=== PATIENT | male | born 1970 | race Caucasian/White ===

== ENCOUNTER 2020-05-01 17:23 | Emergency (ER) | payer MEDICAID, OTHER, SELFPAY ==
--- NOTE | ~2020-05-01 | XR_ITS ---
EXAMINATION: XR chest 1V portable INDICATION: Fever and headache TECHNIQUE: Portable AP chest at 2031 hours COMPARISON: None available FINDINGS: There is a right perihilar and infrahilar airspace opacity. The left lung is clear. No pleu ral effusion or pneumothorax is identified. The cardiomediastinal silhouette is normal. IMPRESSION: 1. Right perihilar and infrahilar airspace opacity, likely infectious. Recommend followup radiographs in 10-14 days after appropriate therapy to evaluate for improvement/resolution. Reviewed, dictated and finalized at location A. IMPRESSION: 1. Right perihilar and infrahilar airspace opacity, likely infectious. Recommen d followup radiographs in 10-14 days after appropriate therapy to evaluate for improvement/resolution.
--- NOTE | ~2020-05-01 | CT_ITS ---
EXAMINATION: CTA chest PE protocol DATE: 05/01/2020 22:45 INDICATION: Chest pain and elevated d-dimer TECHNIQUE: Computed tomography angiography (CTA) of the chest was performed with 100 mL Omnipaque-350 intravenous contrast timed to evaluate the pulmonary arteries. Coronal maximum intensity projection 3D-reconstructions were created by the technologist. The dose-length product (DLP) was 437.04 mGy-cm. Automated exposure control and iterative reconstruction technique were employed. COMPARISON: None. FINDINGS: The pulmonary arteries are well-opacified. Motion artifact slightly limits the examination. No pulmonary embolism is identified. There is an approximately 5.2 x 4.9 cm right perihilar masslike opacity extending into the right middle and upper lobes. The mass attenuates but does not occlude th e associated pulmonary arteries. There is bulky right hilar, right paratracheal, aorticopulmonary win elvis, subcarinal, and upper mediastinal lymphadenopathy. A small right pleural effusion is present. Th ere is no pneumothorax. Mild emphysema is noted. There is mild thoracic spondylosis. IMPRESSION: 1. No pulmonary embolism identified, examination slightly limited by motion artifact. 2. Right perihilar masslike opacity with bulky mediastinal and right hilar lymphadenopathy. Different ial includes pneumonia and primary bronchogenic carcinoma. Recommend serial imaging follow-up with ap propriate therapy to evaluate for improvement/resolution. If no change, recommend bronchoscopy. 3. Mild emphysema. Reviewed, dictated and finalized at location A. IMPRESSION: 1. No pulmonary embolism identified, examination slightly limited by motion art ifact. 2. Right perihilar masslike opacity with bulky mediastinal and right hilar lymp hadenopathy. Differential includes pneumonia and primary bronchogenic carcinoma . Recommend serial imaging follow-up with appropriate therapy to evaluate for i mprovement/resolution. If no change, recommend bronchoscopy. 3. Mild emphysema.
--- NOTE | ~2020-05-01 | CT_ITS ---
EXAMINATION: CT brain wo con INDICATION: Headache COMPARISON: None TECHNIQUE: Standard unenhanced head CT. The dose-length product (DLP) was 605.33 mGy-cm. The mA was a djusted according to patient size. Iterative reconstruction technique was employed. FINDINGS: There is no intracranial hemorrhage, acute infarction, or abnormal mass lesion. The ventric les are normal. There is no abnormal mass effect or midline shift. The gonzalez-white matter differentiat ion is normal. The basal cisterns are patent. The orbits are normal. The paranasal sinuses, mastoids and calvarium are normal. IMPRESSION: 1. No acute intracranial abnormality. Reviewed, dictated and finalized at location A.
[2020-05-01 18:03] VITALS: BP 120/72; PULSE 89; RESP 20; TEMP 38.2; O2SAT 100
[2020-05-01 18:15] LABS: Basophils Absolute Auto 0.1 K/mm3 (0.0-0.1); Basophils Percent Auto 0.6 % (0.2-1.2); Eosinophils Absolute Auto 0.1 K/mm3 (0-0.3); Eosinophils Percent Auto 0.4 % (0-4.4); Hematocrit 38.5 % (42.0-52.0); Hemoglobin 12.8 g/dL (14.0-18.0); Immature Granulocyte Absolute 0.05 K/mm3 (0.00-0.031); Immature Granulocyte Percent A 0.4 % (0-0.5); Lymphocytes Absolute Auto 1.71 K/mm3 (0.9-3.2); Lymphocytes Percent Auto 14.1 % (18.3-44.2); Mean Corpuscular HGB Conc 33.2 g/dl (32-36); Mean Corpuscular Hemoglobin 29.6 pg (26-34); Mean Corpuscular Volume 89.1 fl (80-100); Mean Platelet Volume 9.4 fl (7.4-10.4); Monocytes Absolute Auto 0.6 K/mm3 (0.1-0.6); Neutrophils Absolute Auto 9.6 K/mm3 (1.3-6.7); Neutrophils Percent Auto 79.5 % (45.5-73.1); Platelet Count Result 243 k/mm3 (150-375); Red Blood Count 4.32 M/mm3 (4.6-6.20); Red Cell Distribution Width 12.7 % (11.5-14.5); White Blood Count 12.1 K/mm3 (4.5-10.0)
[2020-05-01 18:31] LABS: Blood Urea Nitrogen 17 mg/dL (9-20); Calcium 8.9 mg/dL (8.4-10.2); Carbon Dioxide 28 mmol/L (22-30); Chloride 101 mmol/L (98-107); Estimated CRCL calculation 80 ml/min; Estimated Glomerular Filt Rate > 60; Glucose 103 mg/dL (75-110); Potassium 3.9 mmol/L (3.4-5.0); Sodium 134 mmol/L (137-145)
--- NOTE | 2020-05-01 20:33 | ED.GENADULT ---
HPI - General Adult General Chief complaint: Unspecified Stated complaint: bodyaches, headaches, no appetite Time Seen by Provider: 05/01/20 20:15 History of Present Illness HPI narrative: Patient is a 49 y/o male complaining of headache, sore throat, cough, chest pain and back pain for 2-3 days. He describes his headache as aching and mild. There is no alleviating or exacerbating factor. He also has poor appetite. He denies any vomiting or diarrhea. He felt hot, but did not check his own temperature. Related Data Allergies Allergy/AdvReac Type Severity Reaction Status Date / Time No Known Allergies Allergy Mild Unverified 11/22/08 15:26 Review of Systems Constitutional: Constitutional: Reports as per HPI, Denies chills, Reports fever(s), Reports headache(s) and Denies weakness Eyes: Eyes: Denies blurry vision ENT: Denies headache(s), Denies neck pain and Reports sore throat Cardiovascular: Cardiovascular: Reports chest pain and Denies dyspnea Respiratory: Respiratory: Reports cough and Denies dyspnea Gastrointestinal: Gastrointestinal: Denies abdominal pain, Denies diarrhea, Denies nausea and Denies vomiting Genitourinary: Genitourinary: Denies hematuria and Denies dysuria Musculoskeletal: Musculoskeletal: Reports back pain and Denies neck pain Neurologic: Reports headache(s), Denies focal weakness and Denies weakness Exam Const: General: no acute distress and well developed Orientation/consciousness: oriented to person, oriented to place, oriented to time and patient oriented x3 HENMT: Head: normocephalic Ears: external ears normal General nose exam: Normal external nose present Eyes: General: appearance normal, both eyes and all related structures Conjunctivae: conjunctivae normal Neck: Neck: normal visual inspection and full ROM Chest: Chest palpation & inspection: normal inspection of the chest and no tenderness Resp: Effort & Inspection: normal respiratory effort Auscultation: clear to auscultation bilaterally Cardio: Rate: regular rate Rhythm: regular rhythm GI: GI Palp: No abdominal tenderness and Yes Soft to palpation Skin: General skin exam: normal color and turgor normal Neuro: General: oriented to person, oriented to place, oriented to time and patient oriented x3 Cognition (Neuro): normal cognition Extrem: General: normal to inspection, full ROM and no pedal edema Psych: Appearance: grossly normal Mental Status: mental status grossly normal Affect: normal affect Course Reevaluation(s) Reevaluation #1: Rechecked. Patient feels better and prefers to go home. Informed patient about CT results which may suggest possible lung mass. Informed patient that he needs to follow up with pulmonary for further work up. Also instructed patient to self isolation pending COVID test results. Date: 05/01/20 Time: 23:29 Consultations Consultation #1: Discussed with Dr. Mendoza (pulmonary), who recommends discharge if patient is stable for discharge and states that patient can follow up with her in office for further evaluation. Date: 05/01/20 Time: 23:28 Vital Signs Vital signs: Vital Signs Temperature 38.2 C H 05/01/20 18:03 Pulse Rate 89 05/01/20 18:03 Respiratory Rate 20 05/01/20 18:03 Blood Pressure 120/72 05/01/20 18:03 Pulse Oximetry 100 05/01/20 18:03 Temperature 37.3 C 05/02/20 00:06 Pulse Rate 90 05/02/20 00:06 Respiratory Rate 20 05/02/20 00:06 Blood Pressure 115/83 05/02/20 00:06 Pulse Oximetry 97 05/02/20 00:06 Medical Decision Making Vital Signs Vital Signs: Vital Signs Temperature 38.2 C H 05/01/20 18:03 Pulse Rate 89 05/01/20 18:03 Respiratory Rate 20 05/01/20 18:03 Blood Pressure 120/72 05/01/20 18:03 Pulse Oximetry 100 05/01/20 18:03 Temperature 37.3 C 05/02/20 00:06 Pulse Rate 90 05/02/20 00:06 Respiratory Rate 20 05/02/20 00:06 Blood Pressure 115/83 05/02/20 00:06 Pulse Oximetry 97 05/02/20 00:06 L
--- NOTE | 2020-05-01 20:36 | ECG_ITS ---
Measurements Intervals [place] Rate: 83 P: 27 DC: 148 QRS: -16 QRSD: 122 T: 28 QT: 352 QTc: 414 Interpretive Statements SINUS RHYTHM RIGHT BUNDLE BRANCH BLOCK MINIMAL Q WAVES- HIGH LATERAL LEADS ABNORMAL ECG Electronically Signed On 05-02-2020 7:12:23 CDT by Ry Paulino D.O.
[2020-05-01 21:10] VITALS: BP 132/76; PULSE 81; RESP 18; O2SAT 96
[2020-05-01 21:16] LABS: Troponin I < 0.012 ng/mL (0.000-0.034)
[2020-05-01] MEDS: SODIUM CHLORIDE 0.9% IV 1,000 ML 999 ML IV CONT (21:48)
[2020-05-01 22:08] VITALS: RESP 22; O2SAT 98
[2020-05-01 22:08] LABS: Lactic Acid Reflex 0.8 mmol/L (0.7-2.1)
[2020-05-01 22:09] LABS: D Dimer 1.16 ug/mL (<0.48)
[2020-05-01 22:15] VITALS: BP 123/80; PULSE 86; RESP 22; O2SAT 98
--- NOTE | 2020-05-01 22:44 | PC.NURSE ---
Patient in CT at this time.
[2020-05-01 22:52] LABS: Add Urine Microscopic? YES; Appearance Urine Clear (Clear); Bilirubin Urine Negative (Negative); Blood Urine 1+ (Negative); Color Urine Straw (Yellow); Glucose Urine UA Negative (Negative); Ketones Urine Negative (Negative); Leukocyte Esterase Ur Negative LEU/UL (Negative); Mucus Urine Rare /lpf; Nitrate Urine Negative (Negative); Protein Urine Negative (Negative); RBC Urine 0-2 /hpf (0-2); Specific Grav Ur 1.013 (1.001-1.035); Urobilinogen Urine Negative mg/dL (<2.0); WBC Urine 0-3 /hpf
[2020-05-01 23:31] VITALS: BP 115/83; PULSE 85; RESP 21; O2SAT 96
[2020-05-02 00:06] VITALS: BP 115/83; PULSE 90; RESP 20; TEMP 37.3; O2SAT 97
[2020-05-02 15:05] LABS: SARS-CoV-2 RNA PCR Negative
== END 2020-05-02 00:08 | disposition home or self-care (01) ==
PROVIDERS: Emergency Provider Emergency Medicine
DX: Z20.828 Contact with and (suspected) exposure to other viral communicable diseases (principal); J18.9 Pneumonia, unspecified organism; D38.1 Neoplasm of uncertain behavior of trachea, bronchus and lung
CPT/HCPCS: 36415; 70450; 71045; 71275; 80048; 81001; 83605; 84484; 85025; 85380; 87040; 87081; 87635; 87880; 93005; 96361; 96365; 96375; 99284; C9803; J0456; J0696; J7030; Q9967; U0003

== ENCOUNTER 2020-05-17 11:34 | Inpatient (IN) | payer MEDICAID, SELFPAY ==
--- NOTE | ~2020-05-17 | XR_ITS ---
EXAMINATION: XR chest 2V DATE: 05/17/2020 11:58 INDICATION: Shortness of breath TECHNIQUE: PA and lateral views of the chest are obtained. COMPARISON: 05/01/2020 FINDINGS: There has been interval worsening of the previously described right perihilar masslike opac ity extending into the middle and upper lobes. There is a trace right pleural effusion. The left lung is clear. The cardiomediastinal silhouette is normal. The visualized osseous structures are unremark able. Widening of the right paratracheal stripe is consistent with mediastinal lymphadenopathy seen o n the comparison CT. IMPRESSION: 1. Interval worsening of the previously described right perihilar masslike opacity which could reflec t worsening pneumonia or primary bronchogenic carcinoma. If patient has undergone trial of antibiotic s without response, would recommend bronchoscopy. Reviewed, dictated and finalized at location A. IMPRESSION: 1. Interval worsening of the previously described right perihilar masslike opac ity which could reflect worsening pneumonia or primary bronchogenic carcinoma. If patient has undergone trial of antibiotics without response, would recommend bronchoscopy.
[2020-05-17 11:40] VITALS: BP 130/89; PULSE 97; RESP 18; TEMP 36.4; O2SAT 97
--- NOTE | 2020-05-17 11:44 | ECG_ITS ---
Measurements Intervals [place] Rate: 85 P: 18 NM: 132 QRS: -4 QRSD: 104 T: 22 QT: 350 QTc: 418 Interpretive Statements SINUS RHYTHM INCOMPLETE RIGHT BUNDLE BRANCH BLOCK BORDERLINE ECG Electronically Signed On 05-17-2020 12:48:05 CDT by Ry Paulino D.O.
[2020-05-17 11:53] LABS: Basophils Absolute Auto 0.1 K/mm3 (0.0-0.1); Basophils Percent Auto 0.8 % (0.2-1.2); Eosinophils Absolute Auto 0.2 K/mm3 (0-0.3); Eosinophils Percent Auto 1.4 % (0-4.4); Hematocrit 37.8 % (42.0-52.0); Hemoglobin 12.5 g/dL (14.0-18.0); Immature Granulocyte Absolute 0.25 K/mm3 (0.00-0.031); Immature Granulocyte Percent A 2.4 % (0-0.5); Lymphocytes Absolute Auto 1.42 K/mm3 (0.9-3.2); Lymphocytes Percent Auto 13.7 % (18.3-44.2); Mean Corpuscular HGB Conc 33.1 g/dl (32-36); Mean Corpuscular Hemoglobin 29.1 pg (26-34); Mean Corpuscular Volume 87.9 fl (80-100); Mean Platelet Volume 9.2 fl (7.4-10.4); Monocytes Absolute Auto 0.6 K/mm3 (0.1-0.6); Monocytes Percent Auto 5.8 % (2.6-8.5); Neutrophils Absolute Auto 7.9 K/mm3 (1.3-6.7); Neutrophils Percent Auto 75.9 % (45.5-73.1); Platelet Count Result 363 k/mm3 (150-375); Red Cell Distribution Width 12.3 % (11.5-14.5); White Blood Count 10.4 K/mm3 (4.5-10.0)
[2020-05-17 12:06] LABS: Anion Gap 12.5 mmol/L (7-16); Blood Urea Nitrogen 11 mg/dL (9-20); Calcium 9.5 mg/dL (8.4-10.2); Carbon Dioxide 28 mmol/L (22-30); Chloride 99 mmol/L (98-107); Estimated Glomerular Filt Rate > 60; Glucose 99 mg/dL (75-110); Potassium 4.5 mmol/L (3.4-5.0); Sodium 135 mmol/L (137-145)
--- NOTE | 2020-05-17 12:29 | ED.SOB ---
HPI - SOB/Dyspnea General Chief Complaint: Shortness of Breath/Dyspnea Stated Complaint: SOB Time Seen by Provider: 05/17/20 11:43 Source: patient Mode of arrival: ambulatory Limitations: no limitations History of Present Illness HPI Narrative: This patient is a 49 year old male who presents for evaluation shortness of breath . He states he has been having sob for 2 weeks. He was evaluated 2 weeks ago at [facility] . He was diagnosed with pneumonia and a lung mass. He has completed his antibiotics, and he states he is getting worse. He states he thinks he is still having fever because he is swelling at night. Related Data Home Medications Medication Instructions Recorded Confirmed No Home Medications 05/17/20 05/17/20 Allergies Allergy/AdvReac Type Severity Reaction Status Date / Time No Known Allergies Allergy Mild Unverified 11/22/08 15:26 Review of Systems Review of Systems: All systems reviewed & are unremarkable except as noted in HPI and below Constitutional: Constitutional: Reports fatigue Cardiovascular: Cardiovascular: Reports chest pain Respiratory: Respiratory: Reports cough, Reports hemoptysis and Reports dyspnea Gastrointestinal: Gastrointestinal: Denies abdominal pain and Denies nausea Neurologic: Denies dizziness and Denies headache(s) [facility] Past Medical History Medical History (Updated 05/17/20 @ 19:07 by Ania Becerra MD) COPD (chronic obstructive pulmonary disease) History of tobacco abuse stopped May 01, 2020 Lung mass Patient denies medical problems Family History Family History (Updated 05/17/20 @ 18:28 by Karrie Mendoza MD) Mother Hypertension Cerebrovascular accident Diabetes mellitus Son Shortness of Breath due to welding Social History Social History (Updated 05/17/20 @ 18:28 by Karrie Mendoza MD) Smoking packs per day: 1 Smoking cigarettes per day: 20.0 Years smoked: 20 Smoking pack-years: 20.00 Smoking status: Former smoker Tobacco type: cigarettes Alcohol intake: current Drinks per week: 1 Substance use: current Substance use type: marijuana Other substance usage details: occasional Last use: 05/06/20 Living arrangements: with family Additional living arrangements comments: girlfriend, and others Occupation/Education: occupation Additional occupation/education comments: [employer], works really hard, has not been able to work since May 01 Gender identity (if verbalized by the patient): Male Spiritual care concerns: Yes Exam Const: General: alert Orientation/consciousness: patient oriented x3 HENMT: Head: normocephalic and atraumatic Face and sinus: face symmetric Mouth: Yes moist mucous membranes Throat: tonsils normal and uvula midline Eyes: Pupils: Equal, round and reactive pupils present EOM: EOMs intact bilaterally Neck: Neck: no lymphadenopathy Chest: Chest palpation & inspection: normal inspection of the chest Resp: Auscultation: wheezes right upper and posterior Other: at rest patient in no distress , He appears out of breath with talking . Cardio: Rate: regular rate Rhythm: regular rhythm Heart sounds: no murmurs GI: GI Palp: Yes Soft to palpation, No Tenderness to palpation present (GI), No Guarding due to palpation present (GI) and No Rigid due to palpation Skin: General skin exam: normal color Rashes: no rashes Neuro: General: patient oriented x3 and moves all extremities Course Consultations Consultation #1: I Discussed case and CT with Dr. Mendoza. She states she will look up his info and possible perform bronchoscopy tomorrow Date: 05/17/20 Time: 12:30 Consultation #2: I Discussed patient with zheng who accepts to hospitalist service. Date: 05/17/20 Time: 13:43 Vital Signs Vital signs: Vital Signs Temperature 97.5 F L 05/17/20 11:40 Pulse Rate 97 05/17/20 11:40 Respiratory Rate 18 05/17/20 11:40 Blood Pressure 130/89 05/17/20 11:
[2020-05-17 12:44] LABS: Alveolar/Arterial O2 Gradient 34.7 mmHg; Carboxyhemoglobin 0.3 % THb (0-2.0); Fractional Inspired Oxygen 21 %; HCO3 ABG 26.5 mEq/l (22.0-26.0); Methemoglobin ABG 0.1 %THb (0-1.5); Oxygen Content ABG 16.1 %vol (16.0-22.0); Oxygen Saturation ABG 95.4 % (95.0-100.0); Oxyhemoglobin 93.9 % THb (90.0-100.0); PCO2 ABG 36.5 mmHg (35.0-45.0); PO2 ABG 71.3 mmHg (80.0-100.0); Reduced Hemoglobin 5.7 %THb (0-5.0); Total Hemoglobin 12.2 g/dL (12.0-18.0); pH ABG 7.478 (7.350-7.450)
[2020-05-17 12:46] LABS: Device ROOM AIR; Modified Allen's Test Pass; Site Drawn LEFT RADIAL
[2020-05-17 13:05] LABS: INR 1.1; Prothrombin Time 13.5 Seconds (11.1-14.7)
[2020-05-17 13:06] LABS: Partial Thromboplastin Time 34.1 SECONDS (22.3-36.8)
[2020-05-17 13:11] LABS: Alanine Aminotransferase 48 U/L (4-50); Albumin Level 3.7 g/dL (3.5-5.1); Alkaline Phosphatase 105 U/L (38-126); Aspartate Amino Transferase 146 U/L (17-59); Bilirubin,Total 0.2 mg/dL (0.2-1.3)
[2020-05-17 13:22] LABS: Troponin I < 0.012 ng/mL (0.000-0.034)
[2020-05-17 13:39] VITALS: BP 138/70; PULSE 93; RESP 20; O2SAT 99
[2020-05-17 15:02] VITALS: BP 128/87; PULSE 83; RESP 22; O2SAT 97
[2020-05-17 15:19] VITALS: BP 115/70; PULSE 85; RESP 22; O2SAT 97
[2020-05-17 15:33] VITALS: BP 143/82; PULSE 85; RESP 16; TEMP 36.9; O2SAT 99; BMI 27.9
--- NOTE | 2020-05-17 15:33 | ADMGEN ---
This patient, Sourav Pool, was admitted to Medical Room 343-01. Patient/family oriented to hospital policies and general routines including ID bracelet, bed and alarms, visiting hours, pain management, procedures, bathroom and other care routines, personal items, smoking policy, room service/diet, and visiting hours. Valuables list has been completed. Information on how to activate the Rapid Response Team has been discussed. Patient/Family are encouraged to report perceived risks to care and to ask questions if they do not understand what they are told or what they should do.
[2020-05-17 15:57] VITALS: BMI 29.0
--- NOTE | 2020-05-17 18:07 | PM.CNPUL ---
Assessment and Plan Assessment and plan (1) Lung mass: Code(s): R91.8 - Other nonspecific abnormal finding of lung field Status: Acute Assessment and Plan: He has a right hilar mass 5.2 x 4.9 cm noted on CTA 05/01/2020 when he was treated for pneumonia. He is no better, continuing to cough now with small amounts of hemoptysis. He is short of breath. He has not been well enough to go back to work. Mild hyponatremia, normocytic anemia, mild hypoxemia. Concern is for lung cancer. PLAN: Bronchoscopy 12 noon on May 18 NPO after midnight empiric antibiotics for possible coexisting pneumonia bronchodilator therapy for emphysema I spoke with the patient, explained the procedure. I spoke with his father Kevin Serna [phone], and explained that we are planning the bronch tomorrow. (2) Recurrent pneumonia: Code(s): J18.9 - Pneumonia, unspecified organism Status: Acute Assessment and Plan: He still has infiltrate on the right side, may be a postobstructive pneumonia or slowly resolving pneumonia versus recurrent pneumonia. He received ceftriaxone in the emergency department. I will restart this, will receive a 2nd dose tomorrow. continues have a mild leukocytosis, cough, shortness of breath, right-sided infiltrate. (3) COPD (chronic obstructive pulmonary disease): Code(s): J44.9 - Chronic obstructive pulmonary disease, unspecified Status: Acute Assessment and Plan: Mild emphysema noted on chest CTA May 01; add bronchodilator therapy (4) Shortness of Breath: Code(s): R06.02 - Shortness of breath Status: Acute Assessment and Plan: worsening over the last 2 weeks with cough, hemoptysis, failure to improve on treatment for pneumonia (5) History of tobacco abuse: Code(s): Z87.891 - Personal history of nicotine dependence Status: Acute Assessment and Plan: stopped May 01, ppd x 20 years History of Present Illness History of Present Illness Consult date: 05/17/20 Requesting physician: Catie Gaona MD Chief complaint: right lung mass,dyspnea Narrative: NEW: Right lung mass Sourav Pool is a 49 yo man with a large right lung mass. He was in the ED May 01 with cough, sputum shortness of breath, was treated for pneumonia. He has not gone back to work since then. He has had worsening cough with bloody sputum. He has not eaten well for the last few weeks. He has not smoked since the last ER visit. He has not lost weight, but has not checked. His sodium is mildly decreased 135, low. WBC 10.4, mild normocytic anemia H/H 12.5/37.8%, mild oxygen deficit on room air, pH 7.478 / pCO2 36.5 / 71 pO2 / 26 HCO3 / 95.4%, PT 13, PTT 34, normal. Continues to have infiltrate on the right side on CXR. SARS-CoV-2 negative May 01 at ER visit. Review of Systems Review of Systems: All systems reviewed & are unremarkable except as noted in HPI and below (HPI) Eyes: Eyes: Reports no additional eye complaints Cardiovascular: Cardiovascular: Reports chest pain (right side of chest hurts with taking deep breaths) Respiratory: Respiratory: Reports cough, Reports hemoptysis and Reports dyspnea Gastrointestinal: Gastrointestinal: Reports other (decreased appetite) Genitourinary: Genitourinary: Denies dysuria Endocrine: Endocrine: Reports polydipsia [facility] Past Medical History Medical History (Updated 05/17/20 @ 18:52 by Karrie Mendoza MD) COPD (chronic obstructive pulmonary disease) History of tobacco abuse stopped May 01, 2020 Lung mass Patient denies medical problems Family History Family History (Up
[2020-05-17 22:19] VITALS: BP 132/79; PULSE 90; RESP 16; TEMP 36.9; O2SAT 99
[2020-05-18] VITALS (13 sets, daily range): BP systolic 92–132; BP diastolic 50–75; PULSE 76–91; RESP 16–30; TEMP 36.3–37.5; O2SAT 93–100; BMI 29.0
--- NOTE | 2020-05-18 00:20 | PM.IMHP ---
H&P: HPI History of Present Illness Date/Time: 05/18/20 00:20 Chief complaint: right lung mass,dyspnea Narrative: Sourav Pool is a 49 year old male who came to the er on 05/01/20. He was diagnosed with pneumonia at that time. He has been having a poor appetite. And a cough. He had been a smoker. The patient was treated with a Zithromax and at that time. He tells me that he had a Choice of staying inpatient or going home. on 05/01/2020 his chest x-ray was read as right perihilar and infrahilar airspace opacities likely infectious recommend follow-up in 10-14 days after therapy. He also had a head CT that day that was read as no acute intracranial abnormalities. chest x-ray was read as interval worsening of the previously described right perihilar masslike opacity which could reflect worsening pneumonia her primary bronchogenic carcinoma. Recommended bronchoscopy. The chest CT a on 05/01/20 was read as no pulmonary embolism right perihilar masslike opacities bulky mediastinal and right hilar lymphadenopathy. Differential includes orders and primary bronchogenic carcinoma. mild emphysema. the patient has since quit smoking since that day. He had a repeat chest x-ray today that was read as interval worsening of the previous described right perihilar masslike is which could reflect of her pneumonia primary bronchogenic carcinoma. Dr. Mendoza has been consulted and has already seen the patient. She has him scheduled for a bronchoscopy Tomorrow. The patient had come to the emergency room due to evaluation of shortness of breath. Has been short of breath for 2 weeks. Patient does not know if he has a fever but he has been having night sweats. I have spent approximately 45 minutes with the patient. Date of service is 05/17/2020 Review of Systems Review of Systems: All systems reviewed & are unremarkable except as noted in HPI and below Constitutional: Constitutional: Reports as per HPI and Reports no additional constitutional complaints Eyes: Eyes: Reports as per HPI and Reports no additional eye complaints ENT: Reports system reviewed and no additional complaints, except as documented and Reports Normal hearing present Cardiovascular: Cardiovascular: Reports no additional cardiovascular complaints Respiratory: Respiratory: Reports no additional respiratory complaints and Reports no additional respiratory complaints Gastrointestinal: Gastrointestinal: Reports as per HPI and Reports no additional gastrointestinal complaints Musculoskeletal: Musculoskeletal: Reports no additional musculoskeletal complaints Integumentary/Breasts: Skin/Breast: Reports system reviewed and no additional complaints, except as docu and Reports as per HPI Neurologic: Reports system reviewed and no additional complaints, except as documented, Reports as per HPI and Reports Normal hearing present Psychiatric: Psychiatric: Reports no additional psychiatric complaints and Reports as per HPI Endocrine: Endocrine: Reports no additional endocrine complaints Hematologic/Lymphatic: Hematologic/Lymphatic: Reports no additional hematologic/lymphatic complaints Allergic/Immunologic: Allergic/Immunologic: Reports no additional allergic/immunologic complaints [facility] Past Medical History Medical History COPD (chronic obstructive pulmonary disease) History of tobacco abuse stopped May 01, 2020 Lung mass Patient denies medical problems Family History Family History Mother Hypertension Cerebrovascular accident Diabetes mellitus Son Shortness of Breath due to welding Social History Social History (Updated 05/18/20 @ 00:39 by Monica Agosto NP) Social History: the patient stated that he has 2 children and he lives with his girlfriend. He is a [employer]. Patient tells me that he quit smoking May 06, 2020. He occasionally uses marijuana.
[2020-05-18] MEDS: MORPHINE SULFATE 4 MG/ML INJ IV PUSH ×2 (06:01→19:43)
[2020-05-18 06:32] LABS: Basophils Absolute Auto 0.1 K/mm3 (0.0-0.1); Basophils Percent Auto 0.7 % (0.2-1.2); Eosinophils Absolute Auto 0.1 K/mm3 (0-0.3); Eosinophils Percent Auto 0.9 % (0-4.4); Hematocrit 35.2 % (42.0-52.0); Hemoglobin 11.6 g/dL (14.0-18.0); Immature Granulocyte Absolute 0.25 K/mm3 (0.00-0.031); Immature Granulocyte Percent A 2.8 % (0-0.5); Lymphocytes Absolute Auto 1.35 K/mm3 (0.9-3.2); Lymphocytes Percent Auto 15.3 % (18.3-44.2); Mean Corpuscular Hemoglobin 28.6 pg (26-34); Mean Corpuscular Volume 86.9 fl (80-100); Mean Platelet Volume 9.3 fl (7.4-10.4); Monocytes Absolute Auto 0.5 K/mm3 (0.1-0.6); Neutrophils Absolute Auto 6.5 K/mm3 (1.3-6.7); Neutrophils Percent Auto 74.3 % (45.5-73.1); Platelet Count Result 337 k/mm3 (150-375); Red Blood Count 4.05 M/mm3 (4.6-6.20); Red Cell Distribution Width 12.3 % (11.5-14.5); White Blood Count 8.8 K/mm3 (4.5-10.0)
[2020-05-18 06:51] LABS: Alanine Aminotransferase 53 U/L (4-50); Albumin Level 3.9 g/dL (3.5-5.1); Alkaline Phosphatase 109 U/L (38-126); Anion Gap 13.5 mmol/L (7-16); Aspartate Amino Transferase 169 U/L (17-59); Bilirubin,Total 0.3 mg/dL (0.2-1.3); Blood Urea Nitrogen 14 mg/dL (9-20); Calcium 9.4 mg/dL (8.4-10.2); Carbon Dioxide 27 mmol/L (22-30); Chloride 97 mmol/L (98-107); Estimated CRCL calculation 90 ml/min; Estimated Glomerular Filt Rate > 60; Glucose 101 mg/dL (75-110); Potassium 4.5 mmol/L (3.4-5.0); Sodium 133 mmol/L (137-145)
--- NOTE | 2020-05-18 10:54 | PM.IMPN ---
Progress Note: A&P Assessment and Plan (1) Lung mass: Code(s): R91.8 - Other nonspecific abnormal finding of lung field Status: Acute Assessment and Plan: A right hilar mass 5.2 x 4.9 cm was seen on CTA 05/01/2020. These findings are concerning for lung cancer. he is maintaining adequate oxygenation on room air. Pulmonology has been consulted and recommendations are appreciated He underwent bronchoscopy this afternoon. He tolerated the procedure well. Will await results. (2) Recurrent pneumonia: Code(s): J18.9 - Pneumonia, unspecified organism Status: Acute Assessment and Plan: right side infiltrate noted. he was recently treated with a course of azithromycin but has not improved since that time.This may be a postobstructive pneumonia. He complains of cough and shortness of breath. He is afebrile and without leukocytosis. Continue IV Rocephin. Continue supportive care with supplemental oxygen as needed, acetaminophen for fever, bronchodilators, and Mucinex Will attempt collection of sputum culture. blood cultures are pending. (3) COPD (chronic obstructive pulmonary disease): Code(s): J44.9 - Chronic obstructive pulmonary disease, unspecified Status: Acute Assessment and Plan: Chronic. He is maintaining adequate oxygenation. Continue albuterol and Spiriva. (4) History of tobacco abuse: Code(s): Z87.891 - Personal history of nicotine dependence Status: Acute Assessment and Plan: He smoked 1 pack per day for 20 years. He quit smoking on 05/01/2020. Congratulated patient on smoking cessation. Reinforce continued cessation. Subjective Date/time seen: 05/18/20 10:54 Interval history: Date of service: 05/18/2020 he reports he is feeling well. He is coughing occasionally with clear sputum production. He feels mildly short of breath. He has just returned from his bronchoscopy and reports he tolerated the procedure well but is feeling very sleepy. He denies any wheezing, chest pain or palpitations. he complains of sinus congestion and pressure across his frontal face. He denies nausea, vomiting, fever, chills, dizziness, or lightheadedness. He has not eaten anything as he had been NPO for his bronchoscopy. He has no additional concerns at this time. Review of Systems Review of Systems: Narrative: A 12 point review of systems was reviewed with pertinent positives and negatives as per HPI. Exam Narrative: Exam Narrative: Mr. Pool is a well-nourished 49-year-old male who is lying supine in bed. He appears comfortable and is in no acute distress. HR 76, BP 121/69, RR 16, T 99.0?, 98% on room air Neuro: awake, alert and oriented x4, speech clear, no focal neuro deficits noted HEENMT: normocephalic, atraumatic, EOMI, sclerae anicteric, moist oral mucosa, tongue midline, nares patent, no sinus tenderness Neck: supple, no lymphadenopathy Respiratory: diminished breath sounds without wheezing or crackles, normal respiratory effort Cardio: regular rate, regular rhythm with S1-S2 Abdomen: nondistended, normoactive bowel sounds, soft, nontender Extremities: no edema, erythema, cyanosis, clubbing, or tenderness to palpation, DP pulses 2+ bilaterally Skin: no rashes or lesions, warm and dry Psych: appropriate mood an affect, judgment and insight intact Objective Data Vital Signs Vital Signs: Vital Signs - 24 hr 05/17/20 11:40 05/17/20 13:39 05/17/20 15:02 Temperature 97.5 F L Pulse Rate 97 93 83 Respiratory Rate 18 20 22 H Blood Pressure 130/89 138/70 128/87 Pulse Oximetry 97 99 97 05/17/20 15:19 05/17/20 15:33 05/17/20 22:19 Temperature 98.4 F 98.5 F Pulse Rate 85 85 90 Respiratory Rate 22 H 16 16 Blood Pressure 115/70 143/82 H 132/79 Pulse Oximetry 97 99 99 05/18/20 06:00 Temperature 99 F Pulse Rate 76 Respiratory Rate 16 Blood Pressure 121/69 Pulse Oximetry 99 Intake/Ou
--- NOTE | 2020-05-18 11:07 | PC.NURSE ---
Patient to GI lab for procedure per stretcher.
[2020-05-18] MEDS: LACTATED RINGERS 1,000 ML 150 ML IV CONT (11:23)
--- NOTE | 2020-05-18 11:38 | WPDANESEPPF ---
Anes - Initial Pre Proc Eval Procedure: Operation Date: 05/18/20 12:00 Proposed Procedures p Bronchoscopy - Karrie Mendoza MD Date/Time: 05/18/20 11:38 Surgeon: Nia Snowden PA-C Pre Op Diagnosis: right lung mass,dyspnea Patient Data Age: 49 Gender: M Height: 5 ft 6 in Weight: 81.6 kg Last Vital Signs Temp 97.7 F 05/18/20 11:26 Pulse 82 05/18/20 11:26 Resp 22 H 05/18/20 11:26 BP 132/75 05/18/20 11:26 Pulse Ox 97 05/18/20 11:26 Allergies Allergy/AdvReac Type Severity Reaction Status Date / Time No Known Allergies Allergy Mild Verified 05/18/20 11:23 Home Medications Medication Instructions Recorded Confirmed Type No Home Medications 05/17/20 05/17/20 History Laboratory Tests 05/17/20 05/17/20 05/17/20 11:46 11:46 12:25 WBC 10.4 K/mm3 H K/mm3 (4.5-10.0) RBC 4.30 M/mm3 L M/mm3 (4.6-6.20) Hgb 12.5 g/dL L g/dL (14.0-18.0) Hct 37.8 % L % (42.0-52.0) MCV 87.9 fl fl (80-100) MCH 29.1 pg pg (26-34) MCHC 33.1 g/dl g/dl (32-36) RDW 12.3 % % (11.5-14.5) Plt Count 363 k/mm3 k/mm3 (150-375) MPV 9.2 fl fl (7.4-10.4) Immature Gran % (Auto) 2.4 % H % (0-0.5) Neut % (Auto) 75.9 % H % (45.5-73.1) Lymph % (Auto) 13.7 % L % (18.3-44.2) [place] % (Auto) 5.8 % % (2.6-8.5) Eos % (Auto) 1.4 % % (0-4.4) Baso % (Auto) 0.8 % % (0.2-1.2) Lymph # (Auto) 1.42 K/mm3 K/mm3 (0.9-3.2) [place] # (Auto) 0.6 K/mm3 K/mm3 (0.1-0.6) Eos # (Auto) 0.2 K/mm3 K/mm3 (0-0.3) Baso # (Auto) 0.1 K/mm3 K/mm3 (0.0-0.1) Abs Immat Gran (auto) 0.25 K/mm3 H K/mm3 (0.00-0.031) Absolute Neuts (auto) 7.9 K/mm3 H K/mm3 (1.3-6.7) Absolute Nucleated RBC 0.0 K/mm3 K/mm3 (0.0-0.012) Nucleated RBC % 0.0 % % (0.0-0.2) PT 13.5 Seconds Seconds (11.1-14.7) INR 1.1 APTT 34.1 SECONDS SECONDS (22.3-36.8) Puncture Site ABG pH ABG pCO2 ABG pO2 ABG PO2/FiO2 Ratio ABG HCO3 ABG O2 Saturation ABG O2 Content ABG Base Excess A-a Gradient Oxyhemoglobin Carboxyhemoglobin Methemoglobin Reduced Hemoglobin Total Hemoglobin O2 Delivery Device O2 Liters/Min FiO2 Sodium 135 mmol/L L mmol/L (137-145) Potassium 4.5 mmol/L mmol/L (3.4-5.0) Chloride 99 mmol/L mmol/L (98-107) Carbon Dioxide 28 mmol/L mmol/L (22-30) Anion Gap 12.5 mmol/L mmol/L (7-16) BUN 11 mg/dL D mg/dL (9-20) Creatinine 0.70 mg/dL mg/dL (0.7-1.3) Estim Creat Clear Calc Not Reportable Estimated GFR > 60 (59 - ) Glucose 99 mg/dL mg/dL (75-110) Calcium 9.5 mg/dL mg/dL (8.4-10.2) Total Bilirubin Direct Bilirubin AST ALT Alkaline Phosphatase Troponin I Total Protein Albumin 05/17/20 05/17/20 05/17/20 12:40 12:47 12:47 WBC RBC Hgb Hct MCV MCH MCHC RDW Plt Count MPV Immature Gran % (Auto) Neut % (Auto) Lymph % (Auto) [place] % (Auto) Eos % (Auto) Baso % (Auto) Lymph # (Auto) [place] # (Auto) Eos # (Auto) Baso # (Auto) Abs Immat Gran (auto) Absolute Neuts (auto) Absolute Nucleated RBC Nucleated RBC % PT INR APTT
[2020-05-18] MEDS: LIDOCAINE HCL 2% LOCAL INJ 20 ML VIAL INTRADERM (12:08)
--- NOTE | 2020-05-18 12:49 | SUR.PHASEII ---
1231 Pt to recovery. Lungs coarse to auscultation. Drowsy and coughing.
--- NOTE | 2020-05-18 13:09 | SUR.PHASEII ---
Rt side exp wheezes, decreased o2 to 1l NC. O2 saturations 96-98%. Occasional dry cough.
--- NOTE | 2020-05-18 13:45 | PC.NURSE ---
Patient returned from GI lab per stretcher.
--- NOTE | 2020-05-18 14:10 | PCNSR ---
On 05/18/20, the student, Carlos Davalos, provided care and completed [facility] documentation on this patient. I have reviewed the student's documentation and agree with the findings.
--- NOTE | 2020-05-18 15:20 | SUR.OPER ---
1228 pt received only 2ml of 2% Lidocaine during procedure.
[2020-05-18] MEDS: guaiFENesin 12 HR 600 MG TABCR PO (21:16)
[2020-05-19] VITALS (7 sets, daily range): BP systolic 115–125; BP diastolic 57–78; PULSE 89–108; RESP 20–22; TEMP 36–37.4; O2SAT 95–98
[2020-05-19] MEDS: ALBUTEROL SULFATE (*SP) AEROSOL 1 PUFF 2 PUFF INHALATION (01:33)
[2020-05-19] MEDS: MORPHINE SULFATE 4 MG/ML INJ IV PUSH (04:01)
[2020-05-19 05:50] LABS: Alanine Aminotransferase 58 U/L (4-50); Albumin Level 3.9 g/dL (3.5-5.1); Alkaline Phosphatase 115 U/L (38-126); Anion Gap 13.7 mmol/L (7-16); Aspartate Amino Transferase 210 U/L (17-59); Bilirubin,Total 0.3 mg/dL (0.2-1.3); Blood Urea Nitrogen 14 mg/dL (9-20); Calcium 9.3 mg/dL (8.4-10.2); Carbon Dioxide 28 mmol/L (22-30); Chloride 97 mmol/L (98-107); Estimated CRCL calculation 90 ml/min; Estimated Glomerular Filt Rate > 60; Glucose 110 mg/dL (75-110); Potassium 4.7 mmol/L (3.4-5.0); Sodium 134 mmol/L (137-145)
--- NOTE | 2020-05-19 07:52 | WPDANESPN ---
Anes - Prog Note Post-Op Date/Time: 05/19/20 07:52 Cardiovascular status: normal Respiratory status: normal Airway patency: baseline Mental status: baseline Post-Op hydration status: normal Vital Signs: Last Vital Signs Temp 36.4 C 05/19/20 06:33 Pulse 108 H 05/19/20 04:00 Resp 20 05/19/20 04:00 BP 123/78 05/19/20 04:00 Pulse Ox 96 05/19/20 04:00 I/O: Intake & Output 05/18/20 05/18/20 05/19/20 15:59 23:59 07:59 Intake Total 250 662 400 Balance 250 662 400 Laboratory Tests 05/18/20 05:46 05/19/20 05:21 05/19/20 05:21 Sodium 134 L Potassium 4.7 Chloride 97 L Carbon Dioxide 28 Anion Gap 13.7 BUN 14 Creatinine 0.80 Estim Creat Clear Calc 90 Estimated GFR > 60 Glucose 110 Calcium 9.3 Total Bilirubin 0.3 AST 210 H ALT 58 H Alkaline Phosphatase 115 Total Protein 8.0 Albumin 3.9 Microbiology 05/18/20 01:14 Blood Blood Culture - Preliminary Post-procedural complaints: none Patient Feedback: Patient satisfied with anesthetic care.
[2020-05-19] MEDS: guaiFENesin 12 HR 600 MG TABCR PO (08:52)
--- NOTE | 2020-05-19 14:00 | PM.PNPUL ---
Progress Note: A&P Assessment and Plan (1) Lung cancer: Qualifiers: Laterality: right Code(s): C34.90 - Malignant neoplasm of unspecified part of unspecified bronchus or lung Status: Acute Assessment and Plan: Has (+) bronchoscopy pathology showing small cell and possibly another cell type. Stains are pending, will be back on Friday. ZEE Worthy has arranged Dr Ramirez's office to call him next week for an appointment. He will go home on albutero lrescue inhaler, needs to get a primary care doctor, and have repeat labs to recheck his LFTs which are increasing. I recommend Anoro one puff a day and albuterol rescue inhaler for use as needed for shortness of breath, and follow up in our office if desired. He is going to arrange for a primary care doctor. PFTs for baseline measurements and evaluation of COPD. (2) COPD (chronic obstructive pulmonary disease): Code(s): J44.9 - Chronic obstructive pulmonary disease, unspecified Status: Acute Assessment and Plan: see above; not smoking since May 01 ER visit (3) Recurrent pneumonia: Code(s): J18.9 - Pneumonia, unspecified organism Status: Acute Assessment and Plan: going home on oral antibiotics; mainly has lung cancer with some post obstructive secretions gary RUL Subjective Date/time seen: 05/19/20 14:00 49 yo man is seen for right lung mass, had bronch yesterday. Pathology is (+) for malignancy, small cell and he may have a large cell component also. Additional stains are pending. These will be out Friday. Per the patient's request, I spoke with his father, Kevin Serna [phone], and told him about the path results. Review of Systems Review of Systems: All systems reviewed & are unremarkable except as noted in HPI and below (has generalized muscle aches) Exam Narrative: Exam Narrative: GEN: This 49 yo man is sitting on the side of the bed, resp rate 16, not dyspneic; Alert and oriented. HEENT: pupils equal reactive to light, no sinus tenderness, no nasal drainage; dry oral membranes NECK: no palpable lymphadenopathy, neck is supple CHEST: equal air entry, no wheezes crackles or rhonchi; chest wall is not tender to palpation CV: regular S1 and S2 without a murmur or gallop EXTREMITIES: no clubbing, no cyanosis, no edema; no calf tenderness; good muscle mass Objective Data Vital Signs Vital Signs: Vital Signs - 24 hr 05/18/20 14:16 05/18/20 14:32 05/18/20 15:33 Temperature 37.2 C 37.0 C 36.9 C Pulse Rate 81 80 83 Respiratory Rate 22 H 20 20 Blood Pressure 113/58 L 114/56 L 122/71 Pulse Oximetry 94 95 97 05/18/20 19:40 05/19/20 01:34 05/19/20 02:00 Temperature 37.5 C 37.4 C Pulse Rate 91 103 H 94 Respiratory Rate 16 20 Blood Pressure 126/65 116/57 L Pulse Oximetry 95 97 05/19/20 04:00 05/19/20 06:33 05/19/20 08:00 Temperature 36.8 C 36.4 C 36.1 C L Pulse Rate 108 H 89 Respiratory Rate 20 20 Blood Pressure 123/78 125/62 Pulse Oximetry 96 95 05/19/20 12:00 Temperature 36.0 C L Pulse Rate 89 Respiratory Rate 22 H Blood Pressure 116/71 Pulse Oximetry 98 Intake/Output Intake/Output: Intake & Output 05/16/20 05/17/20 05/18/20 05/19/20 23:59 23:59 23:59 23:59 Intake Total 150 1112 1050 Output Total 0 Balance 150 1112 1050 Meds/Results Medications: Active Medications Generic Name Dose Route Start Last Admin Trade Name Freq PRN Reason Stop Dose Admin Acetaminophen 650 mg 05/18/20 19:07 Tylenol Tablet PO Q4H PRN Headache, pain 1-3 Albuterol 2 puff 05/17/20 13:52 05/19/20 01:33 Proventil Hfa INHALATION 2 puff QIDRT PRN Administration Shortness Of Breath Guaifenesin 600 mg 05/18/20 21:00 05/19/20 08:52 M
[2020-05-19] MEDS: ACETAMINOPHEN 325 MG TABLET 650 MG PO (14:07)
--- NOTE | 2020-05-19 17:17 | PM.DS ---
DS: Admitting Diagnosis Admitting Diagnosis Admitting Diagnosis: Other nonspecific abnormal finding of lung field DS: Discharge Diagnosis Discharge Diagnosis (1) Lung mass: Code(s): R91.8 - Other nonspecific abnormal finding of lung field Status: Acute Assessment and Plan: A right hilar mass 5.2 x 4.9 cm was seen on CTA 05/01/2020. He was seen in consultation by pulmonology and underwent a bronchoscopy on 05/18/2020. 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 He was informed of these results and was referred to oncologist Dr. Ramirez. He will follow-up with Dr. Ramirez in 1 week. (2) Recurrent pneumonia: Code(s): J18.9 - Pneumonia, unspecified organism Status: Acute Assessment and Plan: CXR showed right perihilar masslike opacity which could represent worsening pneumonia. He was recently treated for community-acquired pneumonia with a course of azithromycin with little improvement. This may be a postobstructive pneumonia. He remained afebrile and without leukocytosis. He will continue doxycycline and cefdinir as an outpatient for 5 days. Sputum culture was not performed as sample was inadequate. Preliminary blood cultures revealed NGTD and final cultures will be monitored. (3) COPD (chronic obstructive pulmonary disease): Code(s): J44.9 - Chronic obstructive pulmonary disease, unspecified Status: Acute Assessment and Plan: Chronic. He maintained adequate oxygenation on room air. He was given an albuterol inhaler. (4) History of tobacco abuse: Code(s): Z87.891 - Personal history of nicotine dependence Status: Acute Assessment and Plan: He smoked 1 pack per day for 20 years. He quit smoking on 05/01/2020. Congratulated patient on smoking cessation. Reinforced continued cessation. DS: Summary Hospital Course Reason for hospitalization: Shortness of breath Hospital Course: Date of admission: 05/18/2020 Date of discharge: 05/19/2020 Sourav Pool is a 50-year-old male with a history tobacco abuse and COPD who presented to the emergency department on 05/17/2020 with complaints of shortness of breath that had been ongoing for 2 weeks. He was previously evaluated at [place] emergency department on 05/01/2020 and was treated with a course of azithromycin but showed no improvement. at that time, a lung mass was seen and he was referred to Dr. Mendoza for follow-up. Upon presentation at this visit, AVSS, WBC 10.4, and CXR showing interval worsening of right perihilar masslike opacity. He was admitted to the hospitalist service and was seen in consultation by pulmonology. He underwent a bronchoscopy as noted above And was found to have small cell lung cancer. He was referred to Dr. Ramirez And was informed he could follow-up as outpatient. His symptoms improved and he was eager to return home. We discussed worrisome signs and symptoms for which she should return in the importance of attending his follow-up appointments. He was discharged home in hemodynamically stable condition on 05/19/2020. Time spent discussing smoking cessation with patient: 3 to 10 minutes Status at Discharge Functional status at discharge: independent ambulation Time Spent with Patient Time attestation: Total time spent providing and/or coordinating discharge services: 45 minutes Time spent: Greater than 30 minutes Exam Narrative: Exam Narrative: Mr. Pool is a well-nourished 49-year-old male who is lying supine in bed. He appears comfortable and is in no acute distress. HR 91, BP 115/78, R 20, T 96.8?, 95% on room air Neuro: awake, alert and oriented x4, speech clear, no focal neuro deficits noted HEENMT: normocephalic, atraumatic, EOMI, sclerae anicteric, moist oral mucosa, tongue midline, nares patent, no sinus tenderness Neck: supple, no lymphadenopathy Respiratory: diminished breath sounds without wheezing or crackles, normal respiratory effort Ca
== END 2020-05-19 18:15 | disposition home or self-care (01) | DRG 136 ==
LOC: ANHED 13:14 → ANH3MEDSUR 14:54 → ANH3MED 15:01
PROVIDERS: Internal Medicine Critical Care Medicine; Physician Assistant; Admitting Provider Family Medicine; Emergency Provider General Practice; Visit Provider Family Medicine
PROC: 0BJ08ZZ Inspection of Tracheobronchial Tree, Via Natural or Artificial Opening Endoscopic (ICD-10-PCS; CPT 31622; principal; 2020-05-18 12:00)
DX: C34.91 Malignant neoplasm of unspecified part of right bronchus or lung (principal); J18.9 Pneumonia, unspecified organism; J44.0 Chronic obstructive pulmonary disease with (acute) lower respiratory infection; E87.1 Hypo-osmolality and hyponatremia; D64.9 Anemia, unspecified; Z87.891 Personal history of nicotine dependence
CPT/HCPCS: 36415; 36600; 71046; 80048; 80053; 80076; 82375; 82805; 83050; 84484; 85025; 85610; 85730; 87040; 87070; 87205; 88104; 88108; 88160; 88305; 88342; 93005; 94640; 96361; 96365; 96375; 99285; A9270; G0378; G0379; J0131; J0330; J0696; J2270; J2370; J2704; J7120

== ENCOUNTER 2020-05-25 12:35 | Outpatient (CLI) | payer MEDICAID, SELFPAY ==
[2020-05-25 13:06] LABS: Alanine Aminotransferase 40 U/L (4-50); Alkaline Phosphatase 122 U/L (38-126); Anion Gap 9 mmol/L (8-16); Aspartate Amino Transferase 262 U/L (17-59); Bilirubin,Total 0.3 mg/dL (0.2-1.3); Blood Urea Nitrogen 18 mg/dL (9-20); Calcium 9.5 mg/dL (8.4-10.2); Carbon Dioxide 27 mmol/L (22-30); Chloride 98 mmol/L (98-107); Estimated Glomerular Filt Rate > 60; Glucose 100 mg/dL (75-110); Potassium 4.8 mmol/L (3.4-5.0); Sodium 134 mmol/L (137-145)
== END 2020-05-25 12:36 | disposition home or self-care (01) ==
PROVIDERS: Visit Provider Physician Assistant
DX: R74.0 Nonspecific elevation of levels of transaminase and lactic acid dehydrogenase [LDH] (principal); R91.8 Other nonspecific abnormal finding of lung field
CPT/HCPCS: 36415; 80053

== ENCOUNTER 2020-05-28 08:28 | Inpatient (IN) | payer MEDICAID, SELFPAY ==
[2020-05-28] VITALS (10 sets, daily range): BP systolic 130–156; BP diastolic 79–101; PULSE 91–101; RESP 18–20; TEMP 36.6–37.4; O2SAT 92–97
--- NOTE | ~2020-05-28 | US_ITS ---
EXAMINATION: US abdomen complete DATE: 05/29/2020 08:24 INDICATION: Abnormal liver function tests. TECHNIQUE: Multiple grayscale and Doppler ultrasound images of the abdomen were obtained. COMPARISON: Chest CT 05/01/2020 FINDINGS: The visualized portions of the head, body, and tail of the pancreas are normal. Abdominal a ness is normal in caliber. Inferior vena cava is normal. There is a 5 mm cyst in the liver. There is a 19 mm isoechoic mass in the liver. No liver surface nodularity. The gallbladder is normal in size. No gallstones or gallbladder wall thickening. There was no sonographic Richter sign. The kidneys are n ormal in size. There are cysts in the kidneys measuring up to 1.1 cm on the left. The spleen is mamadou l in size. There is a right pleural effusion. IMPRESSION: 1. 19 mm isoechoic liver mass suspicious for metastatic disease. 2. Right pleural effusion. Reviewed, dictated and finalized at location A.
--- NOTE | ~2020-05-28 | XR_ITS ---
EXAMINATION: XR chest 2V DATE: 05/28/2020 09:04 INDICATION: Shortness of breath. TECHNIQUE: Frontal and lateral views of the chest were obtained. COMPARISON: Chest 2 views 05/17/2020, chest CT 05/01/2020 FINDINGS: There are extensive airspace opacities in right upper lobe with a perihilar predominance. T here is a small right pleural effusion. No pneumothorax. Right hilar and mediastinal lymphadenopathy are noted. The heart size is normal. IMPRESSION: 1. Worsened extensive right upper lobe airspace opacities, consistent with pneumonia. 2. Small pleural effusions. 3. Right hilar and mediastinal lymphadenopathy, consistent with metastatic disease. Reviewed, dictated and finalized at location A. IMPRESSION: 1. Worsened extensive right upper lobe airspace opacities, consistent with pneu monia. 2. Small pleural effusions. 3. Right hilar and mediastinal lymphadenopathy, consistent with metastatic dise ase.
--- NOTE | ~2020-05-28 | CT_ITS ---
EXAMINATION: CT brain wo con DATE: 05/28/2020 09:08 INDICATION: Weakness. Gait instability. TECHNIQUE: Computed tomography (CT) of the head was performed without intravenous contrast. The mA wa s adjusted according to patient size. Iterative reconstruction technique was employed. The dose-lengt h product was 605.33 mGy-cm. COMPARISON: Head CT 05/01/2020 FINDINGS: There is no intracranial hemorrhage, acute infarction, or abnormal intracranial mass lesion . The ventricles are normal in size. The orbits are normal. There is mild mucosal thickening in the e thmoid sinuses. There is a trace right mastoid effusion. IMPRESSION: 1. Normal brain. Reviewed, dictated and finalized at location A. IMPRESSION: 1. Normal brain.
--- NOTE | ~2020-05-28 | MR_ITS ---
EXAMINATION: MR brain/brain stem wo/w con DATE: 05/30/2020 10:37 INDICATION: Small cell lung cancer. Headache. TECHNIQUE: Magnetic resonance imaging (MRI) of the brain and brainstem was performed without and with 17 mL MultiHance intravenous contrast. Sequences included sagittal and axial T1-weighted FSE, axial diffusion-weighted FS EPI, axial T2*-weighted GRE, axial T2-weighted FLAIR Propeller, and axial T2-we ighted Propeller. Postcontrast sequences included axial, sagittal, and coronal T1-weighted FSE. Appar ent diffusion coefficient (ADC) maps were created. COMPARISON: Head CT 05/28/2020 FINDINGS: There is no intracranial hemorrhage, acute infarction, or abnormal intracranial mass lesion . There is a developmental venous anomaly in left parietal lobe. The ventricles are normal in size. T he orbits are normal. The paranasal sinuses are clear. There is a trace mastoid effusion. IMPRESSION: 1. Normal brain. Reviewed, dictated and finalized at location A. IMPRESSION: 1. Normal brain.
--- NOTE | ~2020-05-28 | CT_ITS ---
EXAMINATION: CTA chest PE protocol DATE: 05/31/2020 18:20 INDICATION: Tachypnea, tachycardia and elevated d-dimer. TECHNIQUE: Computed tomography (CT) pulmonary angiogram of the chest was performed with 100 mL Omnipa que-350 intravenous contrast. Additional 3D reconstructions utilizing coronal maximum intensity proje ction (MIP) were performed. Automated exposure control and iterative reconstruction technique were em ployed. The dose-length product was 419.26 mGy-cm. COMPARISON: None FINDINGS: Good contrast opacification of the pulmonary arteries. There is moderate streak artifact from dense c ontrast in the superior vena cava and multiple collateral vessels in the mediastinum. Moderate to sev ere scattered respiratory motion. Together this significantly decreases sensitivity in the smaller se gmental and subsegmental pulmonary arteries particularly in the left lung. No central pulmonary embol i through the lobar pulmonary arteries. Large mass in the anterior segment of the right upper lobe wh ich invades the mediastinum. This results in marked narrowing of the superior vena cava with the inje cted contrast from the left upper extremity extending through multiple mediastinal and paraspinal col laterals. There is occlusion of the right upper lobe bronchus with mucous plugging in the more periph eral right upper lobar bronchi and significant narrowing of the bronchus intermedius and right lower lobar bronchus. The right middle lobe bronchus is also occluded with consolidation throughout the rig ht middle lobe. There is significant narrowing of the pulmonary pulmonary arteries to the right middl e and upper lobes and no evident contrast opacification of the draining pulmonary veins. There is sig nificantly decreased parenchymal enhancement at the right middle lobe when compared with the enhancem ent to the atelectatic basilar segments of the right lower lobe. No central pulmonary arterial fillin g defects to specifically suggest pulmonary embolism. Moderate emphysema. Patchy airspace disease thr oughout the noncollapsed portions of the right lung which could represent atelectasis, pulmonary nicki a or postobstructive pneumonia. Calcified nodules in the right lung along with slight mediastinal lym ph nodes consistent with old granulomatous disease. Small right and tiny left pleural effusions. Ther e is leftward shift of the normal sized heart and mediastinum. Small pericardial effusion. Partially visualized bilateral low-attenuation renal cysts the largest on the left measuring at least 1.3 cm. M ild thoracic spondylosis. No suspicious lytic or blastic bone lesions. IMPRESSION: 1. No definite pulmonary embolism. Sensitivity decreased in the subsegmental and essentially nondiagn ostic and many of the subsegmental pulmonary arteries due to moderate to severe respiratory motion ar tifact. 2. Large right upper lobe mass consistent with known history of primary bronchogenic carcinoma with b oth direct invasion of the mediastinum as well as confluent mediastinal lymphadenopathy consistent wi th metastatic disease. This results in occlusion of the right upper and middle lobar bronchi as well as marked narrowing of the superior vena cava and of the pulmonary arteries to the right upper lobe a nd collapsed right middle lobe. 3. Airspace disease in the noncollapsed portions of the right upper and lower lobes which could repre sent atelectasis, pulmonary edema or postobstructive pneumonia. 4. Moderate emphysema. 5. Small right and tiny left pleural effusions. 6. Small pericardial effusion. Reviewed, dictated and finalized at location A. IMPRESSION: 1. No definite pulmonary embolism. Sensitivity decreased in the subsegmental an d essentially nondiagnostic and many of the subsegmental pulmonary arteries due
--- NOTE | 2020-05-28 08:46 | ECG_ITS ---
Measurements Intervals [place] Rate: 100 P: 54 PA: 145 QRS: 10 QRSD: 101 T: 36 QT: 326 QTc: 421 Interpretive Statements SINUS TACHYCARDIA INCOMPLETE RIGHT BUNDLE BRANCH BLOCK DELAYED PRECORDIAL R/S TRANSITION BASELINE WANDER- III, AVR, AVL, AVF BORDERLINE ECG Electronically Signed On 05-28-2020 9:06:30 CDT by Ry Paulino D.O.
[2020-05-28 09:08] LABS: Basophils Absolute Auto 0.1 K/mm3 (0.0-0.1); Eosinophils Absolute Auto 0.1 K/mm3 (0-0.3); Eosinophils Percent Auto 1.4 % (0-4.4); Hematocrit 32.9 % (42.0-52.0); Hemoglobin 10.8 g/dL (14.0-18.0); Immature Granulocyte Absolute 0.99 K/mm3 (0.00-0.031); Immature Granulocyte Percent A 11.3 % (0-0.5); Lymphocytes Absolute Auto 2.33 K/mm3 (0.9-3.2); Lymphocytes Percent Auto 26.6 % (18.3-44.2); Mean Corpuscular HGB Conc 32.8 g/dl (32-36); Mean Corpuscular Hemoglobin 28.5 pg (26-34); Mean Corpuscular Volume 86.8 fl (80-100); Mean Platelet Volume 10.3 fl (7.4-10.4); Monocytes Absolute Auto 0.5 K/mm3 (0.1-0.6); Monocytes Percent Auto 5.1 % (2.6-8.5); Neutrophils Absolute Auto 4.8 K/mm3 (1.3-6.7); Neutrophils Percent Auto 54.6 % (45.5-73.1); Nucleated Red Blood Cells Perc 0.5 % (0.0-0.2); Platelet Count Result 155 k/mm3 (150-375); Red Blood Count 3.79 M/mm3 (4.6-6.20); White Blood Count 8.8 K/mm3 (4.5-10.0)
[2020-05-28 09:22] LABS: Anion Gap 8 mmol/L (8-16); Blood Urea Nitrogen 18 mg/dL (9-20); Calcium 9.7 mg/dL (8.4-10.2); Carbon Dioxide 27 mmol/L (22-30); Chloride 99 mmol/L (98-107); Estimated CRCL calculation 91 ml/min; Estimated Glomerular Filt Rate > 60; Glucose 104 mg/dL (75-110); Potassium 4.3 mmol/L (3.4-5.0); Sodium 134 mmol/L (137-145)
--- NOTE | 2020-05-28 09:39 | ED.GENADULT ---
HPI - General Adult General Chief complaint: Weakness Stated complaint: weakness, fall today Source: patient History of Present Illness HPI narrative: Patient is a 50 y/o male complaining of feeling weak and passing out this morning around 6:30 AM. He states that he passed out for a few seconds. He states that he hit his right hand on the bathroom counter when he fell down. He still feels weak. He also has cough, SOB, generalized body. He denies any fever. Of note, he was recently diagnosed with lung cancer, but has not seen an oncologist yet. Related Data Home Medications Medication Instructions Recorded Confirmed umeclidinium-vilanterol [Anoro 1 inh INHALATION HS 05/28/20 Ellipta] Allergies Allergy/AdvReac Type Severity Reaction Status Date / Time No Known Allergies Allergy Mild Verified 05/28/20 08:42 Review of Systems Constitutional: Constitutional: Denies chills, Reports excessive sweating, Denies fever(s), Denies headache(s) and Reports weakness Eyes: Eyes: Denies blurry vision ENT: Denies headache(s) and Denies neck pain Cardiovascular: Cardiovascular: Reports chest pain and Reports dyspnea Respiratory: Respiratory: Reports cough and Reports dyspnea Gastrointestinal: Gastrointestinal: Denies abdominal pain, Denies diarrhea, Denies nausea and Denies vomiting Genitourinary: Genitourinary: Denies hematuria and Denies dysuria Musculoskeletal: Musculoskeletal: Denies back pain and Denies neck pain Neurologic: Reports as per HPI, Reports dizziness, Denies headache(s) and Denies weakness PMFSH Past Medical History Medical History COPD (chronic obstructive pulmonary disease) History of tobacco abuse stopped May 01, 2020 Lung mass Patient denies medical problems Family History Family History Mother Hypertension Cerebrovascular accident Diabetes mellitus Son Shortness of Breath due to welding Social History Social History Social History: the patient stated that he has 2 children and he lives with his girlfriend. He is a scott. Patient tells me that he quit smoking May 06, 2020. He occasionally uses marijuana. his 2 grown children. His father in law is the durable power business attorney for healthcare. Patient desires to be a full code. Smoking packs per day: 1 Smoking cigarettes per day: 20.0 Years smoked: 20 Smoking pack-years: 20.00 Smoking status: Former smoker Tobacco type: cigarettes Alcohol intake: current Drinks per week: 1 Substance use: current Substance use type: marijuana Other substance usage details: occasional Last use: 05/06/20 Additional living arrangements comments: girlfriend, and others Additional occupation/education comments: [employer], works really hard, has not been able to work since May 01 Gender identity (if verbalized by the patient): Male Spiritual care concerns: No Exam Const: General: no acute distress and well developed Orientation/consciousness: oriented to person, oriented to place, oriented to time and patient oriented x3 HENMT: Head: normocephalic Ears: external ears normal General nose exam: Normal external nose present Eyes: General: appearance normal, both eyes and all related structures Conjunctivae: conjunctivae normal Neck: Neck: normal visual inspection and full ROM Chest: Chest palpation & inspection: normal inspection of the chest and no tenderness Resp: Effort & Inspection: normal respiratory effort Auscultation: clear to auscultation bilaterally Cardio: Rate: regular rate Rhythm: regular rhythm GI: GI Palp: No abdominal tenderness and Yes Soft to palpation Skin: General skin exam: normal color and turgor normal Trauma: abrasion (right wrist) Neuro: General: oriented to person, oriented to place, oriented to time and patient
[2020-05-28] MEDS: TETANUS,DIPHTHERIA,AC PERTUSSIS ADULT (0.5 ML) BOOSTRIX IM (10:00)
[2020-05-28] MEDS: SODIUM CHLORIDE 0.9% IV 1,000 ML 999 ML IV CONT (11:17)
[2020-05-28 11:44] LABS: Troponin I 0.013 ng/mL (0.000-0.034)
[2020-05-28 14:28] LABS: Troponin I 0.012 ng/mL (0.000-0.034)
--- NOTE | 2020-05-28 14:37 | PC.NURSE ---
This patient, Sourav Pool, was admitted to [facility] Surg Room 315-01. Patient/family oriented to hospital policies and general routines including ID bracelet, bed and alarms, visiting hours, pain management, procedures, bathroom and other care routines, personal items, smoking policy, room service/diet, and visiting hours. Valuables list has been completed. Information on how to activate the Rapid Response Team has been discussed. Patient/Family are encouraged to report perceived risks to care and to ask questions if they do not understand what they are told or what they should do. PT ARRIVED AT 14:10
--- NOTE | 2020-05-28 16:12 | PM.IMHP ---
H&P: HPI History of Present Illness Date/Time: 05/28/20 16:12 Chief complaint: syncope/pneumonia Narrative: Sourav Pool is a 50 year old male Who was admitted here on 05/18/2020 with right lung mass and dyspnea. The patient has been treated with antibiotics several times. He he me ER on 05/01/2020 was diagnosed with pneumonia and was given antibiotics. He has having a poor appetite. Patient had been a smoker any had a cough. Patient had been placed on a Zithromax. The patient's CT scan was showing right perihilar masslike opacities which could reflect worsening pneumonia are primary bronchogenic carcinoma. The patient did have a bronchoscopy was seen by preparation room worker here during that admission. His pathology was positive for small cell carcinoma. The patient stated that he is scheduled to see Dr. butler out in 2 days but felt that he could not make it to that appointment. The patient states that he short of breath with minimal exertion. He is also complaining of severe pain all over. He said he hurts from head to toe. He also had elevated liver enzymes which are exposed to be recheck this week. The patient uses an inhaler for his COPD. The patient is very hard of hearing and needs to read lips. The patient stated he is just so weak and he has not been eating or drinking very well. He has not been able to work for a very long time due to the shortness of breath. Patient was diagnosed with a right hilar mass 5.2 x 4.9 cm. Is felt that the patient had postobstructive pneumonia and had finished a course of azithromycin. Patient quit smoking on 05/01/2020 after smoking a pack a cigarettes a day for [address] was performed today which shows normal brain. Chest x-ray from today shows worsened extensive right upper lobe airspace opacities, consistent with pneumonia. Small pleural effusions. Right hilar and mediastinal lymphadenopathy, consistent with metastatic disease. The patient was given a Zithromax and Rocephin in the emergency room. That has been discontinued. The patient was complaining of discomfort from had patella given Dilaudid he was able to rest well without difficulty. S spent approximately 35 minutes the patient date of service disease 16 20 Review of Systems Review of Systems: All systems reviewed & are unremarkable except as noted in HPI and below Constitutional: Constitutional: Reports as per HPI and Reports no additional constitutional complaints Eyes: Eyes: Reports as per HPI and Reports no additional eye complaints ENT: Reports system reviewed and no additional complaints, except as documented and Reports Normal hearing present Cardiovascular: Cardiovascular: Reports no additional cardiovascular complaints Respiratory: Respiratory: Reports no additional respiratory complaints and Reports no additional respiratory complaints Gastrointestinal: Gastrointestinal: Reports as per HPI and Reports no additional gastrointestinal complaints Musculoskeletal: Musculoskeletal: Reports no additional musculoskeletal complaints Integumentary/Breasts: Skin/Breast: Reports system reviewed and no additional complaints, except as docu and Reports as per HPI Neurologic: Reports system reviewed and no additional complaints, except as documented, Reports as per HPI and Reports Normal hearing present Psychiatric: Psychiatric: Reports no additional psychiatric complaints and Reports as per HPI Endocrine: Endocrine: Reports no additional endocrine complaints Hematologic/Lymphatic: Hematologic/Lymphatic: Reports no additional hematologic/lymphatic complaints Allergic/Immunologic: Allergic/Immunologic: Reports no additional allergic/immunologic complaints [facility] Past Medical History Medical History (Updated 05/28/20 @ 16:25 by Monica Agosto NP) COPD (chronic obstructive pulmonary disease) Device, implant, or graft complication left antecubital plasma port History of tobacco abuse stopped May 01, 2020 Lung mass
[2020-05-28 17:48] LABS: Troponin I < 0.012 ng/mL (0.000-0.034)
[2020-05-29] VITALS (13 sets, daily range): BP systolic 141–150; BP diastolic 74–88; PULSE 102–121; RESP 18–22; TEMP 36.8–37.1; O2SAT 91–95
[2020-05-29 06:53] LABS: Basophils Absolute Auto 0.1 K/mm3 (0.0-0.1); Basophils Percent Auto 0.9 % (0.2-1.2); Eosinophils Absolute Auto 0.1 K/mm3 (0-0.3); Eosinophils Percent Auto 1.3 % (0-4.4); Hematocrit 30.5 % (42.0-52.0); Hemoglobin 10.2 g/dL (14.0-18.0); Immature Granulocyte Absolute 0.83 K/mm3 (0.00-0.031); Immature Granulocyte Percent A 10.5 % (0-0.5); Lymphocytes Absolute Auto 1.63 K/mm3 (0.9-3.2); Lymphocytes Percent Auto 20.6 % (18.3-44.2); Mean Corpuscular HGB Conc 33.4 g/dl (32-36); Mean Corpuscular Hemoglobin 28.7 pg (26-34); Mean Corpuscular Volume 85.7 fl (80-100); Monocytes Absolute Auto 0.6 K/mm3 (0.1-0.6); Monocytes Percent Auto 7.1 % (2.6-8.5); Neutrophils Absolute Auto 4.7 K/mm3 (1.3-6.7); Neutrophils Percent Auto 59.6 % (45.5-73.1); Nucleated Red Blood Cells Absolute Auto 0.1 K/mm3 (0.0-0.012); Nucleated Red Blood Cells Perc 0.8 % (0.0-0.2); Platelet Count Result 140 k/mm3 (150-375); Red Blood Count 3.56 M/mm3 (4.6-6.20); White Blood Count 7.9 K/mm3 (4.5-10.0)
[2020-05-29 07:06] LABS: Alanine Aminotransferase 39 U/L (4-50); Albumin Level 3.8 g/dL (3.5-5.1); Alkaline Phosphatase 136 U/L (38-126); Anion Gap 11 mmol/L (8-16); Aspartate Amino Transferase 286 U/L (17-59); Bilirubin,Total 0.8 mg/dL (0.2-1.3); Blood Urea Nitrogen 14 mg/dL (9-20); Calcium 9.2 mg/dL (8.4-10.2); Carbon Dioxide 23 mmol/L (22-30); Chloride 96 mmol/L (98-107); Estimated CRCL calculation 115 ml/min; Estimated Glomerular Filt Rate > 60; Glucose 107 mg/dL (75-110); Potassium 4.1 mmol/L (3.4-5.0); Sodium 130 mmol/L (137-145)
[2020-05-29] MEDS: ALBUTEROL SULFATE (*SP) AEROSOL 1 PUFF 2 PUFF INHALATION ×2 (08:32→20:57)
--- NOTE | 2020-05-29 10:03 | PCRCNOTE ---
HOME O2 EVAL COMPLETE, NO REQUIREMENTS
--- NOTE | 2020-05-29 10:50 | PM.IMPN ---
Progress Note: A&P Assessment and Plan (1) Small cell lung cancer: Code(s): C34.90 - Malignant neoplasm of unspecified part of unspecified bronchus or lung <Nia Snowden PA-C - Last Filed: 05/29/20 14:43> Status: Acute <Nia CohenENMA fritzC - Last Filed: 05/29/20 14:43> Assessment and Plan: A right hilar mass 5.2 x 4.9 cm was seen on CTA 05/01/2020. He was seen in consultation by pulmonology and underwent a bronchoscopy on 05/18/2020 during his last admission from 05/17-05/19/20. 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 He was informed of these results and was referred to oncologist Dr. Ramirez for an appointment on 05/30/20. He has been having chest aching and diffuse body pain which is felt to be secondary to cancer. Oncology and Pulmonology have been consulted and recommendations are appreciated. He had been treated with antibiotics for post-obstructive pneumonia, however will hold off on antibiotics at this time until further evaluation from oncology and pulmonology. Continue analgesics as needed. <Nia Snowden PA-C - Last Filed: 05/29/20 14:43> (2) Syncope: Qualifiers: Syncope type: unspecified Qualified Code(s): R55 - Syncope and collapse <Nia CarterENMA TrinidadC - Last Filed: 05/29/20 14:43> Code(s): R55 - Syncope and collapse <ENMA GillC - Last Filed: 05/29/20 14:43> Status: Acute <Nia JBlessing NoelENMA fritzC - Last Filed: 05/29/20 14:43> Assessment and Plan: Patient reports he fell down after getting out of bed when attempting to walk to the bathroom. He felt dizzy upon standing. He did not lose consciousness during the episode. He has had poor p.o. intake and likely became dehydrated. Will continue gentle IV fluids with caution to avoid fluid overload. Continue to monitor closely. <Nia Snowden PA-C - Last Filed: 05/29/20 14:43> (3) COPD (chronic obstructive pulmonary disease): Qualifiers: COPD type: unspecified COPD Qualified Code(s): J44.9 - Chronic obstructive pulmonary disease, unspecified <Nia CohenZEE fritz-C - Last Filed: 05/29/20 14:43> Code(s): J44.9 - Chronic obstructive pulmonary disease, unspecified <Nia Cohenlam PA-C - Last Filed: 05/29/20 14:43> Status: Acute <Nia Cohenlam PA-C - Last Filed: 05/29/20 14:43> Assessment and Plan: Chronic. He has been maintaining adequate oxygenation on room air. He was recently started on Anoro ellipta and albuterol. Anoro Ellipta is non-formulary and will transition to Symbicort and Spiriva during stay Continue prn albuterol Supplemental O2 as needed with goal saturation 90% or above. <iNa MachadoZEE Trinidad-C - Last Filed: 05/29/20 14:43> (4) Elevated LFTs: Code(s): R79.89 - Other specified abnormal findings of blood chemistry <Nia MachadoBlessing Noellam PA-C - Last Filed: 05/29/20 14:43> Status: Acute <Nia MachadoBlessing Noellam PA-C - Last Filed: 05/29/20 14:43> Assessment and Plan: LFTs were elevated during his previous hospital stay and he was recommended to obtain repeat labs in 1 week. Upon readmission, levels remained elevated. Abdominal ultrasound performed today showed a 19 mm liver mass suspicious for metastatic disease. Appreciate Dr. Ramirez's evaluation <Nia MachadoENMA TrinidadC - Last Filed: 05/29/20 14:43> (5) History of tobacco abuse: Code(s): Z87.891 - Personal history of nicotine dependence <Nia CarterZEE Trinidad-C - Last Filed: 05/29/20 14:43> Status: Acute <Nia MachadoBlessing NoelZEE fritz-C - Last Filed: 05/29/20 14:43> Assessment and Plan: He smoked 1 pack per day for 20 years. He quit smoking on 05/01/2020. Congratulated patient on smoking cessation and reinforced continued cessation. He declines a nicotine patch at this time. <Nia Snowden PA-C - Last Filed: 05/29/20
[2020-05-29] MEDS: SODIUM CHLORIDE 0.9% IV 1,000 ML 75 ML IV CONT (14:49)
--- NOTE | 2020-05-29 17:50 | PDONCCN ---
HPI - Date of Consult Date/Time: 05/29/20 17:50 Requesting Physician: Nia Snowden PA-C Primary Care Provider: IN STORE REPRESENTATIVE PHYSICIAN - Consult Narrative Reason for consult: Extensive stage small-cell lung cancer Narrative: Sourav Pool is a 50 year old male This is a 50-year-old male who was admitted to the hospital in April, with diagnosis of pneumonia. He had bronchoscopy and biopsy of lung mass done on May 18, 2020 that came back positive for small cell lung cancer. He has been dealing with generalized weakness and fatigue. He has poor taste and complain of generalized pain. He came into the hospital with increasing shortness of breath weakness and cough. He denies any hemoptysis. He has occasional headaches. Abdominal ultrasound was done that showed 1.9 cm liver mass. His liver enzymes were found to be elevated. He has appointment with my office on May 30 but came into the ER due to above symptoms. Review of Systems - Review of Systems All systems reviewed & are unremarkable except as noted in HPI and bel - Neurologic Reports system reviewed and no additional complaints, except as documented, Denies headache(s), Denies weakness PMFSH Medical History: Medical History (Last Reviewed 05/29/20 @ 17:54 by Evan Ramirez MD) COPD (chronic obstructive pulmonary disease) Device, implant, or graft complication left antecubital plasma port History of tobacco abuse stopped May 01, 2020 Lung mass Patient denies medical problems Surgical History: Surgical History (Last Reviewed 05/29/20 @ 17:54 by Evan Ramirez MD) History of bronchoscopy with biopsy Family History: Family History (Last Reviewed 05/29/20 @ 17:54 by Evan Ramirez MD) Mother Hypertension Cerebrovascular accident Diabetes mellitus Son Shortness of Breath due to welding - Social History Social History: Social History (Last Reviewed 05/29/20 @ 17:54 by Evan Ramirez MD) Gender Identity: Gender identity (if verbalized by the patient): Male Alcohol Use: Alcohol intake: former Drinks per week: 1 Substance Use: Substance use: current Substance use type: marijuana Other substance usage details: occasional Last use: 05/06/20 Others: Spiritual care concerns: No Smoking Status: Smoking status: Former smoker Tobacco type: cigarettes Smoking Pack-years: Smoking packs per day: 1 Smoking cigarettes per day: 20.0 Years smoked: 20 Smoking pack-years: 20.00 Meds Home Medications Medication Instructions Recorded Confirmed Type albuterol sulfate [Proventil HFA] 2 puff INHALATION QID PRN 05/28/20 05/28/20 History umeclidinium-vilanterol [Anoro 1 inh INHALATION HS 05/28/20 05/28/20 History Ellipta] Allergies Allergy/AdvReac Type Severity Reaction Status Date / Time No Known Allergies Allergy Mild Verified 05/28/20 08:42 Results - Labs CBC & Chem 7: 05/29/20 06:22 05/29/20 06:22 Labs: Short CBC 05/29/20 Range/Units 06:22 WBC 7.9 (4.5-10.0) K/mm3 Hgb 10.2 L (14.0-18.0) g/dL Hct 30.5 L (42.0-52.0) % Plt Count 140 L (150-375) k/mm3 BMP 05/29/20 06:22 Sodium 130 L Potassium 4.1 Chloride 96 L Carbon Dioxide 23 BUN 14 Creatinine 0.70 Glucose 107 Calcium 9.2 Liver Function 05/29/20 Range/Units 06:22 Total Bilirubin 0.8 (0.2-1.3) mg/dL AST 286 H (17-59) U/L ALT 39 (4-50) U/L Alkaline Phosphatase 136 H (38-126) U/L Albumin 3.8 (3.5-5.1) g/dL Assessment and Plan - Additional Plan Extensive stage small-cell lung cancer. Patient had bronchoscopy and biopsy done on May 18, 2020 that came back positive for small cell lung cancer. He now came into the hospital with generalized weakness and pain. He has lost his appetite. He has poor taste. He was having intermittent headache and had syncopal episode. CT scan of the head
--- NOTE | 2020-05-29 19:37 | PM.CNPUL ---
Assessment and Plan Assessment and plan (1) Small cell carcinoma of lung: Code(s): C34.90 - Malignant neoplasm of unspecified part of unspecified bronchus or lung Status: Chronic History of Present Illness History of Present Illness Consult date: 06/22/20 Requesting physician: Monica Agosto NP Chief complaint: syncope/pneumonia Narrative: NEW: Sourav Pool is a 50 yo male who was here recently with a lung mass, bronchoscopy showed bronchogenic carcinoma, and he is waiting to start treatment as an outpatient. Review of Systems Review of Systems: All systems reviewed & are unremarkable except as noted in HPI and below PMFSH Past Medical History Medical History (Updated 06/10/20 @ 08:24 by Karrie Mendoza MD) Anemia of chronic disease Chronic obstructive pulmonary disease History of tobacco abuse He had smoked up to 1.5 packs of cigarettes per day for 20 years and quit 05/06/2020. Hyponatremia Small cell carcinoma of lung Initial diagnosis on 05/18/2020 biopsy. Chest CTA on 06/06/2020 showed a large right upper lobe mass with occlusion of the right upper lobe bronchus and stenosis of bronchus intermedius with mass effect on the superior vena cava and right-sided pulmonary arteries as well as the right side of the heart with airspace opacities consistent with postobstructive pneumonia as well as findings of a malignant moderate size right pleural effusion, chest and abdominal lymphadenopathy, and multiple liver masses consistent with metastatic cancer. Small cell lung cancer Thrombocytopenia Surgical History Surgical History History of bronchoscopy (~05/18/20) Right upper lobe --> small cell carcinoma. Family History Family History Mother Hypertension Cerebrovascular accident Diabetes mellitus Son Shortness of Breath due to welding Social History Social History Social History: The patient lives in a multi generational home in [place]. He has 2 grown children. 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 He smoked 1 pack of cigarettes per day for about 32 years and quit on May 06, 2020. He occasionally uses marijuana and drinks perhaps 1 alcoholic beverage a week. His father in law is his healthcare power associate attorney. He wishes to be a full code. Smoking packs per day: 1 Smoking cigarettes per day: 20.0 Years smoked: 32 Smoking pack-years: 32.00 Smoking status: Former smoker Tobacco type: cigarettes Second hand tobacco smoke exposure: No Smoking end date: 05/06/20 Alcohol intake: former Drinks per week: 1 Substance use type: marijuana Last use: 05/06/20 Gender identity (if verbalized by the patient): Male Sexual Orientation (if Verbalized by the Patient): Straight or Heterosexual Spiritual care concerns: No Meds Home Medications and Allergies Home Medications Medication Instructions Recorded Confirmed Type Anoro Ellipta 1 inh INHALATION HS 05/28/20 06/06/20 History albuterol sulfate [Proventil HFA] 2 puff INHALATION QID PRN 05/28/20 06/06/20 History hydrocodone-acetaminophen 1 - 2 tablet PO Q6H PRN #7 tablet 06/09/20 Rx Allergies Allergy/AdvReac Type Severity Reaction Status Date / Time No Known Allergies Allergy Mild Verified 06/07/20 14:19 Vital Signs Vital Signs - 24 hr 05/28/20 20:00 05/28/20 22:00 05/29/20 00:00 Temperature 37.4 C Pulse Rate 97 99 106 H Respiratory Rate 18 Blood Pressure 134/79 Pulse Oximetry 97 05/29/20 04:00 05/29/20 06:00 05/29/20 08:00 Temperature 37.1 C Pulse Rate 104 H 104 H 106 H Respiratory Rate 20 Blood Pressure 141/88 H Pulse Oximetry 92 05/29/20 08:33 05/29/20 09:20 05/29/20 09:25 Temperature Pulse Rate 104 H 121 H Respiratory Rate Blood Pressure Pulse Oximet
[2020-05-29 21:38] LABS: Iron 102 ug/dL (49-181)
[2020-05-29 21:47] LABS: Percent Iron Saturation 43 % (20-50)
[2020-05-29 23:25] LABS: Ferritin > 2000.00 ng/mL (17.9-464)
[2020-05-30] MEDS: SODIUM CHLORIDE 0.9% IV 1,000 ML 75 ML IV CONT ×2 (02:47→22:51)
[2020-05-30 06:00] VITALS: BP 146/78; PULSE 102; RESP 22; TEMP 36.5; O2SAT 92
[2020-05-30] MEDS: ALBUTEROL SULFATE (*SP) AEROSOL 1 PUFF 2 PUFF INHALATION (06:32)
[2020-05-30 06:33] VITALS: O2SAT 95
[2020-05-30 06:33] LABS: Hematocrit 30.8 % (42.0-52.0); Hemoglobin 10.1 g/dL (14.0-18.0); Mean Corpuscular HGB Conc 32.8 g/dl (32-36); Mean Corpuscular Hemoglobin 27.9 pg (26-34); Mean Corpuscular Volume 85.1 fl (80-100); Mean Platelet Volume 10.1 fl (7.4-10.4); Platelet Count Result 122 k/mm3 (150-375); Red Blood Count 3.62 M/mm3 (4.6-6.20); Red Cell Distribution Width 13.1 % (11.5-14.5); White Blood Count 7.8 K/mm3 (4.5-10.0)
[2020-05-30 06:49] LABS: Alanine Aminotransferase 46 U/L (4-50); Albumin Level 3.6 g/dL (3.5-5.1); Alkaline Phosphatase 129 U/L (38-126); Anion Gap 9 mmol/L (8-16); Aspartate Amino Transferase 310 U/L (17-59); Bilirubin,Total 0.7 mg/dL (0.2-1.3); Blood Urea Nitrogen 16 mg/dL (9-20); Carbon Dioxide 26 mmol/L (22-30); Chloride 95 mmol/L (98-107); Estimated CRCL calculation 115 ml/min; Estimated Glomerular Filt Rate > 60; Glucose 105 mg/dL (75-110); Potassium 4.4 mmol/L (3.4-5.0); Sodium 130 mmol/L (137-145)
[2020-05-30 07:25] LABS: Band Neutrophils Percent 6 % (0-6); Basophils Absolute Manual 0.07 K/mm3 (0.0-0.1); Basophils Percent Manual 1 % (0-1); Lymphocytes Absolute Manual 2.18 K/mm3 (1.1-4.5); Monocytes Absolute Manual 0.54 K/mm3 (0.1-0.90); Monocytes Percent Manual 7 % (3-9); Neutrophils Absolute Manual 4.99 K/mm3 (1.3-6.7); Neutrophils Percent Manual 58 % (46-73); Nucleated Red Blood Cells 3 %; Platelet Estimate Adequate (Adequate); Total Cells Counted 100
--- NOTE | 2020-05-30 09:24 | PM.IMPN ---
Progress Note: A&P Assessment and Plan (1) Small cell lung cancer: Code(s): C34.90 - Malignant neoplasm of unspecified part of unspecified bronchus or lung Status: Acute Assessment and Plan: A right hilar mass 5.2 x 4.9 cm was seen on CTA 05/01/2020. He was seen in consultation by pulmonology and underwent a bronchoscopy on 05/18/2020 during his last admission from 05/17-05/19/20. 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 He was informed of these results and was referred to oncologist Dr. Ramirez for an appointment on 05/30/20. He has been having chest aching and diffuse body pain which is felt to be secondary to cancer. RUQ US showed possible mets to liver. Brain MRI did not show mets. Oncology and Pulmonology have been consulted and recommendations are appreciated. He had been treated with antibiotics for post-obstructive pneumonia, however will hold off on antibiotics at this time until further evaluation from oncology and pulmonology. Continue analgesics as needed. General surgery has been consulted for port placement to begin palliative chemo per Dr. Ramirez. (2) Syncope: Qualifiers: Syncope type: unspecified Qualified Code(s): R55 - Syncope and collapse Code(s): R55 - Syncope and collapse Status: Acute Assessment and Plan: Patient reports he fell down after getting out of bed when attempting to walk to the bathroom. He felt dizzy upon standing. He did not lose consciousness during the episode. He had poor p.o. intake and likely became dehydrated. Will continue gentle IV fluids with caution to avoid fluid overload. Continue to monitor closely. (3) COPD (chronic obstructive pulmonary disease): Qualifiers: COPD type: unspecified COPD Qualified Code(s): J44.9 - Chronic obstructive pulmonary disease, unspecified Code(s): J44.9 - Chronic obstructive pulmonary disease, unspecified Status: Acute Assessment and Plan: Chronic. He has been maintaining adequate oxygenation on room air. He was recently started on Anoro ellipta and albuterol at home. Patient believes nebulizers cause him to feel sweaty, shaky, and overall unwell. Anoro Ellipta is non-formulary and will transition to Symbicort and Spiriva during stay. Increase Symbicort dose per Dr. Ocampo. Discontinue nebulized breathing treatments Supplemental O2 as needed with goal saturation 90% or above. (4) Liver mass: Code(s): R16.0 - Hepatomegaly, not elsewhere classified Status: Acute Assessment and Plan: LFTs were elevated during his previous hospital stay and he was recommended to obtain repeat labs in 1 week. Upon readmission, levels remained elevated. Abdominal ultrasound performed today showed a 19 mm liver mass suspicious for metastatic disease. Appreciate Dr. Ramirez's evaluation Plan for outpatient PET scan. (5) History of tobacco abuse: Code(s): Z87.891 - Personal history of nicotine dependence Status: Acute Assessment and Plan: He smoked 1 pack per day for 20 years. He quit smoking on 05/01/2020. He declined a nicotine patch (6) Normocytic anemia: Code(s): D64.9 - Anemia, unspecified Status: Acute Assessment and Plan: H&H stable. No evidence of active bleeding. Iron panel showed low TIBC with adequate iron stores. B12 and Folate wnl. Monitor H&H closely and transfuse prn. Subjective Date/time seen: 05/30/20 09:24 Interval history: Date of service: 06/01/2020 He continues to tell me that he is hurting all over. His biggest complaints are his left anterior chest, his entire back, and his joints, especially his knees. At this time, his pain is 4/10. He has no abdominal pain or right upper quadrant pain. He has been very sweaty but denies any fevers or chills. He thinks his breathing treatments cause him to become diaphoretic. He denies headache or neck pain. He has
[2020-05-30 14:00] VITALS: BP 135/75; PULSE 102; RESP 20; TEMP 36.8; O2SAT 90
--- NOTE | 2020-05-30 14:01 | PM.PNPUL ---
Progress Note: A&P Assessment and Plan (1) Small cell lung cancer: Code(s): C34.90 - Malignant neoplasm of unspecified part of unspecified bronchus or lung Status: Acute (2) COPD (chronic obstructive pulmonary disease): Qualifiers: COPD type: unspecified COPD Qualified Code(s): J44.9 - Chronic obstructive pulmonary disease, unspecified Code(s): J44.9 - Chronic obstructive pulmonary disease, unspecified Status: Acute Assessment and Plan: Will start Symbicort 160/4.5 mcg 2 puffs bid continue tiotropium 18 mcg 1 puff d/c nebulized medications as they are causing side effects. Subjective Date/time seen: 05/30/20 14:01 Interval history: 50 y/o male with small cell Lung CA, possibly metastic, doing poorly. Still feels weak. Says all nebulized medications cause chills sweats and feeling unwell. Review of Systems Review of Systems: All systems reviewed & are unremarkable except as noted in HPI and below Exam Const: General: no acute distress Neck: Neck: supple and no JVD Resp: Auscultation: wheezes and diminished lung sounds Cardio: Rate: regular rate Rhythm: regular rhythm GI: Inspection: distended Skin: General skin exam: normal color Extrem: General: normal to inspection Objective Data Vital Signs Vital Signs: Vital Signs - 24 hr 05/29/20 20:00 05/29/20 20:58 05/29/20 22:00 Temperature 36.8 C Pulse Rate 108 H Respiratory Rate 22 H Blood Pressure 150/81 H Pulse Oximetry 94 95 92 05/30/20 06:00 05/30/20 06:33 Temperature 36.5 C Pulse Rate 102 H Respiratory Rate 22 H Blood Pressure 146/78 H Pulse Oximetry 92 95 Intake/Output Intake/Output: Intake & Output 05/27/20 05/28/20 05/29/20 05/30/20 23:59 23:59 23:59 23:59 Intake Total 2039 1309 1959 Balance 2039 1309 1959 Meds/Results Medications: Active Medications Generic Name Dose Route Start Last Admin Trade Name Freq PRN Reason Stop Dose Admin Hydrocodone Bitart/Acetaminophen 1 tab 05/28/20 16:07 05/29/20 06:51 [place] 5-325 Mg PO 1 tab Q4H PRN Administration Pain Rated 4-6 Budesonide/Formoterol Fumarate 2 puff 05/30/20 20:00 Symbicort 160-4.5 Mcg (*Sp) Inhaler INHALATION Q12HRT MARVIN Hydromorphone HCl 0.5 mg 05/28/20 16:08 05/30/20 02:44 Dilaudid Inj IV PUSH 0.5 mg Q3H PRN Administration Pain Rated 7-10 Sodium Chloride 1,000 mls @ 75 mls/hr 05/29/20 14:30 05/30/20 02:47 Normal Saline Iv IV CONT 75 mls/hr .[id number] MARVIN Administration Non-Formulary Medication 1 inhalation 05/28/20 21:00 05/30/20 08:25 Umeclidinium-Vilanterol INHALATION 06/27/20 21:01 Not Given HS MARVIN Tiotropium [place] 1 cap 05/29/20 11:10 05/30/20 09:21 Spiriva INHALATION 1 cap QAM MARVIN Administration Radiology Results: ITS Impressions Chest X-Ray 05/28/20 09:06 IMPRESSION: 1. Worsened extensive right upper lobe airspace opacities, consistent with pneumonia. 2. Small pleural effusions. 3. Right hilar and mediastinal lymphadenopathy, consistent with metastatic disease. Head CT 05/28/20 09:09 IMPRESSION: 1. Normal brain. Abdomen Ultrasound 05/29/20 08:42 IMPRESSION: 1. 19 mm isoechoic liver mass suspicious for metastatic disease. 2. Right pleural effusion. Brain MRI 05/30/20 10:39 IMPRESSION: 1. Normal brain. Labs Labs: Laboratory Results - last 24 hr 05/29/20 05/29/20 05/30/20 20:43 20:43 06:05 WBC 7.8 RBC 3.62 L Hgb 10.1 L Hct 30.8 L MCV 85.1 MCH 27.9 MCHC 32.8 RDW 13.1 Plt Count 122 L MPV 10.1 Immature Gran % (Auto) Not Reportable Neut % (Auto) Not Reportable Lymph % (Auto) Not Reportable [place] % (Auto) Not Reportable Eos % (Auto) Not Reportable Baso % (Auto) Not Reportable Lymph # (Auto) Not Reportable [place] # (Auto) Not Reportable Eos # (Auto) Not Reportable Baso # (Auto) Not Reportable Abs Immat Gran (a
--- NOTE | 2020-05-30 17:00 | PM.CNGS ---
Assessment and Plan Assessment and plan (1) Small cell lung cancer: Code(s): C34.90 - Malignant neoplasm of unspecified part of unspecified bronchus or lung Status: Acute Assessment and Plan: patient to have outpatient PET scan and eventually outpatient chemotherapy. (2) Encounter for care related to Port-a-Cath: Code(s): Z45.2 - Encounter for adjustment and management of vascular access device Status: Acute Assessment and Plan: Will schedule patient to have outpatient Port-A-Cath placed on Friday06/06/2020 at 10:00 a.m. This is assuming patient is feeling better, pain is controlled, and he is satisfactory candidate for the surgery. Discussed with hospitalist. No consult performed. (3) Recurrent pneumonia: Code(s): J18.9 - Pneumonia, unspecified organism Status: Acute Assessment and Plan: Discussed with hospitalist. Since postobstructive pneumonia no plans for antibiotics or pneumonia treatment. (4) COPD (chronic obstructive pulmonary disease): Qualifiers: COPD type: unspecified COPD Qualified Code(s): J44.9 - Chronic obstructive pulmonary disease, unspecified Code(s): J44.9 - Chronic obstructive pulmonary disease, unspecified Status: Acute (5) History of tobacco abuse: Code(s): Z87.891 - Personal history of nicotine dependence Status: Acute History of Present Illness Consult details Consult date: 05/30/20 Narrative: in the hospital with pain and weakness from metastatic lung cancer. Consult requested for port placement for chemotherapy. [facility]LY [facility] Family History Family History Mother Hypertension Cerebrovascular accident Diabetes mellitus Son Shortness of Breath due to welding Social History Social History Social History: the patient stated that he has 2 children and he lives with his girlfriend. He is a scott. Patient tells me that he quit smoking May 06, 2020. He occasionally uses marijuana. his 2 grown children. His father in law is the durable power insurance defense attorney for healthcare. Patient desires to be a full code. Smoking packs per day: 1 Smoking cigarettes per day: 20.0 Years smoked: 20 Smoking pack-years: 20.00 Smoking status: Former smoker Tobacco type: cigarettes Alcohol intake: former Drinks per week: 1 Substance use: current Substance use type: marijuana Other substance usage details: occasional Last use: 05/06/20 Additional living arrangements comments: girlfriend, and others Additional occupation/education comments: [employer], works really hard, has not been able to work since May 01 Gender identity (if verbalized by the patient): Male Spiritual care concerns: No Meds Home Medications and Allergies Home Medications Medication Instructions Recorded Confirmed Type albuterol sulfate [Proventil HFA] 2 puff INHALATION QID PRN 05/28/20 05/28/20 History umeclidinium-vilanterol [Anoro 1 inh INHALATION HS 05/28/20 05/28/20 History Ellipta] Allergies Allergy/AdvReac Type Severity Reaction Status Date / Time No Known Allergies Allergy Mild Verified 05/28/20 08:42 Vital Signs Vital Signs - 24 hr 05/29/20 20:00 05/29/20 20:58 05/29/20 22:00 Temperature 36.8 C Pulse Rate 108 H Respiratory Rate 22 H Blood Pressure 150/81 H Pulse Oximetry 94 95 92 05/30/20 06:00 05/30/20 06:33 05/30/20 14:00 Temperature 36.5 C 36.8 C Pulse Rate 102 H 102 H Respiratory Rate 22 H 20 Blood Pressure 146/78 H 135/75 Pulse Oximetry 92 95 90 Results Labs Result diagrams: 05/30/20 06:05 05/30/20 06:05 Labs: Abnormal lab results 05/29/20 05/30/20 05/30/20 Range/Units 20:43 06:05 06:05 RBC 3.62 L (4.6-6.20) M/mm3 Hgb 10.1 L (14.0-18.0) g/dL Hct 30.8 L (42.0-52.0) % Plt Cou
--- NOTE | 2020-05-30 17:22 | WPDONCPN ---
Progress Note: A/P - Additional Plan Extensive stage small-cell lung cancer. Brain MRI came back unremarkable. Surgery has been consulted for port placement. Patient has applied Medicaid. Plan is to start chemotherapy as an outpatient after in Medicaid approval. Normocytic anemia. Anemia workup came back unremarkable. We will transfuse on as needed basis. - Time Spent With Patient Total time spent is greater than 50% in coordination of care (as documented) at patient's floor/unit and/or counseling patient: 15 - 25 minutes Subjective Interval history: Extensive stage small-cell lung cancer Anemia secondary to malignancy Review of Systems - Review of Systems Patient remains quite tired and fatigued. He denies any headaches. He denies any fevers and chills. No bleeding and bruising. No other new complaints. - Neurologic Reports system reviewed and no additional complaints, except as documented, Denies headache(s), Denies weakness Exam Vital signs: Temp Pulse Resp BP Pulse Ox 36.8 C 102 H 20 135/75 90 05/30/20 14:00 05/30/20 14:00 05/30/20 14:00 05/30/20 14:00 05/30/20 14:00 Narrative: Lungs are clear to auscultation bilaterally Cardiovascular regular rate rhythm no murmurs Abdomen soft nontender nondistended bowel sounds are positive Extremities no edema PN: Objective Data - Labs CBC & Chem 7: 05/30/20 06:05 05/30/20 06:05 Labs: Laboratory Results - last 24 hr 05/29/20 05/29/20 05/30/20 20:43 20:43 06:05 WBC 7.8 RBC 3.62 L Hgb 10.1 L Hct 30.8 L MCV 85.1 MCH 27.9 MCHC 32.8 RDW 13.1 Plt Count 122 L MPV 10.1 Immature Gran % (Auto) Not Reportable Neut % (Auto) Not Reportable Lymph % (Auto) Not Reportable [place] % (Auto) Not Reportable Eos % (Auto) Not Reportable Baso % (Auto) Not Reportable Lymph # (Auto) Not Reportable [place] # (Auto) Not Reportable Eos # (Auto) Not Reportable Baso # (Auto) Not Reportable Abs Immat Gran (auto) Not Reportable Absolute Neuts (auto) Not Reportable Absolute Nucleated RBC Not Reportable Total Counted 100 Neutrophils % (Manual) 58 Band Neutrophils % 6 Lymphocytes % (Manual) 28.0 Monocytes % (Manual) 7 Basophils % (Manual) 1 Nucleated RBC % Not Reportable Abs Neuts (Manual) 4.99 Abs Lymphs (Manual) 2.18 Abs Monocytes (Manual) 0.54 Abs Basophils (Manual) 0.07 Nucleated RBCs 3 Platelet Estimate Adequate Sodium Potassium Chloride Carbon Dioxide Anion Gap BUN Creatinine Estim Creat Clear Calc Estimated GFR Glucose Calcium Iron 102 TIBC 240 L % Saturation 43 Ferritin > 2000.00 H Total Bilirubin AST ALT Alkaline Phosphatase Total Protein Albumin Vitamin B12 780.0 05/30/20 06:05 WBC RBC Hgb Hct MCV MCH MCHC RDW Plt Count MPV Immature Gran % (Auto) Neut % (Auto) Lymph % (Auto) [place] % (Auto) Eos % (Auto) Baso % (Auto) Lymph # (Auto) [place] # (Auto) Eos # (Auto) Baso # (Auto) Abs Immat Gran (auto) Absolute Neuts (auto) Absolute Nucleated RBC Total Counted Neutrophils % (Manual) Band Neutrophils % Lymphocytes % (Manual) Monocytes % (Manual) Basophils % (Manual) Nucleated RBC % Abs Neuts (Manual) Abs Lymphs (Manual) Abs Monocytes (Manual) Abs Basophils (Manual) Nucleated RBCs Platelet Estimate Sodium 130 L Potassium 4.4 Chloride 95 L Carbon Dioxide 26 Anion Gap 9 BUN 16 Creatinine 0.70 Estim Creat Clear Calc 115 Estimated GFR > 60 Glucose 105 Calcium 9.0 Iron TIBC % Saturation Ferritin Total Bilirubin 0.7 AST 310 H ALT 46 Alkaline Phosphatase 129 H Total Protein 7.0 Albumin 3.6 Vitamin B12
[2020-05-30 22:00] VITALS: BP 149/80; PULSE 106; RESP 20; TEMP 36.8; O2SAT 92
[2020-05-30 22:15] VITALS: O2SAT 92
[2020-05-31] VITALS (7 sets, daily range): BP systolic 132–134; BP diastolic 76–83; PULSE 101–113; RESP 18–36; TEMP 35.5–36.5; O2SAT 94–98
[2020-05-31] MEDS: ALBUTEROL SULFATE NEB 2.5 MG/0.5 ML INH 5 MG INHALATION (00:05)
[2020-05-31 06:16] LABS: Basophils Absolute Auto 0.1 K/mm3 (0.0-0.1); Basophils Percent Auto 0.8 % (0.2-1.2); Eosinophils Absolute Auto 0.1 K/mm3 (0-0.3); Hematocrit 30.3 % (42.0-52.0); Hemoglobin 10.1 g/dL (14.0-18.0); Immature Granulocyte Absolute 0.67 K/mm3 (0.00-0.031); Immature Granulocyte Percent A 9.3 % (0-0.5); Lymphocytes Absolute Auto 1.75 K/mm3 (0.9-3.2); Lymphocytes Percent Auto 24.3 % (18.3-44.2); Mean Corpuscular HGB Conc 33.3 g/dl (32-36); Mean Corpuscular Hemoglobin 28.5 pg (26-34); Mean Corpuscular Volume 85.6 fl (80-100); Mean Platelet Volume 10.1 fl (7.4-10.4); Monocytes Absolute Auto 0.4 K/mm3 (0.1-0.6); Monocytes Percent Auto 6.1 % (2.6-8.5); Neutrophils Absolute Auto 4.2 K/mm3 (1.3-6.7); Neutrophils Percent Auto 58.5 % (45.5-73.1); Nucleated Red Blood Cells Absolute Auto 0.1 K/mm3 (0.0-0.012); Nucleated Red Blood Cells Perc 1.2 % (0.0-0.2); Platelet Count Result 110 k/mm3 (150-375); Red Blood Count 3.54 M/mm3 (4.6-6.20); Red Cell Distribution Width 12.9 % (11.5-14.5); White Blood Count 7.2 K/mm3 (4.5-10.0)
[2020-05-31 06:27] LABS: Alanine Aminotransferase 45 U/L (4-50); Albumin Level 3.6 g/dL (3.5-5.1); Alkaline Phosphatase 137 U/L (38-126); Anion Gap 9 mmol/L (8-16); Aspartate Amino Transferase 303 U/L (17-59); Bilirubin,Total 0.5 mg/dL (0.2-1.3); Blood Urea Nitrogen 16 mg/dL (9-20); Carbon Dioxide 24 mmol/L (22-30); Chloride 97 mmol/L (98-107); Estimated CRCL calculation 115 ml/min; Estimated Glomerular Filt Rate > 60; Glucose 113 mg/dL (75-110); Potassium 4.3 mmol/L (3.4-5.0); Sodium 130 mmol/L (137-145)
[2020-05-31 13:23] LABS: D Dimer 17.91 ug/mL (<0.48)
--- NOTE | 2020-05-31 18:07 | PC.NURSE ---
To Radiology per w/c and o2.
--- NOTE | 2020-05-31 18:11 | PM.IMPN ---
Progress Note: A&P Assessment and Plan (1) Small cell lung cancer: Code(s): C34.90 - Malignant neoplasm of unspecified part of unspecified bronchus or lung Status: Acute Assessment and Plan: A right hilar mass 5.2 x 4.9 cm was seen on CTA 05/01/2020. He was seen in consultation by pulmonology and underwent a bronchoscopy on 05/18/2020 during his last admission from 05/17-05/19/20. 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 He was informed of these results and was referred to oncologist Dr. Ramirez for an appointment on 05/30/20. He has been having chest aching and diffuse body pain which is felt to be secondary to cancer. RUQ US showed possible mets to liver. Brain MRI did not show mets. Oncology and Pulmonology have been consulted and recommendations are appreciated. He had been treated with antibiotics for post-obstructive pneumonia, however I have discussed the case with pulmonology and patient is not felt to have any active infection. No antibiotics required at this time. Continue analgesics as needed. General surgery has been consulted for port placement to begin palliative chemo per Dr. Ramirez. This will be done as an outpatient on 06/06/2020. He will need to have an outpatient PET scan. He is to call Dr. Ramirez's office to schedule this. (2) Syncope: Qualifiers: Syncope type: unspecified Qualified Code(s): R55 - Syncope and collapse Code(s): R55 - Syncope and collapse Status: Acute Assessment and Plan: Patient reports he fell down after getting out of bed when attempting to walk to the bathroom. He felt dizzy upon standing. He did not lose consciousness during the episode. He had poor p.o. intake and likely became dehydrated. Continue to encourage PO intake IV fluids discontinued today as patient has been adequately rehydrated Continue to monitor closely. (3) COPD (chronic obstructive pulmonary disease): Qualifiers: COPD type: unspecified COPD Qualified Code(s): J44.9 - Chronic obstructive pulmonary disease, unspecified Code(s): J44.9 - Chronic obstructive pulmonary disease, unspecified Status: Acute Assessment and Plan: Chronic. He has been maintaining adequate oxygenation on room air. He was recently started on Anoro ellipta and albuterol at home. Patient believes nebulizers cause him to feel sweaty, shaky, and overall unwell. Anoro Ellipta is non-formulary and will transition to Symbicort and Spiriva during stay. Increase Symbicort dose per Dr. Ocampo. Discontinue nebulized breathing treatments Supplemental O2 as needed with goal saturation 90% or above. (4) Liver mass: Code(s): R16.0 - Hepatomegaly, not elsewhere classified Status: Acute Assessment and Plan: LFTs were elevated during his previous hospital stay and he was recommended to obtain repeat labs in 1 week. Upon readmission, levels remained elevated. Abdominal ultrasound performed today showed a 19 mm liver mass suspicious for metastatic disease. Appreciate Dr. Ramirez's evaluation Plan for outpatient PET scan. (5) History of tobacco abuse: Code(s): Z87.891 - Personal history of nicotine dependence Status: Acute Assessment and Plan: He smoked 1 pack per day for 20 years. He quit smoking on 05/01/2020. He declined a nicotine patch (6) Normocytic anemia: Code(s): D64.9 - Anemia, unspecified Status: Acute Assessment and Plan: H&H stable. No evidence of active bleeding. Iron panel showed low TIBC with adequate iron stores. B12 and Folate wnl. Monitor H&H closely and transfuse prn. (7) Elevated d-dimer: Code(s): R79.89 - Other specified abnormal findings of blood chemistry Status: Acute Assessment and Plan: Patient is tachycardic and tachypneic and is in hypercoagulable state given his malignancy. D-dimer was drawn due to concerns for pulmonar
--- NOTE | 2020-05-31 18:24 | PC.NURSE ---
Return from Radiology per w/c, o2 on.
--- NOTE | 2020-05-31 20:14 | PM.DS ---
DS: Admitting Diagnosis Admitting Diagnosis Admitting Diagnosis: syncope/pneumonia DS: Discharge Diagnosis Discharge Diagnosis (1) Small cell lung cancer: Code(s): C34.90 - Malignant neoplasm of unspecified part of unspecified bronchus or lung Status: Acute Assessment and Plan: A right hilar mass 5.2 x 4.9 cm was seen on CTA 05/01/2020. He was seen in consultation by pulmonology and underwent a bronchoscopy on 05/18/2020 during his last admission from 05/17-05/19/20. 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 He was informed of these results and was referred to oncologist Dr. Ramirez for an appointment on 05/30/20, but was unable to attend this appointment because he was feeling unwell and came to the hospital. He was having chest aching and diffuse body pain which was felt to be secondary to cancer. RUQ US showed possible mets to liver. Brain MRI did not show mets. He was seen in consultation by Oncology and pulmonology. He had postobstructive pneumonia was not felt to have an active infection and no antibiotics were required. He will follow-up with general surgery for port placement on 06/06/2020. He will have an outpatient PET scan prior to initiating chemo with Dr. Ramirez. (2) Fall: Qualifiers: Encounter type: initial encounter Qualified Code(s): W19.XXXA - Unspecified fall, initial encounter Code(s): W19.XXXA - Unspecified fall, initial encounter Status: Acute Assessment and Plan: Patient reports he fell down after getting out of bed when attempting to walk to the bathroom at home on 05/28/20. He felt dizzy upon standing but did not lose consciousness during the episode. He had poor p.o. intake and likely became dehydrated. Head CT was negative. He was rehydrated with IV fluids. (3) COPD (chronic obstructive pulmonary disease): Qualifiers: COPD type: unspecified COPD Qualified Code(s): J44.9 - Chronic obstructive pulmonary disease, unspecified Code(s): J44.9 - Chronic obstructive pulmonary disease, unspecified Status: Acute Assessment and Plan: He was recently started on Anoro ellipta and albuterol at home. Patient believes nebulizers cause him to feel sweaty and shake so he was transitioned to MDI inhalers. He maintained adequate oxygenation on room air. (4) Liver mass: Code(s): R16.0 - Hepatomegaly, not elsewhere classified Status: Acute Assessment and Plan: LFTs were elevated during his previous hospital stay and he was recommended to obtain repeat labs in 1 week. Upon readmission, levels remained elevated. Abdominal ultrasound performed today showed a 19 mm liver mass suspicious for metastatic disease. Outpatient PET scan upon discharge. (5) History of tobacco abuse: Code(s): Z87.891 - Personal history of nicotine dependence Status: Acute Assessment and Plan: He smoked 1 pack per day for 20 years. He quit smoking on 05/01/2020. (6) Normocytic anemia: Code(s): D64.9 - Anemia, unspecified Status: Acute Assessment and Plan: H&H stable. No evidence of active bleeding. Iron panel showed low TIBC with adequate iron stores. B12 and Folate wnl. (7) Elevated d-dimer: Code(s): R79.89 - Other specified abnormal findings of blood chemistry Status: Acute Assessment and Plan: D-dimer was drawn due to concerns for pulmonary embolism. as patient was tachycardic, tachypneic, and hypercoagulable given malignancy. D-dimer approximately 1 month ago was 1.16 and increased to 17.91. Wells score was 2.5. Chest CTA was negative for PE. Venous dopplers not performed while inpatient because patient declined to stay in the hospital an additional night. Discussed outpatient venous dopplers with Dr. Ramirez; he is aware of elevated d-dimer. DS: Summary Hospital Course Reason for hospitalization: Shortness of breath, weakness Hospital Course: Date of admission:
--- NOTE | 2020-06-06 18:43 | PM.CNGS ---
Assessment and Plan Assessment and plan (1) Small cell carcinoma of lung: Code(s): C34.90 - Malignant neoplasm of unspecified part of unspecified bronchus or lung Status: Acute Assessment and Plan: advanced, liver metastases, right pleural effusion, extensive lymphadenopathy. Hopefully will respond well to chemotherapy. (2) Encounter for care related to Port-a-Cath: Code(s): Z45.2 - Encounter for adjustment and management of vascular access device Status: Acute Assessment and Plan: Proceed with the relatively minor procedure of portacath placement under local anesthesia with sedation. Hopefully patient's pulmonary status will tolerate this without the need for mechanical ventilation. (3) Thrombocytopenia: Code(s): D69.6 - Thrombocytopenia, unspecified Status: Acute Assessment and Plan: Will recheck in a.m. and give platelets if remains low to avoid postop bleeding. (4) Hyponatremia: Code(s): E87.1 - Hypo-osmolality and hyponatremia Status: Acute Assessment and Plan: Monitor--not too bad today, 128. Recheck in a.m. (5) Chronic obstructive pulmonary disease: Code(s): J44.9 - Chronic obstructive pulmonary disease, unspecified Status: Acute Assessment and Plan: Please see above comments on compromised pulmonary status and possible need for mechanical ventilation postop. It appears the patient's medical condition is not expected to improve until chemotherapy can be administered. History of Present Illness Consult details Consult date: 06/07/20 Reason for consult: central line (chuy cath placement) Narrative: Patient scheduled for portacath placement as an outpatient today but was in such poor shape anesthesiologist called me and was reluctant to provide anesthesia. Patient reports passing out, not eating, unstable on feet, falling, passes out without oxygen which was of course worrisome. Patient known to have lung cancer with lobar obstruction and liver metastases. The Port-A-Cath insertion was canceled and patient was sent to the emergency room. He has since been admitted. Plan is to proceed with port placement tomorrow if hospitalist and anesthesia feel he is suitable medically to proceed. Review of Systems Review of Systems: All systems reviewed & are unremarkable except as noted in HPI and below (HPI) Constitutional: Constitutional: Reports anorexia, Reports body ache(s), Reports fatigue, Reports frequent falls, Reports lethargy, Reports malaise and Reports poor appetite Cardiovascular: Cardiovascular: Reports rapid heart rate, Reports orthopnea and Reports other (syncope) Respiratory: Respiratory: Reports dyspnea and Reports dyspnea on exertion Neurologic: Reports dizziness, Reports disequilibrium and Reports weakness Hematologic/Lymphatic: Hematologic/Lymphatic: Reports other (Platlelets low) [facility] Past Medical History Medical History Anemia of chronic disease Chronic obstructive pulmonary disease History of tobacco abuse He had smoked up to 1.5 packs of cigarettes per day for 20 years and quit 05/06/2020. Small cell carcinoma of lung Initial diagnosis on 05/18/2020 biopsy. Chest CTA on 06/06/2020 showed a large right upper lobe mass with occlusion of the right upper lobe bronchus and stenosis of bronchus intermedius with mass effect on the superior vena cava and right-sided pulmonary arteries as well as the right side of the heart with airspace opacities consistent with postobstructive pneumonia as well as findings of a malignant moderate size right pleural effusion, chest and abdominal lymphadenopathy, and multiple liver masses consistent with metastatic cancer. Surgical History Surgical History History of bronchoscopy (~05/18/20) Right upper lobe --> small cell carcinoma. Family History Family History (Reviewe
== END 2020-05-31 20:00 | disposition home or self-care (01) | DRG 136 ==
LOC: ANHED 12:03 → ANH3MEDSUR 05-29 06:40
PROVIDERS: Internal Medicine Hematology & Oncology; Nurse Practitioner; Admitting Provider Internal Medicine; Emergency Provider Emergency Medicine; Visit Provider Physician Assistant
DX: C34.90 Malignant neoplasm of unspecified part of unspecified bronchus or lung (principal); R55 Syncope and collapse; C78.7 Secondary malignant neoplasm of liver and intrahepatic bile duct; J44.9 Chronic obstructive pulmonary disease, unspecified; R79.89 Other specified abnormal findings of blood chemistry; D63.0 Anemia in neoplastic disease; W19.XXXA Unspecified fall, initial encounter; Z87.891 Personal history of nicotine dependence
CPT/HCPCS: 36415; 70450; 70553; 71046; 71275; 76700; 80048; 80053; 82607; 82728; 83540; 83550; 84484; 85025; 85380; 87040; 90471; 90715; 93005; 94618; 94640; 96365; 96367; 96374; 99285; A9270; A9577; J0456; J0696; J1170; J7030; Q9967

== ENCOUNTER 2020-06-03 00:48 | Outpatient (CLI) | payer MEDICAID, SELFPAY ==
[2020-06-03 19:29] LABS: SARS-CoV-2 RNA PCR Negative
== END 2020-06-03 00:49 | disposition home or self-care (01) ==
LOC: ANHCOVIDDT 00:48
PROVIDERS: Visit Provider Surgery
DX: Z01.812 Encounter for preprocedural laboratory examination (principal); Z20.828 Contact with and (suspected) exposure to other viral communicable diseases
CPT/HCPCS: 87635; C9803; U0003

== ENCOUNTER 2020-06-06 00:46 | Day surgery (SDC) | payer MEDICAID, SELFPAY ==
[2020-06-01 10:51] VITALS: BMI 27.8
--- NOTE | 2020-06-05 11:53 | WPDANESEPPF ---
Anes - Initial Pre Proc Eval Procedure: Operation Date: 06/06/20 10:00 Proposed Procedures p Leidy Cath Insertion With Fluoroscopy - Charli Tobin MD Date/Time: 06/05/20 11:53 Surgeon: Charli Tobin MD Pre Op Diagnosis: Lung Cancer Patient Data Age: 50 Gender: M Height: 5 ft 6.5 in Weight: 79.38 kg Allergies Allergy/AdvReac Type Severity Reaction Status Date / Time No Known Allergies Allergy Mild Verified 06/01/20 10:48 Home Medications Medication Instructions Recorded Confirmed Type Anoro Ellipta 1 inh INHALATION HS 05/28/20 06/01/20 History albuterol sulfate [Proventil HFA] 2 puff INHALATION QID PRN 05/28/20 06/01/20 History PMFSH Social History Social History Social History: the patient stated that he has 2 children and he lives with his girlfriend. He is a scott. Patient tells me that he quit smoking May 06, 2020. He occasionally uses marijuana. his 2 grown children. His father in law is the durable power tax associate attorney for healthcare. Patient desires to be a full code. Smoking packs per day: 1 Smoking cigarettes per day: 20.0 Years smoked: 32 Smoking pack-years: 32.00 Smoking status: Former smoker Tobacco type: cigarettes Smoking end date: 05/06/20 Alcohol intake: former Drinks per week: 1 Substance use: current Substance use type: marijuana Other substance usage details: TWICE A MONTH Last use: 05/06/20 Additional living arrangements comments: girlfriend, and others Additional occupation/education comments: [employer], works really hard, has not been able to work since May 01 Gender identity (if verbalized by the patient): Male Spiritual care concerns: No Anes - Eval Final PreProcedure Day of Procedure 06/05/20 11:53 Informed Consent: The patient's anesthetic plan and its attendant risks and benefits were discussed with the patient/family/POA. Questions were solicited and answers provided to the satisfaction of the patient/family/POA.
[2020-06-06 07:15] VITALS: BP 115/76; PULSE 114; TEMP 36.2; O2SAT 97
--- NOTE | 2020-06-06 08:30 | SUR.PREOP ---
0715 PT ARRIVED WITH HOME 02 AT 2L. TRANSFERED TO WALL O2 2L. STATES HAS BEEN PASSING OUT WITH OUT HIS OXYGEN, POOR APPETITE, FEELING BAD FOR OVER A WEEK. STATS HE PASSED OUT IN THE SHOWER AND STRUCK HIS HEAD LAST NIGHT. DR YING MADE AWARE 0733 DR YING SPOKE WITH DR. FAJARDO, PT CASE CANCELLED AND PT TRANSFERED TO ER PER STRETCHER.
== END 2020-06-06 07:45 | disposition other institution (70) ==
PROVIDERS: Visit Provider Surgery
DX: C34.90 Malignant neoplasm of unspecified part of unspecified bronchus or lung (principal); R55 Syncope and collapse
CPT/HCPCS: 99213; C9290; G0463; J1644; J7030

== ENCOUNTER 2020-06-06 08:02 | Inpatient (IN) | payer MEDICAID, SELFPAY ==
[2020-06-06] VITALS (10 sets, daily range): BP systolic 118–134; BP diastolic 75–84; PULSE 109–113; RESP 18–34; TEMP 36.2–36.7; O2SAT 95–100; BMI 26.6
--- NOTE | ~2020-06-06 | XR_ITS ---
EXAMINATION: XR chest port-a-cath/central DATE: 06/07/2020 16:05 INDICATION: Port placement. TECHNIQUE: A single frontal view of the chest was obtained. COMPARISON: Chest 2 views 05/28/2020, chest CT 06/06/2020 FINDINGS: There are extensive airspace opacities in right lung with a perihilar and lower lung predom inance. There is a moderate-sized right pleural effusion. No pneumothorax. The heart size is normal. There is a left subclavian port with tip in superior vena cava. IMPRESSION: 1. Port tip in superior vena cava. 2. Diffuse right lung disease with a perihilar and lower lung predominance, consistent with pneumonia and malignancy. 3. Moderate-sized right pleural effusion. Reviewed, dictated and finalized at location B. IMPRESSION: 1. Port tip in superior vena cava. 2. Diffuse right lung disease with a perihilar and lower lung predominance, con sistent with pneumonia and malignancy. 3. Moderate-sized right pleural effusion.
--- NOTE | ~2020-06-06 | CT_ITS ---
EXAMINATION: CT brain wo con DATE: 06/06/2020 09:50 INDICATION: Syncope. TECHNIQUE: Computed tomography (CT) of the head was performed without intravenous contrast. The mA wa s adjusted according to patient size. Iterative reconstruction technique was employed. The dose-lengt h product was 605.33 mGy-cm. COMPARISON: Head CT 05/28/2020 FINDINGS: There is no intracranial hemorrhage, acute infarction, or abnormal intracranial mass lesion . The ventricles are normal in size. There is mild mucosal thickening in the sphenoid sinuses. The ma stoid air cells are normal. The orbits are normal. IMPRESSION: 1. Normal brain. Reviewed, dictated and finalized at location B. IMPRESSION: 1. Normal brain.
--- NOTE | ~2020-06-06 | XR_ITS ---
EXAMINATION: XR fl guide central line place DATE: 06/07/2020 15:54 INDICATION: Port catheter placement TECHNIQUE: 2 fluoroscopic spot images of the chest were obtained during procedure performed by Dr. Hodges. Radiologist was not present for the imaging or procedure. The amount of fluoroscopy time used dur ing this procedure was 5.6 minutes. COMPARISON: CT dated 06/06/2020 FINDINGS: Images demonstrate a left-sided central venous port catheter. The cephalad loop of the catheter is ex cluded from the [id number]. The more distal catheter extends across the left brachiocephalic vein with distal tip at the midsuperior vena cava which is deviated slightly towards the left. Visualized medial portion of the central right hemithorax is opacified. IMPRESSION: 1. Fluoroscopy utilized during central venous port catheter placement with distal tip in the midsuper ior vena cava. See procedure note for further detail. Reviewed, dictated and finalized at location A. IMPRESSION: 1. Fluoroscopy utilized during central venous port catheter placement with dist al tip in the midsuperior vena cava. See procedure note for further detail.
--- NOTE | ~2020-06-06 | CT_ITS ---
EXAMINATION: CTA chest PE protocol DATE: 06/06/2020 09:51 INDICATION: Syncope. TECHNIQUE: Computed tomography angiography (CTA) of the chest was performed with 100 mL Omnipaque-350 intravenous contrast timed to evaluate the pulmonary arteries. Coronal maximum intensity projection 3D-reconstructions were created by the technologist. Automated exposure control and iterative reconst ruction technique were employed. The dose-length product was 349.93 mGy-cm. COMPARISON: Chest CT 05/31/2020 FINDINGS: There is mild emphysema. There is a moderate-sized right pleural effusion. There is nodular pleural thickening in right hemithorax. There is bulky right hilar and mediastinal lymphadenopathy w ith occlusion of right upper lobe bronchus and stenosis of bronchus intermedius. There is mass effect on superior vena cava, the right-sided pulmonary arteries, and the atria of the heart. There are air space and groundglass opacities involving right upper lobe, right middle lobe, and right lower lobe. A calcified right lung nodule and calcified subcarinal lymph nodes are consistent with old granulomat ous disease. There is a small pericardial effusion. There is no pulmonary embolus. Sensitivity in lef t lung is moderately decreased by motion artifact. There is bilateral supraclavicular lymphadenopathy . There are multiple masses in the liver measuring up to 2.0 cm. There is gastrohepatic and periport al lymphadenopathy. There is mild thoracic spondylosis. IMPRESSION: 1. No pulmonary embolus. Sensitivity is moderately decreased in left lung by motion artifact. 2. Chest and abdominal lymphadenopathy, malignant moderate-sized right pleural effusion, and liver ma sses, consistent with metastatic small cell lung cancer. 3. Airspace and groundglass opacities in all right lung lobes, consistent with postobstructive pneumo chase. 4. Mild emphysema. 5. Small pericardial effusion. Reviewed, dictated and finalized at location B. IMPRESSION: 1. No pulmonary embolus. Sensitivity is moderately decreased in left lung by mo tion artifact. 2. Chest and abdominal lymphadenopathy, malignant moderate-sized right pleural effusion, and liver masses, consistent with metastatic small cell lung cancer. 3. Airspace and groundglass opacities in all right lung lobes, consistent with postobstructive pneumonia. 4. Mild emphysema. 5. Small pericardial effusion.
--- NOTE | ~2020-06-06 | XR_ITS ---
EXAMINATION: XR chest 2V DATE: 06/10/2020 09:06 INDICATION: Shortness of breath TECHNIQUE: frontal and lateral views of the chest were obtained. COMPARISON: Chest radiograph dated 06/09/2020 FINDINGS: Increasing opacification in the right midlung zone with unchanged airspace opacities in the right upp er lung zone and complete opacification of the right lower lung zone. There is pleural effusion at th e periphery of the right apex. Left lung remains clear with no pleural effusion. No pneumothorax. Lef t-sided the cardiomediastinal silhouette is normal. The right side remains obscured. Left subclavian central venous port catheter with distal tip in the midsuperior vena cava. IMPRESSION: 1. Extensive opacification of the right hemithorax with small amount of residual aerated lung in the right upper lung zone. This likely represents interval enlargement of a moderate to large right pleur al effusion with underlying likely combination of malignancy, atelectasis, pneumonia and/or asymmetri c pulmonary edema. Reviewed, dictated and finalized at location A. IMPRESSION: 1. Extensive opacification of the right hemithorax with small amount of residua l aerated lung in the right upper lung zone. This likely represents interval en largement of a moderate to large right pleural effusion with underlying likely combination of malignancy, atelectasis, pneumonia and/or asymmetric pulmonary e lex.
--- NOTE | ~2020-06-06 | US_ITS ---
EXAMINATION: US venous doppler [facility] DATE: 06/07/2020 08:36 INDICATION: Calf pain. TECHNIQUE: Grayscale ultrasound images without and with compression and Doppler ultrasound images of the bilateral lower extremity veins were obtained. COMPARISON: None. FINDINGS: The visualized portions of right common femoral vein, profunda (deep) femoral vein, femoral vein, pop liteal vein, peroneal veins, posterior tibial veins, and greater saphenous vein outflow are patent. The visualized portions of left common femoral vein, profunda femoral vein, femoral vein, popliteal v ein, peroneal veins, posterior tibial veins, and greater saphenous vein outflow are patent. IMPRESSION: 1. No deep venous thrombosis. Reviewed, dictated and finalized at location B.
--- NOTE | ~2020-06-06 | US_ITS ---
EXAMINATION: US thoracentesis DATE: 06/09/2020 12:56 INDICATION: Moderate-sized right pleural effusion TECHNIQUE: The procedure and its risks and benefits were discussed with the patient. Potential risks discussed included bleeding, infection, and pneumothorax. The patient understood the risks and agreed to proceed. The skin was prepped and draped in sterile fashion. 1% lidocaine was used for local anes thesia. Under ultrasound guidance, a 5 Fr catheter with trochar was advanced into the large right ple ural effusion. Fluid was aspirated. The catheter was removed, and a dressing was applied. There were no immediate complications. FINDINGS: Ultrasound images demonstrate a large right pleural effusion and the catheter within the fluid. IMPRESSION: 1. Successful ultrasound-guided thoracentesis yielding 1000 mL of dark maroon-colored fluid. Reviewed, dictated and finalized at location A. IMPRESSION: 1. Successful ultrasound-guided thoracentesis yielding 1000 mL of dark maroon- colored fluid.
--- NOTE | ~2020-06-06 | XR_ITS ---
EXAMINATION: XR chest 2V DATE: 06/09/2020 11:49 INDICATION: Status post right thoracentesis. TECHNIQUE: frontal and lateral views of the chest were obtained. COMPARISON: Chest radiograph dated 06/07/2020 FINDINGS: Left subclavian central venous port catheter. Moderate-sized right pleural effusion. Airspace opaciti es throughout the right lung relatively sparing the right apex. Left lung is clear. No pneumothorax o r left-sided pleural effusion. Heart size is normal. IMPRESSION: 1. Residual moderate-sized right pleural effusion. No pneumothorax. 2. Opacification of the majority of the right lung likely combination of malignancy, atelectasis, pne umonia and/or asymmetric pulmonary edema.. Reviewed, dictated and finalized at location A. IMPRESSION: 1. Residual moderate-sized right pleural effusion. No pneumothorax. 2. Opacification of the majority of the right lung likely combination of malign zoran, atelectasis, pneumonia and/or asymmetric pulmonary edema..
--- NOTE | 2020-06-06 08:11 | ECG_ITS ---
Measurements Intervals [place] Rate: 111 P: 47 VT: 133 QRS: 40 QRSD: 105 T: 11 QT: 325 QTc: 442 Interpretive Statements SINUS TACHYCARDIA DELAYED PRECORDIAL R/S TRANSITION MINIMAL Q WAVES- INFERIOR LEADS BORDERLINE ST-T WAVE ABNORMALITY- INFERIOR LEADS BASELINE ARTIFACT- I, II, AVR, AVL ABNORMAL ECG Electronically Signed On 06-06-2020 13:21:41 CDT by Ry Paulino D.O.
[2020-06-06 08:25] LABS: Basophils Absolute Auto 0.1 K/mm3 (0.0-0.1); Basophils Percent Auto 0.8 % (0.2-1.2); Eosinophils Absolute Auto 0.1 K/mm3 (0-0.3); Eosinophils Percent Auto 1.2 % (0-4.4); Hematocrit 28.8 % (42.0-52.0); Hemoglobin 9.7 g/dL (14.0-18.0); Immature Granulocyte Absolute 0.66 K/mm3 (0.00-0.031); Immature Granulocyte Percent A 11.2 % (0-0.5); Immature Platelet Fraction Pct 6.6 % (0.9-11.2); Lymphocytes Absolute Auto 2.46 K/mm3 (0.9-3.2); Lymphocytes Percent Auto 41.6 % (18.3-44.2); Mean Corpuscular HGB Conc 33.7 g/dl (32-36); Mean Corpuscular Hemoglobin 28.3 pg (26-34); Mean Platelet Volume 10.6 fl (7.4-10.4); Monocytes Absolute Auto 0.3 K/mm3 (0.1-0.6); Monocytes Percent Auto 5.6 % (2.6-8.5); Neutrophils Absolute Auto 2.3 K/mm3 (1.3-6.7); Neutrophils Percent Auto 39.6 % (45.5-73.1); Nucleated Red Blood Cells Absolute Auto 0.7 K/mm3 (0.0-0.012); Nucleated Red Blood Cells Perc 11.2 % (0.0-0.2); Platelet Count Result 49 k/mm3 (150-375); Red Blood Count 3.43 M/mm3 (4.6-6.20); Red Cell Distribution Width 13.3 % (11.5-14.5); White Blood Count 5.9 K/mm3 (4.5-10.0)
[2020-06-06 08:38] LABS: Anion Gap 10 mmol/L (8-16); Blood Urea Nitrogen 21 mg/dL (9-20); Calcium 10.2 mg/dL (8.4-10.2); Carbon Dioxide 26 mmol/L (22-30); Chloride 92 mmol/L (98-107); Estimated Glomerular Filt Rate > 60; Glucose 120 mg/dL (75-110); Potassium 4.4 mmol/L (3.4-5.0); Sodium 128 mmol/L (137-145)
--- NOTE | 2020-06-06 08:58 | ED.SYNCOPE ---
HPI - Syncope General Chief Complaint: Syncope Stated Complaint: shortness breath Time Seen by Provider: 06/06/20 08:07 Source: patient Mode of arrival: wheelchair Limitations: no limitations History of Present Illness HPI narrative: Patient been having intermittent syncope over the last 2 weeks, last one was last night with left forehead hematoma. Patient had a recent diagnosis of lung cancer 1 month ago, came this morning to have Port-A-Cath placement and when they found out that the patient had syncope last night, referred to the emergency room for further evaluation. Currently patient complaining of left frontal headache. Patient denies any fever, chills, nausea, vomiting. Complaining of shortness of breath for the last few weeks. Related Data Home Medications Medication Instructions Recorded Confirmed Anoro Ellipta 1 inh INHALATION HS 05/28/20 06/06/20 albuterol sulfate [Proventil HFA] 2 puff INHALATION QID PRN 05/28/20 06/06/20 Allergies Allergy/AdvReac Type Severity Reaction Status Date / Time No Known Allergies Allergy Mild Verified 06/06/20 08:27 Review of Systems Review of Systems: Narrative: CONSTITUTIONAL: Denies fever, chills, or sweats. EYES: Denies visual changes, redness, or discharge. ENT: Denies rhinorrhea, congestion, sore throat, or otalgia. CARDIOVASCULAR: Denies chest pain, palpitations, or edema. RESPIRATORY: Shortness of breath and hyperventilation GASTROINTESTINAL: Denies abdominal pain, nausea, vomiting, or diarrhea. GENITOURINARY: Denies dysuria or hematuria. SKIN: Denies rash or itching. MUSCULOSKELETAL: Denies back pain, joint pain, or myalgia. NEUROLOGIC: Left frontal headache and recurrent syncope PSYCHIATRIC: Denies anxiety or depression. [facility] Past Medical History Medical History COPD (chronic obstructive pulmonary disease) Device, implant, or graft complication left antecubital plasma port History of tobacco abuse stopped May 01, 2020 Lung mass Patient denies medical problems Surgical History Surgical History History of bronchoscopy with biopsy Family History Family History Mother Hypertension Cerebrovascular accident Diabetes mellitus Son Shortness of Breath due to welding Social History Social History Social History: the patient stated that he has 2 children and he lives with his girlfriend. He is a scott. Patient tells me that he quit smoking May 06, 2020. He occasionally uses marijuana. his 2 grown children. His father in law is the durable power contract attorney for healthcare. Patient desires to be a full code. Smoking packs per day: 1 Smoking cigarettes per day: 20.0 Years smoked: 32 Smoking pack-years: 32.00 Smoking status: Former smoker Tobacco type: cigarettes Smoking end date: 05/06/20 Alcohol intake: former Drinks per week: 1 Substance use: current Substance use type: marijuana Other substance usage details: TWICE A MONTH Last use: 05/06/20 Additional living arrangements comments: girlfriend, and others Additional occupation/education comments: [employer], works really hard, has not been able to work since May 01 Gender identity (if verbalized by the patient): Male Spiritual care concerns: No Exam Narrative: Exam Narrative: General appearance: Well-developed, well-nourished Skin: Normal color Head: Normocephalic, nontraumatic Eyes: Clear conjunctiva ENT: Oropharynx normal, ears normal, nose normal Neck: Supple, nontender Chest and respiratory: Airway patent, labored breathing, diminished of air entry bilaterally Heart: Regular rate/rhythm Abdomen: Soft, nontender, no organomegaly, quiet bowel sounds Vascular: Normal peripheral pulses, normal capillary refill. Musculoskeletal: Normal range o
[2020-06-06 09:25] LABS: Alveolar/Arterial O2 Gradient 60.7 mmHg; Fractional Inspired Oxygen 21 %; HCO3 ABG 20.2 mEq/l (22.0-26.0); Oxygen Content ABG 12.9 %vol (16.0-22.0); Oxygen Saturation ABG 92.7 % (95.0-100.0); Oxyhemoglobin 89.1 % THb (90.0-100.0); PCO2 ABG 26.4 mmHg (35.0-45.0); PO2 ABG 57.4 mmHg (80.0-100.0); PO2 FiO2 Ratio Arterial Blood 2.73 %; Total Hemoglobin 10.3 g/dL (12.0-18.0); pH ABG 7.502 (7.350-7.450)
[2020-06-06 09:27] LABS: Device ROOM AIR; Site Drawn RIGHT BRACHIAL
--- NOTE | 2020-06-06 12:21 | ADMGEN ---
This patient, Sourav Pool, was admitted to [facility] Surg Room 312-01. Patient/family oriented to hospital policies and general routines including ID bracelet, bed and alarms, visiting hours, pain management, procedures, bathroom and other care routines, personal items, smoking policy, room service/diet, and visiting hours. Valuables list has been completed. Information on how to activate the Rapid Response Team has been discussed. Patient/Family are encouraged to report perceived risks to care and to ask questions if they do not understand what they are told or what they should do.
--- NOTE | 2020-06-06 13:49 | PC.NURSE ---
room darkened for pt comfort. pts respirations 28. remain shallow. pulse ox 98 % 4 l nc.
[2020-06-06] MEDS: SODIUM CHLORIDE 0.9% IV 1,000 ML 125 ML IV CONT (15:24)
--- NOTE | 2020-06-06 17:11 | PDONCCN ---
[facility] - Date of Consult Date/Time: 06/06/20 17:11 Requesting Physician: Bhavesh Freedman MD Primary Care Provider: UNKNOWN,DOCTOR - Consult Narrative Reason for consult: Extensive stage small-cell lung cancer Narrative: Sourav Pool is a 50 year old male This is a 50-year-old male who was admitted to the hospital in April, with diagnosis of pneumonia. He had bronchoscopy and biopsy of lung mass done on May 18, 2020 that came back positive for small cell lung cancer. Abdominal ultrasound was done that showed 1.9 cm liver mass. His liver enzymes were found to be elevated. Patient came into the ER after having a syncopal episode with fall resulted left head injury. He was supposed to have MediPort placement and to follow-up in our office to start systemic chemotherapy. He has been complaining of tiredness and fatigue. Denies any headache. Denies any chest pain but does have some shortness of breath and dyspnea on exertion. Review of Systems - Review of Systems All systems reviewed & are unremarkable except as noted in HPI and [facility] Medical History: Medical History (Last Updated 06/06/20 @ 15:52 by Valorie Haines PA-C) Anemia of chronic disease Chronic obstructive pulmonary disease Device, implant, or graft complication left antecubital plasma port History of tobacco abuse He had smoked up to 1.5 packs of cigarettes per day for 20 years and quit 05/06/2020. Small cell carcinoma of lung Initial diagnosis on 05/18/2020 biopsy. Chest CTA on 06/06/2020 showed a large right upper lobe mass with occlusion of the right upper lobe bronchus and stenosis of bronchus intermedius with mass effect on the superior vena cava and right-sided pulmonary arteries as well as they tree of the heart with airspace opacities consistent with postobstructive pneumonia as well as findings of a malignant moderate size right pleural effusion, chest and abdominal lymphadenopathy, and multiple liver masses consistent with metastatic cancer. Surgical History: Surgical History (Last Updated 06/06/20 @ 15:54 by Valorie Haines PA-C) History of bronchoscopy Onset Date: ~05/18/20 Right upper lobe --> small cell carcinoma. Family History: Family History (Last Reviewed 06/06/20 @ 15:55 by Valorie G. Gerling, PA-C) Mother Hypertension Cerebrovascular accident Diabetes mellitus Son Shortness of Breath due to welding - Social History Social History: Social History (Last Updated 06/06/20 @ 15:55 by Valorie Haines PA-C) Gender Identity: Gender identity (if verbalized by the patient): Male Sexual Orientation: Sexual Orientation (if Verbalized by the Patient): Straight or Heterosexual Alcohol Use: Alcohol intake: former Drinks per week: 1 Substance Use: Substance use: never Substance use type: marijuana Other substance usage details: TWICE A MONTH Last use: 05/06/20 Others: Spiritual care concerns: No Smoking Status: Smoking status: Former smoker Tobacco type: cigarettes Second hand tobacco smoke exposure: No Smoking end date: 05/06/20 Smoking Pack-years: Smoking packs per day: 1 Smoking cigarettes per day: 20.0 Years smoked: 32 Smoking pack-years: 32.00 Meds Home Medications Medication Instructions Recorded Confirmed Type Anoro Ellipta 1 inh INHALATION HS 05/28/20 06/06/20 History albuterol sulfate [Proventil HFA] 2 puff INHALATION QID PRN 05/28/20 06/06/20 History Allergies Allergy/AdvReac Type Severity Reaction Status Date / Time No Known Allergies Allergy Mild Verified 06/06/20 08:27 Results - Labs CBC & Chem 7: 06/06/20 08:15 06/06/20 08:15 Labs: Short CBC 06/06/20 Range/Units 08:15 WBC 5.9 (4.5-10.0) K/mm3 Hgb 9.7 L (14.0-18.0) g/dL Hct 28.8 L (42.0-52.0) % Plt Count 49 L D (150-375) k/mm3 BMP 06/06/20 08:15 Sodium 128
--- NOTE | 2020-06-06 19:30 | PM.IMHP ---
H&P: HPI History of Present Illness Date/Time: 06/06/20 20:00 Chief complaint: Syncope. Narrative: Sourav Pool is an unfortunate 50-year-old male recently diagnosed with metastatic small cell carcinoma of the lung who presented to the emergency department earlier today from preop for evaluation of after a syncopal episode. He was scheduled for a Port-A-Cath insertion per Dr. Tobin this morning however he mentioned having a syncopal episode the night before and he was instead referred to the emergency department. It sounds as though he has been having coughing jags, and has had several syncopal episodes during those coughing episodes. Last night he fell forward, sustaining an abrasion and swelling to the left forehead. He has felt generally poor for the last couple of months, and at the end of April he was seen emergency department where he was found to have a right hilar mass. Bronchoscopy on May 18 demonstrated small cell carcinoma of the lung, and unfortunately he has yet to start chemotherapy or even have a cath placed due to complications in hospitalizations. At the time my evaluation he tells me that he is scared that he is not going to live much longer, given the continued growth of his tumor and inability to receive chemotherapy as of yet. He has not had any significant change in condition and continues to feel very weak with conversational dyspnea, shortness of breath at rest, occasional racing heart, coughing fits, frequent sweats (worse with food) and poor appetite. He denies fever, sinus congestion, rhinorrhea, otalgia, odynophagia, and nausea, and dysgeusia. He has not left the house and typically friends or family members bring food for him and his girlfriend to eat. No known sick contacts but they do live in a multi generation all home, with 8 adults and I believe some children as well. Review of Systems Review of Systems: Narrative: Twelve systems were reviewed with pertinent positives and negatives as per HPI. No headache or neck ache. He has felt weak in occasionally lightheaded. No focal weakness or paresthesias. He denies dysphagia and concerns for aspiration. He denies feelings of racing heart however he has been tachycardic. No vomiting, nausea, or diarrhea. He denies dysuria. No lower extremity edema. Except as documented, all other systems were reviewed and are negative. [facility] Past Medical History Medical History (Updated 06/07/20 @ 02:00 by Valorie Haines PA-C) Anemia of chronic disease Chronic obstructive pulmonary disease History of tobacco abuse He had smoked up to 1.5 packs of cigarettes per day for 20 years and quit 05/06/2020. Small cell carcinoma of lung Initial diagnosis on 05/18/2020 biopsy. Chest CTA on 06/06/2020 showed a large right upper lobe mass with occlusion of the right upper lobe bronchus and stenosis of bronchus intermedius with mass effect on the superior vena cava and right-sided pulmonary arteries as well as the right side of the heart with airspace opacities consistent with postobstructive pneumonia as well as findings of a malignant moderate size right pleural effusion, chest and abdominal lymphadenopathy, and multiple liver masses consistent with metastatic cancer. Surgical History Surgical History History of bronchoscopy (~05/18/20) Right upper lobe --> small cell carcinoma. Family History Family History Mother Hypertension Cerebrovascular accident Diabetes mellitus Son Shortness of Breath due to welding Social History Social History (Updated 06/07/20 @ 01:44 by Valorie Haines PA-C) Social History: The patient lives in a multi generational home in [place]. He has 2 grown children. 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 He smoked 1 pack of cigarettes per day for about 32 years and quit on May 06, 2020. He occa
[2020-06-06 19:44] LABS: Iron 96 ug/dL (49-181)
[2020-06-06 19:53] LABS: Percent Iron Saturation 39 % (20-50)
[2020-06-06 20:41] LABS: Folic Acid 8.3 ng/mL (2.76->20); Vitamin B12 > 1000.0 pg/mL (239-931)
[2020-06-06 21:34] LABS: Ferritin > 2000.00 ng/mL (17.9-464)
[2020-06-06 22:00] LABS: Anion Gap 11 mmol/L (8-16); Blood Urea Nitrogen 20 mg/dL (9-20); Calcium 9.9 mg/dL (8.4-10.2); Carbon Dioxide 24 mmol/L (22-30); Chloride 93 mmol/L (98-107); Estimated CRCL calculation 82 ml/min; Estimated Glomerular Filt Rate > 60; Glucose 123 mg/dL (75-110); Magnesium 2.1 mg/dL (1.6-2.3); Potassium 4.4 mmol/L (3.4-5.0); Sodium 128 mmol/L (137-145)
[2020-06-07] VITALS (22 sets, daily range): BP systolic 115–140; BP diastolic 63–83; PULSE 80–119; RESP 15–24; TEMP 36.2–37; O2SAT 94–100
[2020-06-07 00:08] LABS: Free T4 Free Thyroxine Reflex 0.74 ng/dL (0.78-2.19)
[2020-06-07] MEDS: LEVALBUTEROL HFA (*SP) 15 GM INHALER 2 PUFF INHALATION (02:38)
[2020-06-07 02:41] LABS: Lactic Acid Reflex 2.5 mmol/L (0.7-2.1); Phosphorus 6.1 mg/dL (2.5-4.5); Uric Acid 8.1 mg/dL (3.5-8.5)
[2020-06-07 02:47] LABS: Alanine Aminotransferase 43 U/L (4-50); Albumin Level 3.4 g/dL (3.5-5.1); Alkaline Phosphatase 264 U/L (38-126); Anion Gap 11 mmol/L (8-16); Aspartate Amino Transferase 308 U/L (17-59); Bilirubin,Total 0.8 mg/dL (0.2-1.3); Blood Urea Nitrogen 20 mg/dL (9-20); Calcium 9.9 mg/dL (8.4-10.2); Carbon Dioxide 24 mmol/L (22-30); Chloride 95 mmol/L (98-107); Estimated CRCL calculation 82 ml/min; Estimated Glomerular Filt Rate > 60; Glucose 113 mg/dL (75-110); Potassium 4.7 mmol/L (3.4-5.0); Sodium 130 mmol/L (137-145)
[2020-06-07 03:08] LABS: INR 1.2; Prothrombin Time 14.7 Seconds (11.1-14.7)
[2020-06-07 03:09] LABS: CRP 37.5 mg/dL (<1.0)
[2020-06-07 03:45] LABS: Fibrinogen 461 mg/dl (215-510)
[2020-06-07] MEDS: LORazepam 0.5 MG TABLET PO (03:50)
[2020-06-07 05:26] LABS: Reflex Lactic Acid Yes or No Add Lactic
[2020-06-07 05:57] LABS: Lactic Acid 2.5 mmol/L (0.7-2.1)
[2020-06-07 06:48] LABS: Anion Gap 12 mmol/L (8-16); Blood Urea Nitrogen 21 mg/dL (9-20); Calcium 9.9 mg/dL (8.4-10.2); Carbon Dioxide 23 mmol/L (22-30); Chloride 94 mmol/L (98-107); Estimated CRCL calculation 82 ml/min; Estimated Glomerular Filt Rate > 60; Glucose 132 mg/dL (75-110); Potassium 4.4 mmol/L (3.4-5.0); Sodium 129 mmol/L (137-145)
[2020-06-07 06:52] LABS: Hematocrit 26.3 % (42.0-52.0); Hemoglobin 8.9 g/dL (14.0-18.0); Immature Platelet Fraction Pct 6.8 % (0.9-11.2); Mean Corpuscular HGB Conc 33.8 g/dl (32-36); Mean Corpuscular Hemoglobin 28.8 pg (26-34); Mean Corpuscular Volume 85.1 fl (80-100); Mean Platelet Volume 11.5 fl (7.4-10.4); Platelet Count Result 36 k/mm3 (150-375); Red Blood Count 3.09 M/mm3 (4.6-6.20); Red Cell Distribution Width 13.5 % (11.5-14.5); White Blood Count 5.3 K/mm3 (4.5-10.0)
--- NOTE | 2020-06-07 07:50 | PC.NURSE ---
To ultrasound per stretcher.
--- NOTE | 2020-06-07 08:36 | P.PNIM_ITS ---
Progress Note: A&P Assessment and Plan (1) Acute hypoxemic respiratory failure: Code(s): J96.01 - Acute respiratory failure with hypoxia Status: Acute Assessment and Plan: * Likely due to small cell carcinoma of the lung, PNA and right pleural effusion. (2) Syncope: Qualifiers: Syncope type: unspecified Qualified Code(s): R55 - Syncope and collapse Code(s): R55 - Syncope and collapse Status: Acute Assessment and Plan: * Could be a vasovagal syncope. Echo is pending. * Despite a very high D-dimer and risk factors for such, no pulmonary embolism was noted on chest CTA. . (3) Small cell carcinoma of lung: Code(s): C34.90 - Malignant neoplasm of unspecified part of unspecified bronchus or lung Status: Acute Assessment and Plan: * Mass continues to expand with increasing mets to the liver on imaging. * He has a right sided pleural effusion that might be contributing to his SOB, we will have pulmonary to see him and see if he needs a thoracocentesis. * Morphine PRN for pain and dyspnea. 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 * Dw oncology we will start methylprednisone 125 mg q 8hours if platelets drop below 20 or bleeding will transfuse. (5) Elevated LFTs: Code(s): R79.89 - Other specified abnormal findings of blood chemistry Status: Acute Assessment and Plan: * Related to liver mets. 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 (7) Anemia of chronic disease: Code(s): D63.8 - Anemia in other chronic diseases classified elsewhere Status: Acute Assessment and Plan: * Stable likely related to the underlying cancer. (8) Chronic obstructive pulmonary disease: Code(s): J44.9 - Chronic obstructive pulmonary disease, unspecified Status: Acute Assessment and Plan: * Continue Anoro Ellipta and rescue inhaler as needed. (9) Pneumonia: Code(s): J18.9 - Pneumonia, unspecified organism Status: Acute Assessment and Plan: * He has been started on antibiotics for postobstructive pneumonia. (10) Sepsis: Code(s): A41.9 - Sepsis, unspecified organism Status: Acute Assessment and Plan: * His tachycardia and tachypnea likely related to underlying cancer and postobstructive PNA, his Bp is stable for now, no hypotension. * Lactic acid could be high due to hypoxia and also due to cancer. * BC ordered. Subjective Date/time seen: He is very SOB with minimal physical activity and refers pain all over. 06/07/20 08:36 Review of Systems Review of Systems: All systems reviewed & are unremarkable except as noted in HPI and below
--- NOTE | 2020-06-07 08:36 | PM.IMPN ---
Progress Note: A&P Assessment and Plan (1) Acute hypoxemic respiratory failure: Code(s): J96.01 - Acute respiratory failure with hypoxia Status: Acute Assessment and Plan: Likely due to small cell carcinoma of the lung, PNA and right pleural effusion. (2) Syncope: Qualifiers: Syncope type: unspecified Qualified Code(s): R55 - Syncope and collapse Code(s): R55 - Syncope and collapse Status: Acute Assessment and Plan: Could be a vasovagal syncope. Echo is pending. Despite a very high D-dimer and risk factors for such, no pulmonary embolism was noted on chest CTA. . (3) Small cell carcinoma of lung: Code(s): C34.90 - Malignant neoplasm of unspecified part of unspecified bronchus or lung Status: Acute Assessment and Plan: Mass continues to expand with increasing mets to the liver on imaging. He has a right sided pleural effusion that might be contributing to his SOB, we will have pulmonary to see him and see if he needs a thoracocentesis. Morphine PRN for pain and dyspnea. 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 Dw oncology we will start methylprednisone 125 mg q 8hours if platelets drop below 20 or bleeding will transfuse. (5) Elevated LFTs: Code(s): R79.89 - Other specified abnormal findings of blood chemistry Status: Acute Assessment and Plan: Related to liver mets. 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 (7) Anemia of chronic disease: Code(s): D63.8 - Anemia in other chronic diseases classified elsewhere Status: Acute Assessment and Plan: Stable likely related to the underlying cancer. (8) Chronic obstructive pulmonary disease: Code(s): J44.9 - Chronic obstructive pulmonary disease, unspecified Status: Acute Assessment and Plan: Continue Anoro Ellipta and rescue inhaler as needed. (9) Pneumonia: Code(s): J18.9 - Pneumonia, unspecified organism Status: Acute Assessment and Plan: He has been started on antibiotics for postobstructive pneumonia. (10) Sepsis: Code(s): A41.9 - Sepsis, unspecified organism Status: Acute Assessment and Plan: His tachycardia and tachypnea likely related to underlying cancer and postobstructive PNA, his Bp is stable for now, no hypotension. Lactic acid could be high due to hypoxia and also due to cancer. BC ordered. Subjective Date/time seen: He is very SOB with minimal physical activity and refers pain all over. 06/07/20 08:36 Review of Systems Review of Systems: All systems reviewed & are unremarkable except as noted in HPI and below Exam Const: General: in distress Other: Mild distress due to dyspnea , Ill appearing. Neck: Neck: supple and no JVD Resp: Auscultation: crackles and diminished lung sounds Other: Mild crackles, not using accessory muscles to breath but cannot speak in full sentences. Cardio: Rate: regular rate Rhythm: regular rhythm Other: Tachycardic, no gallops. GI: Auscultation: normal bowel sounds Other: Soft, non tender, no organomegaly. Neuro: Speech: normal speech Motor
[2020-06-07] MEDS: methylPREDNISolone SOD SUCC 125 MG VIAL IV PUSH ×2 (10:06→17:28)
--- NOTE | 2020-06-07 13:39 | WPDANESEPPF ---
Anes - Initial Pre Proc Eval Procedure: Operation Date: 06/07/20 14:30 Proposed Procedures p Placement Of Leidy Cath Under Fluoroscopy - Charli Tobin MD Date/Time: 06/07/20 13:39 Surgeon: Bhavesh Freedman MD Pre Op Diagnosis: Syncope. Patient Data Age: 50 Gender: M Height: 5 ft 7 in Weight: 80.6 kg Last Vital Signs Temp 36.4 C L 06/07/20 08:00 Pulse 113 H 06/07/20 12:00 Resp 20 06/07/20 08:00 BP 125/63 06/07/20 08:00 Pulse Ox 94 06/07/20 11:26 Allergies Allergy/AdvReac Type Severity Reaction Status Date / Time No Known Allergies Allergy Mild Verified 06/06/20 08:27 Home Medications Medication Instructions Recorded Confirmed Type Anoro Ellipta 1 inh INHALATION HS 05/28/20 06/06/20 History albuterol sulfate [Proventil HFA] 2 puff INHALATION QID PRN 05/28/20 06/06/20 History Laboratory Tests 06/06/20 06/06/20 06/06/20 18:50 18:50 18:50 WBC RBC Hgb Hct MCV MCH MCHC RDW Plt Count MPV % Immature Plt Fraction PT INR APTT Fibrinogen Sodium Potassium Chloride Carbon Dioxide Anion Gap BUN Creatinine Estim Creat Clear Calc Estimated GFR Glucose Serum Osmolality Lactic Acid Uric Acid Calcium Phosphorus Magnesium Iron 96 ug/dL ug/dL (49-181) TIBC 245 ug/dL L ug/dL (265-497) % Saturation 39 % % (20-50) Ferritin > 2000.00 ng/mL H ng/mL (17.9-464) Total Bilirubin AST ALT Alkaline Phosphatase C-Reactive Protein Total Protein Albumin Vitamin B12 > 1000.0 pg/mL H pg/mL (239-931) Folate 8.3 ng/mL ng/mL (2.76->20) TSH (Reflex) Free T4 Direct Plt-Bound IgG Ab Pending 06/06/20 06/06/20 06/06/20 21:42 21:42 21:42 WBC RBC Hgb Hct MCV MCH MCHC RDW Plt Count MPV % Immature Plt Fraction PT INR APTT Fibrinogen Sodium 128 mmol/L L mmol/L (137-145) Potassium 4.4 mmol/L mmol/L (3.4-5.0) Chloride 93 mmol/L L mmol/L (98-107) Carbon Dioxide 24 mmol/L mmol/L (22-30) Anion Gap 11 mmol/L mmol/L (8-16) BUN 20 mg/dL mg/dL (9-20) Creatinine 0.90 mg/dL mg/dL (0.7-1.3) Estim Creat Clear Calc 82 ml/min ml/min Estimated GFR > 60 (59 - ) Glucose 123 mg/dL H mg/dL (75-110) Serum Osmolality Pending Lactic Acid Uric Acid Calcium 9.9 mg/dL mg/dL (8.4-10.2) Phosphorus Magnesium 2.1 mg/dL mg/dL (1.6-2.3) Iron TIBC % Saturation Ferritin Total Bilirubin AST ALT Alkaline Phosphatase C-Reactive Protein Total Protein Albumin Vitamin B12 Folate TSH (Reflex) 7.580 uIU/mL H uIU/mL (0.465-4.68) Free T4 Direct Plt-Bound IgG Ab 06/06/20 06/07/20 06/07/20 21:42 02:20 02:20 WBC RBC Hgb Hct MCV MCH MCHC RDW Plt Count MPV % Immature Plt Fraction PT INR APTT Fibrinogen 461 mg/dl mg/dl (215-510) Sod
[2020-06-07] MEDS: SODIUM CHLORIDE 0.9% IV 250 ML 30 ML IV CONT (14:24)
[2020-06-07] MEDS: SODIUM CHLORIDE 0.9% IV 1,000 ML 30 ML IV CONT (14:32)
[2020-06-07] MEDS: ceFAZolin 2 GM/D5W 50 ML 2 GM/50 ML BAG IVPB (14:39)
[2020-06-07] MEDS: HEPARIN SODIUM 1,000 UNITS/ML VIAL 1000 UNITS IV PUSH (15:12)
--- NOTE | 2020-06-07 15:39 | PC.NURSE ---
Addendum entered by Lacey Muñiz RN 06/07/20 15:41: patient went to OR at 1310. Original Note: To OR per bed on 06/07/20 at 1540, IV saline locked. Report given to preop RN.
--- NOTE | 2020-06-07 15:52 | ECHO_ITS ---
Patient Info Name: Sourav Pool Age: 50 years : 1970 Gender: Male Ht: 67 in Wt: 170 lbs BSA: 1.92 m2 HR: 115 bpm BP: 127 / 76 mmHg Heart Rhythm: Tachycardia, Sinus Rhythm Technical Quality: Good Exam Date: 06/07/2020 9:23 AM Exam Location: [facility] Patient Status: Inpatient Admit Date: 06/07/2020 Staff Ordering Physician: Valorie Haines PA-C [employer] Operator Helper: Loco Howell RDCS Attending Provider: Bhavesh Freedman MD Referring Physician: Zaki KEITA; Exam Type: CA echo doppler color flow Study Info Indications R55 - Syncope and collapse Complete two-dimensional, color flow and Doppler transthoracic echocardiogram is performed. Strain analysis performed. History/Risk Factors Syncope; metastatic lung cancer w/ mets to the liver. Summary 1. Complete two-dimensional, color flow and Doppler transthoracic echocardiogram is performed. 2. Left ventricular chamber size, systolic and diastolic function are normal with no regional wall motion abnormalities with an estimated ejection fraction of >70%. Moderate concentric left ventricular hypertrophy. The global longitudinal strain was moderately decreased at -14% suggesting early systolic dysfunction. 3. There is mild tricuspid valve regurgitation. 4. Mild pulmonary hypertension, estimated pulmonary arterial systolic pressure is 40 mmHg. 5. There is trivial pericardial effusion. 6. Large pleural effusion present. 7. Sinus tachycardia. Left Ventricle Left ventricular chamber dimension is normal. Left ventricular systolic function is hyperdynamic, estimated at >70%. There is moderately increased left ventricular wall thickness. Left ventricular septal wall motion is normal. The left ventricular diastolic function is normal. Global longitudinal strain is moderately elevated at 14 %. Left ventricular chamber size, systolic and diastolic function are normal with no regional wall motion abnormalities with an estimated ejection fraction of >70%. Moderate concentric left ventricular hypertrophy. The global longitudinal strain was moderately decreased at -14% suggesting early systolic dysfunction. Right Ventricle Right ventricular chamber dimension is normal. Right ventricular systolic function is normal. Left Atria Left atrial chamber dimension is normal. Right Atria Right atrial chamber dimension is normal. Aortic Valve The aortic valve is trileaflet. There is no aortic valve sclerosis. There is no aortic valve stenosis. There is no aortic valve regurgitation. Pulmonic Valve The pulmonic valve is normal. There is no pulmonic valve stenosis. There is trace pulmonic regurgitation. Mitral Valve The mitral valve has normal leaflets. There is no mitral valve stenosis. There is trace mitral valve regurgitation. Tricuspid Valve The tricuspid valve leaflets are normal. There is no significant tricuspid valve stenosis. There is mild tricuspid valve regurgitation. Mild pulmonary hypertension, estimated pulmonary arterial systolic pressure is 40 mmHg. Pericardium/Pleural The pericardium appears normal. There is trivial pericardial effusion. Inferior Vena Cava Normal inferior vena cava with >50% collapse upon inspiration consistent with Empty right atrial pressure, 5 mmHg. Aorta The aortic root size at the sinus of Valsalva is normal. The prox ascending aorta size is normal. Left Ventricular Outflow Tract
--- NOTE | 2020-06-07 16:00 | PM.PROC ---
Procedure Note - Detailed Date of procedure: 06/07/20 Pre-op diagnosis: small cell lung cancer, inadequate venous access small cell cancer of the right long, inadequate venous access Post-op diagnosis: same Procedure performed: placement left subclavian vortex Port-A-Cath under fluoroscopy Description of procedure: the patient was taken to surgery and placed in a supine position. The head was kept slightly elevated due to his compromised respiratory status. He was on face mask oxygen and care was taken to avoid cautery with oxygen flowing. A wet towel was also placed in the head area to additionally provide prevention from intraoperative fire. The patient had low platelet count prior to surgery. Platelets were infused just prior to the operation. They finished in the operating room before the procedure. The left neck and left subclavian areas were prepped and draped. The proposed incision was marked on the skin just below the left clavicle. Local anesthetic was infiltrated into this area. Incision was made and dissection was carried down through the subcutaneous. Cautery was used for hemostasis. Eventually dissection was carried down through the pectoralis major fascia. A subfascial pocket was created in the lower half of the incision. We then infiltrated additional local under the left clavicle. A single puncture was used to gain access to the left subclavian vein. Unfortunately the guidewire would not pass entirely. We brought in fluoroscopy and it showed the guidewire going up into the left internal jugular vein. On trying to draw the guidewire back it would not go down into the innominate vein. I then had to remove the guidewire and performed a 2nd subclavian vein puncture. This time with the needle in place and using fluoroscopy I was able to guide the wire into the innominate and to the upper aspect of the cava. It appeared there was enough mediastinal adenopathy that cava was deviated. The guidewire would not pass farther. I removed the needle and then passed the introducer over the guidewire and into the innominate. Using this introducer I was able to pass the guidewire into the upper superior vena cava but could not pass it any farther. I then swapped this out for a 0.035 glidewire. I was able to pass the Glidewire down the superior vena cava and eventually into the right atrium. I was then able to advance the introducer along the same path. I removed the Glidewire and replaced it with the standard guidewire that came with the Port-A-Cath kit. The introducer was removed and pressure was held over the exit site. I replaced the introducer and sheath over the guidewire and advanced them into the superior vena cava. The Port-A-Cath had been previously cut to the appropriate length. The introducer and guidewire were removed. The Port-A-Cath was passed through the sheath and on into the superior vena cava. The sheath was then removed. The Port-A-Cath was in the distal superior vena cava right atrial junction. The Port-A-Cath aspirated blood easily and flushed nicely with heparin. I placed a Port-A-Cath into the pocket. It was sutured in place there with 2 0 silk. I then checked the Port-A-Cath multiple times with a Zavala needle and heparin. It aspirated blood and flushed easily with heparin. I recheck the position with C-arm fluoroscopy and it looked to be in good position although some medial deviation due to the mediastinal adenopathy. I then closed the wound with layered closure of 2 0 Vicryl. The skin was closed with subcuticular running 4 0 Monocryl skin suture. I again recheck the Port-A-Cath. It was able to be cannulated, aspirated blood and flushed easily with heparin. The wound was dressed with Exofin surgical adhesive. The patient was awakened and taken to recovery in stable condition. Sponge and needle counts were correct x2. Portable chest x-ray was reviewed in recovery and showed no pneumothorax and the Port-A-Cath tip to
--- NOTE | 2020-06-07 16:41 | WPDONCPN ---
Progress Note: A/P - Additional Plan Extensive stage small-cell lung cancer with liver involvement. Possibly bone involvement as well due to patient anemia and thrombocytopenia. Patient just had MediPort placed. Plan to start chemotherapy as an outpatient next week. Thrombocytopenia. Unclear etiology. Iron B12 came back normal. Platelet antibodies are pending. Recommended starting Solu-Medrol for possible ITP. Pneumonia. Patient is on antibiotic. Hyponatremia. Secondary to SIADH. Fluid restriction of 800 cc recommended. Sodium stable. Anemia. Likely secondary to malignancy and poor nutrition. We will transfuse as needed. - Time Spent With Patient Total time spent is greater than 50% in coordination of care (as documented) at patient's floor/unit and/or counseling patient: 15 - 25 minutes Subjective Interval history: Extensive stage small cell lung cancer Pneumonia Thrombocytopenia Anemia Review of Systems - Review of Systems Patient remains quite tired and fatigued. He denies any bleeding. He denies any fevers and chills. He is visibly short of breath. Exam Vital signs: Temp Pulse Resp BP Pulse Ox 36.2 C L 97 20 133/83 100 06/07/20 15:55 06/07/20 16:25 06/07/20 16:25 06/07/20 16:25 06/07/20 16:25 Narrative: Lungs are clear to auscultation bilaterally Cardiovascular regular rate rhythm no murmurs Abdomen soft nontender nondistended bowel sounds are positive Extremities no edema PN: Objective Data - Labs CBC & Chem 7: 06/07/20 05:38 06/07/20 05:28 Labs: Laboratory Results - last 24 hr 06/06/20 06/06/20 06/06/20 18:50 18:50 21:42 WBC RBC Hgb Hct MCV MCH MCHC RDW Plt Count MPV % Immature Plt Fraction PT INR APTT Fibrinogen Sodium Potassium Chloride Carbon Dioxide Anion Gap BUN Creatinine Estim Creat Clear Calc Estimated GFR Glucose Lactic Acid Uric Acid Calcium Phosphorus Magnesium Iron 96 TIBC 245 L % Saturation 39 Ferritin > 2000.00 H Total Bilirubin AST ALT Alkaline Phosphatase C-Reactive Protein Total Protein Albumin Vitamin B12 > 1000.0 H Folate 8.3 TSH (Reflex) 7.580 H Free T4 Blood Type Antibody Screen 06/06/20 06/06/20 06/07/20 21:42 21:42 02:20 WBC RBC Hgb Hct MCV MCH MCHC RDW Plt Count MPV % Immature Plt Fraction PT INR APTT Fibrinogen 461 Sodium 128 L Potassium 4.4 Chloride 93 L Carbon Dioxide 24 Anion Gap 11 BUN 20 Creatinine 0.90 Estim Creat Clear Calc 82 Estimated GFR > 60 Glucose 123 H Lactic Acid Uric Acid Calcium 9.9 Phosphorus Magnesium 2.1 Iron TIBC % Saturation Ferritin Total Bilirubin AST ALT Alkaline Phosphatase C-Reactive Protein Total Protein Albumin Vitamin B12 Folate TSH (Reflex) Free T4 0.74 L Blood Type Antibody Screen 06/07/20 06/07/20 06/07/20 02:20 02:20 02:20 WBC RBC Hgb Hct MCV MCH MCHC RDW Plt Count MPV % Immature Plt Fraction PT 14.7 INR 1.2 APTT 43.0 H Fibrinogen Sodium 130 L Potassium 4.7 Chloride 95 L Carbon Dioxide 24 Anion Gap 11 BUN 20 Creatinine 0.90 Estim Creat Clear Calc 82 Estimated GFR > 60 Glucose 113 H Lactic Acid 2.5 H Uric Acid Calcium 9.9 Phosphorus Magnesium 2.0 Iron TIBC % Saturation Ferritin Total Bilirubin 0.8 AST 308 H ALT 43 Alkaline Phosphatase 264 H C-Reactive Protein 37.5 H Total Protein 7.0 Albumin 3.4 L Vitamin B12 Folate TSH (Reflex) Free T4 Blood Type Antibody Screen 06/07/20 06/07/20 06/07/20 02:20 05:28 05:38 WBC RBC Hgb Hct MCV MCH MC
--- NOTE | 2020-06-07 17:31 | PC.NURSE ---
Returned from OR per bed on 06/07/20 on 1700. Report received from SATINDER Johnson.
[2020-06-07 18:13] LABS: Add Urine Microscopic? YES; Appearance Urine Cloudy (Clear); Bilirubin Urine Negative (Negative); Blood Urine Negative (Negative); Color Urine Yellow (Yellow); Glucose Urine UA Negative (Negative); Ketones Urine Trace mg/dL (Negative); Leukocyte Esterase Ur Negative LEU/UL (Negative); Mucus Urine Few /lpf; Nitrate Urine Negative (Negative); Protein Urine 1+ mg/dL (Negative); RBC Urine 0-2 /hpf (0-2); Specific Grav Ur 1.027 (1.001-1.035); Urobilinogen Urine Negative mg/dL (<2.0); WBC Urine 0-3 /hpf
[2020-06-07 18:21] LABS: Creatinine Urine 137.6 mg/dL
--- NOTE | 2020-06-07 20:33 | PM.CNPUL ---
Assessment and Plan Assessment and plan (1) Small cell carcinoma of lung: Code(s): C34.90 - Malignant neoplasm of unspecified part of unspecified bronchus or lung Status: Chronic Assessment and Plan: Diagnosed May 19 by bronchoscopy (2) Pleural effusion on right: Code(s): J90 - Pleural effusion, not elsewhere classified Status: Acute Assessment and Plan: Pleural effusion is bloody wit h8 K RBC and low pH; discussed with Dr Suarez and ZEE Dean possibly placing chest tube to andrea and monitor amount of fluid and re-check pH. Will check CXR in am. (3) Acute hypoxemic respiratory failure: Code(s): J96.01 - Acute respiratory failure with hypoxia Status: Acute Assessment and Plan: on low flow O2 (4) COPD (chronic obstructive pulmonary disease): Qualifiers: COPD type: unspecified COPD Qualified Code(s): J44.9 - Chronic obstructive pulmonary disease, unspecified Code(s): J44.9 - Chronic obstructive pulmonary disease, unspecified Status: Acute Assessment and Plan: new diagnosis; he is now able to get meds as his Medicaid in active. (5) History of tobacco abuse: Code(s): Z87.891 - Personal history of nicotine dependence Status: Acute Assessment and Plan: Quit x 1 month History of Present Illness History of Present Illness Consult date: 06/09/20 Requesting physician: Bhavesh Freedman MD Reason for consult: other (shortness of breath) Chief complaint: small cell lung cancer, inadequate venous access Narrative: NEW: Sourav Pool is a 50 yo man recently diagnosed with small cell lung cancer with extensive mets, and is has a port with plans to start chemotherapy next week. He is admitted with increased shortness of breath, is now on steroids and antibiotics for COPD and suspected pneumonia. He is not febrile but he is tachycardic, and is diaphoretic. 06/09 - he had a thoracentesis for the large pleural effusion on the right side. A liter of dark fluid was removed, and he does feel better. He continues to have tachycardia, and the pH is low 7.21. Review of Systems Constitutional: Comments: denies fever ENT: Denies Normal hearing present Respiratory: Respiratory: Reports dyspnea (at rest he appears short of breath) PMFSH Past Medical History Medical History (Updated 06/10/20 @ 08:24 by Karrie Mendoza MD) Anemia of chronic disease Chronic obstructive pulmonary disease History of tobacco abuse He had smoked up to 1.5 packs of cigarettes per day for 20 years and quit 05/06/2020. Hyponatremia Small cell carcinoma of lung Initial diagnosis on 05/18/2020 biopsy. Chest CTA on 06/06/2020 showed a large right upper lobe mass with occlusion of the right upper lobe bronchus and stenosis of bronchus intermedius with mass effect on the superior vena cava and right-sided pulmonary arteries as well as the right side of the heart with airspace opacities consistent with postobstructive pneumonia as well as findings of a malignant moderate size right pleural effusion, chest and abdominal lymphadenopathy, and multiple liver masses consistent with metastatic cancer. Small cell lung cancer Thrombocytopenia Surgical History Surgical History History of bronchoscopy (~05/18/20) Right upper lobe --> small cell carcinoma. Family History Family History Mother Hypertension Cerebrovascular accident Diabetes mellitus Son Shortness of Breath due to welding Social History Social History
[2020-06-08] VITALS (12 sets, daily range): BP systolic 118–142; BP diastolic 32–87; PULSE 90–110; RESP 18–22; TEMP 36.2–37.2; O2SAT 94–99
[2020-06-08] MEDS: LEVALBUTEROL HFA (*SP) 15 GM INHALER 2 PUFF INHALATION ×4 (00:09→21:09)
[2020-06-08 01:48] LABS: Vancomycin Trough 10.1 ug/mL (10.0-20.0)
[2020-06-08] MEDS: methylPREDNISolone SOD SUCC 125 MG VIAL IV PUSH ×3 (02:20→17:42)
[2020-06-08 06:46] LABS: Basophils Percent Auto 0.7 % (0.2-1.2); Eosinophils Absolute Auto 0.1 K/mm3 (0-0.3); Hematocrit 25.2 % (42.0-52.0); Hemoglobin 8.2 g/dL (14.0-18.0); Immature Granulocyte Absolute 0.52 K/mm3 (0.00-0.031); Immature Granulocyte Percent A 8.6 % (0-0.5); Lymphocytes Absolute Auto 2.37 K/mm3 (0.9-3.2); Lymphocytes Percent Auto 39.4 % (18.3-44.2); Mean Corpuscular HGB Conc 32.5 g/dl (32-36); Mean Corpuscular Hemoglobin 27.8 pg (26-34); Mean Corpuscular Volume 85.4 fl (80-100); Mean Platelet Volume 10.4 fl (7.4-10.4); Monocytes Absolute Auto 0.6 K/mm3 (0.1-0.6); Monocytes Percent Auto 9.6 % (2.6-8.5); Neutrophils Absolute Auto 2.5 K/mm3 (1.3-6.7); Neutrophils Percent Auto 40.7 % (45.5-73.1); Nucleated Red Blood Cells Perc 15.8 % (0.0-0.2); Platelet Count Result 79 k/mm3 (150-375); Red Blood Count 2.95 M/mm3 (4.6-6.20); Red Cell Distribution Width 13.5 % (11.5-14.5)
[2020-06-08 07:02] LABS: Alanine Aminotransferase 42 U/L (4-50); Albumin Level 3.6 g/dL (3.5-5.1); Alkaline Phosphatase 292 U/L (38-126); Anion Gap 12 mmol/L (8-16); Aspartate Amino Transferase 323 U/L (17-59); Bilirubin,Total 0.7 mg/dL (0.2-1.3); Blood Urea Nitrogen 23 mg/dL (9-20); Calcium 10.2 mg/dL (8.4-10.2); Carbon Dioxide 25 mmol/L (22-30); Chloride 94 mmol/L (98-107); Estimated CRCL calculation 92 ml/min; Estimated Glomerular Filt Rate > 60; Glucose 131 mg/dL (75-110); Potassium 4.4 mmol/L (3.4-5.0); Sodium 131 mmol/L (137-145)
--- NOTE | 2020-06-08 07:35 | PCOTNOTE ---
Attempted OT evaluation, per RN, pt is asleep and to let rest. Will attempt this afternoon.
--- NOTE | 2020-06-08 07:48 | WPDANESPN ---
Anes - Prog Note Post-Op Date/Time: 06/08/20 07:48 Cardiovascular status: normal Respiratory status: normal Airway patency: baseline Mental status: baseline Post-Op hydration status: normal Vital Signs: Last Vital Signs Temp 36.4 C L 06/08/20 06:00 Pulse 94 06/08/20 06:00 Resp 20 06/08/20 06:00 BP 133/32 L 06/08/20 06:00 Pulse Ox 98 06/08/20 06:00 Pain Score (VAS): 0/10. Patient resting in bed at time of assessment, appears comfortable. Spoke with RN at time of assessment, no additional issues or concerns addressed. I/O: Intake & Output 06/07/20 06/07/20 06/08/20 15:59 23:59 07:59 Intake Total 625 570 700 Output Total 700 400 Balance 625 -130 300 Laboratory Tests 06/08/20 06:40 06/08/20 06:40 06/07/20 06/07/20 06/07/20 13:41 13:57 18:02 WBC RBC Hgb Hct MCV MCH MCHC RDW Plt Count MPV Immature Gran % (Auto) Neut % (Auto) Lymph % (Auto) Wise % (Auto) Eos % (Auto) Baso % (Auto) Lymph # (Auto) Wise # (Auto) Eos # (Auto) Baso # (Auto) Abs Immat Gran (auto) Absolute Neuts (auto) Absolute Nucleated RBC Nucleated RBC % Sodium Potassium Chloride Carbon Dioxide Anion Gap BUN Creatinine Estim Creat Clear Calc Estimated GFR Glucose Calcium Total Bilirubin AST ALT Alkaline Phosphatase Total Protein Albumin Urine Color Yellow Urine Appearance Cloudy H Urine pH 6.0 Ur Specific [place] 1.027 Urine Protein 1+ H Urine Glucose (UA) Negative Urine Ketones Trace Ur Blood (Man) Negative Urine Nitrate Negative Urine Bilirubin Negative Urine Urobilinogen Negative Leukocyte Esterase Rfl Negative Urine RBC 0-2 Urine WBC 0-3 Hyaline Casts 1-2 Urine Mucus Few H Urine Osmolality Urine Creatinine Vancomycin Trough Blood Type O Negative O Positive Antibody Screen Negative 06/07/20 06/07/20 06/08/20 18:02 18:02 01:04 WBC RBC Hgb Hct MCV MCH MCHC RDW Plt Count MPV Immature Gran % (Auto) Neut % (Auto) Lymph % (Auto) Wise % (Auto) Eos % (Auto) Baso % (Auto) Lymph # (Auto) Wise # (Auto) Eos # (Auto) Baso # (Auto) Abs Immat Gran (auto) Absolute Neuts (auto) Absolute Nucleated RBC Nucleated RBC % Sodium Potassium Chloride Carbon Dioxide Anion Gap BUN Creatinine Estim Creat Clear Calc Estimated GFR Glucose Calcium Total Bilirubin AST ALT Alkaline Phosphatase Total Protein Albumin Urine Color Urine Appearance Urine pH Ur Specific [place] Urine Protein Urine Glucose (UA) Urine Ketones Ur Blood (Man) Urine Nitrate Urine Bilirubin Urine Urobilinogen Leukocyte Esterase Rfl Urine RBC Urine WBC Hyaline Casts Urine Mucus Urine Osmolality Pending Urine Creatinine 137.6 Vancomycin Trough 10.1 Blood Type Antibody Screen 06/08/20 06/08/20 06:40 06:40 WBC 6.0 RBC 2.95 L Hgb 8.2 L Hct 25.2 L MCV 85.4 MCH 27.8 MCHC 32.5 RDW 13.5 Plt Count 79 L D MPV 10.4 Immature Gran % (Auto) 8.6 H Neut % (Auto) 40.7 L Lymph % (Auto) 39.4 Wise % (Auto) 9.6 H Eos % (Auto) 1.0 Baso % (Auto) 0.7 Lymph # (Auto) 2.37 Wise # (Auto) 0.6 Eos # (Auto) 0.1 Baso # (Auto) 0.0 Abs Immat Gran (auto) 0.52 H Absolute Neuts (auto) 2.5 Absolute Nucleated RBC 1.0 H Nucleated RBC % 15.8 H Sodium 131 L Potassium 4.4 Chloride 94 L Carbon Dioxide 25 Anion Gap 12 BUN 23 H Creatinine 0.80 Estim Creat Clear Calc 92 Estimated GFR > 60 Glucose 131 H Calcium 10.2 Total Bilirubin 0.7 AST 323 H ALT 42 Alkaline Phosphatase 292 H Total Protein 7.0 Albumin 3.6 Urine Color Urine Appearance Urine pH Ur Specific [place] Ur
--- NOTE | 2020-06-08 08:34 | PM.PNGS ---
Progress Note: A&P Assessment and Plan (1) Small cell carcinoma of lung: Code(s): C34.90 - Malignant neoplasm of unspecified part of unspecified bronchus or lung Status: Chronic (2) Encounter for care related to Port-a-Cath: Code(s): Z45.2 - Encounter for adjustment and management of vascular access device Status: Acute Assessment and Plan: Port-A-Cath site looks good. No significant bleeding, hematoma, or ecchymosis. (3) Thrombocytopenia: Code(s): D69.6 - Thrombocytopenia, unspecified Status: Acute Assessment and Plan: Platelet count still low but significantly better than yesterday at 79,000. (4) Chronic obstructive pulmonary disease: Code(s): J44.9 - Chronic obstructive pulmonary disease, unspecified Status: Acute Assessment and Plan: pulmonary status seems to be approximately the same as preop. Subjective Subjective Date/Time Seen: 06/08/20 08:34 Interval history: No complaints regarding left subclavian Port-A-Cath wound. Exam Chest: Chest palpation & inspection: abnormal inspection of the chest ( Left subclavian Port-A-Cath wound looks good, no significant hematoma), tenderness ( Mild tenderness Port-A-Cath site) and other ( no significant bruising to the area at this time.) Objective Data Vital Signs Vital Signs: Vital Signs - 24 hr 06/07/20 11:26 06/07/20 12:00 06/07/20 13:20 Temperature 37.0 C Pulse Rate 113 H 114 H Respiratory Rate 22 H Blood Pressure 115/79 Pulse Oximetry 94 98 06/07/20 14:24 06/07/20 15:55 06/07/20 16:10 Temperature 36.4 C 36.2 C L Pulse Rate 111 H 95 95 Respiratory Rate 24 H 23 H 24 H Blood Pressure 120/79 115/78 140/78 Pulse Oximetry 95 99 100 06/07/20 16:25 06/07/20 16:40 06/07/20 17:00 Temperature 36.9 C Pulse Rate 97 98 101 H Respiratory Rate 20 15 18 Blood Pressure 133/83 129/80 124/81 Pulse Oximetry 96 97 97 06/07/20 17:15 06/07/20 17:45 06/07/20 18:45 Temperature 36.7 C Pulse Rate 90 87 80 Respiratory Rate 18 18 18 Blood Pressure 125/83 127/74 128/63 Pulse Oximetry 98 99 98 06/07/20 18:53 06/07/20 20:00 06/07/20 20:27 Temperature Pulse Rate 101 H 95 95 Respiratory Rate 20 20 Blood Pressure Pulse Oximetry 97 97 06/07/20 22:00 06/08/20 00:00 06/08/20 00:10 Temperature 37.0 C Pulse Rate 101 H 97 95 Respiratory Rate 22 H Blood Pressure 133/80 Pulse Oximetry 98 06/08/20 02:00 06/08/20 04:00 06/08/20 06:00 Temperature 37.2 C 36.4 C L Pulse Rate 99 90 94 Respiratory Rate 22 H 20 Blood Pressure 142/65 H 133/32 L Pulse Oximetry 98 98 06/08/20 08:00 Temperature 36.8 C Pulse Rate 93 Respiratory Rate 18 Blood Pressure 137/84 Pulse Oximetry 98 Intake/Output Intake/Output: Intake & Output 06/05/20 06/06/20 06/07/20 06/08/20 23:59 23:59 23:59 23:59 Intake Total 1150 1845 700 Output Total 0 1600 400 Balance 1150 245 300 Meds/Results Medications: Active Medications Generic Name Dose Route Start Last Admin Trade Name Freq PRN Reason Stop Dose Admin Acetaminophen 500 mg 06/07/20 16:49 Tylenol Tablet PO Q6H PRN Mild Pain (1-3) or Fever Hydrocodone Bitart/Acetaminophen 1 tab 06/07/20 16:49 06/07/20 23:12 [place] 5-325 Mg PO 1 tab Q4H PRN Administration Pain Rated 4-6 Hydrocodone Bitart/Acetaminophen 1 tab 06/07/20 16:49 [place] 7.5-325 Mg PO Q4H PRN Pain Rated 7-10 Diphenhydramine HCl 25 mg 06/07/20 16:49 Benadryl Inj IV PUSH Q6H PRN Itching Vancomycin HCl 1,250 mg in 250 mls @ 200 mls/hr 06/07/20 02:00 06/08/20 03:35 Vancomycin 1,250 Mg/D5w 250 Ml IVPB Infused Q12H MARVIN Infusion Ceftriaxone Sodium/Dextrose 1 gm in 50 mls @ 100 mls/hr 06/07/20 01:55 06/07/20 21:14 Rocephin 1 Gm/D5w 50 Ml IVPB Infused HS MARVIN Infusion Azithromycin 500 mg in 250 mls @ 250 mls/hr 06/08/20 00:00 06/08/20 00:12 Zithromax IVPB Infused Q
--- NOTE | 2020-06-08 09:22 | PCOTNOTE ---
Attempted OT evaluation this AM. Patient having shortness of breath and eating breakfast. He declined activity at this time. Will continue to attempt.
--- NOTE | 2020-06-08 11:17 | PM.IMPN ---
Progress Note: A&P Assessment and Plan (1) Pneumonia: Code(s): J18.9 - Pneumonia, unspecified organism Status: Acute Assessment and Plan: He has been started on antibiotics for postobstructive pneumonia. Will continue IV Rocephin, vanc and azithromycin Pulmonology has been consulted and appreciate input Monitor for improvement (2) Sepsis: Code(s): A41.9 - Sepsis, unspecified organism Status: Acute Assessment and Plan: His tachycardia and tachypnea likely related to underlying cancer and postobstructive PNA, his Bp is stable for now, no hypotension. Lactic acid could be high due to hypoxia and also due to cancer. BC NGTD x 2 Continue treatment of PNA; suspected source of infection Please see above (3) Acute hypoxemic respiratory failure: Code(s): J96.01 - Acute respiratory failure with hypoxia Status: Acute Assessment and Plan: Likely due to small cell carcinoma of the lung, postobstructive PNA and right pleural effusion. Treatment as noted above Dr. Mendoza has been consulted and appreciate recommendations (4) Small cell carcinoma of lung: Code(s): C34.90 - Malignant neoplasm of unspecified part of unspecified bronchus or lung Status: Chronic Assessment and Plan: Mass continues to expand with increasing mets to the liver on imaging. He has a right sided pleural effusion that might be contributing to his SOB, we will have pulmonary to see him and see if he needs a thoracocentesis. PRN narcotics for pain and dyspnea. Monitor closely Dr. 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 Platelets have improved to 79k This was discussed with oncology and recommended continuing methylprednisone 125 mg q 8hours if platelets drop below 20 or bleeding will transfuse platelets Monitor (6) Syncope: Qualifiers: Syncope type: unspecified Qualified Code(s): R55 - Syncope and collapse Code(s): R55 - Syncope and collapse Status: Acute Assessment and Plan: Possibly vasovagal syncope. Echo results as above. Despite a very high D-dimer and risk factors for such, no pulmonary embolism was noted on chest CTA. Fall precautions Monitor closely PT/OT when clinically improved (7) Elevated LFTs: Code(s): R79.89 - Other specified abnormal findings of blood chemistry Status: Acute Assessment and Plan: Related to liver mets. 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 (9) Anemia of chronic disease: Code(s): D63.8 - Anemia in other chronic diseases classified elsewhere Status: Acute Assessment and Plan: Hgb 8.[address] Ramirez following and appreciate rec. No evidence of active bleeding. Likely related to the underlying cancer. Monitor closely Transfuse PRN (10) Chronic obstructive pulmonary disease: Code(s): J44.9 - Chronic obstructive pulmonary disease, unspecified Status: Acute Assessment and Plan: Continue Anoro Ellipta equivalent per Pharmacy rec as this is non-formulary and patient states he ran out of his meds rescue inhaler as needed.
--- NOTE | 2020-06-08 11:22 | PCPTNOTE ---
Attempted to see pt for PT evaluation. Pt finishing breakfast. Will try again this afternoon.
[2020-06-08] MEDS: MORPHINE SULFATE 4 MG/ML INJ 2 MG IV PUSH (16:25)
--- NOTE | 2020-06-08 18:20 | WPDONCPN ---
Progress Note: A/P - Additional Plan Extensive stage small-cell lung cancer with a involvement. Med Sineff has been placed. Plan to start chemotherapy next week after the discharge. Thrombocytopenia. Platelet count has improved with steroid. Will continue steroid at the current dose. Patient will be discharged home on prednisone 60 mg b.i.d.. Pneumonia. Patient is clinically improving. He will continue antibiotic. Hyponatremia. Secondary to SIADH. Continue fluid restriction. - Time Spent With Patient Total time spent is greater than 50% in coordination of care (as documented) at patient's floor/unit and/or counseling patient: 15 - 25 minutes Subjective Interval history: Extensive stage small cell lung cancer Pneumonia Thrombocytopenia Anemia Review of Systems - Review of Systems Patient looks slightly better today with improvement in shortness of breath. He remains quite tired and fatigued. He denies any chest pain. Denies any cough and fever. Exam Vital signs: Margi Hunter. Assessment of coma and impaired consciousness. A practical scale. Lancet 1974; 2:81-4. Narrative: Lungs are clear to auscultation bilaterally Cardiovascular regular rate rhythm no murmurs Abdomen soft nontender nondistended Extremities no edema PN: Objective Data - Labs CBC & Chem 7: 06/08/20 06:40 06/08/20 06:40 Labs: Laboratory Results - last 24 hr 06/07/20 06/08/20 06/08/20 18:02 01:04 06:40 WBC 6.0 RBC 2.95 L Hgb 8.2 L Hct 25.2 L MCV 85.4 MCH 27.8 MCHC 32.5 RDW 13.5 Plt Count 79 L D MPV 10.4 Immature Gran % (Auto) 8.6 H Neut % (Auto) 40.7 L Lymph % (Auto) 39.4 [place] % (Auto) 9.6 H Eos % (Auto) 1.0 Baso % (Auto) 0.7 Lymph # (Auto) 2.37 [place] # (Auto) 0.6 Eos # (Auto) 0.1 Baso # (Auto) 0.0 Abs Immat Gran (auto) 0.52 H Absolute Neuts (auto) 2.5 Absolute Nucleated RBC 1.0 H Nucleated RBC % 15.8 H Sodium Potassium Chloride Carbon Dioxide Anion Gap BUN Creatinine Estim Creat Clear Calc Estimated GFR Glucose Calcium Total Bilirubin AST ALT Alkaline Phosphatase Total Protein Albumin Urine Creatinine 137.6 Vancomycin Trough 10.1 06/08/20 06:40 WBC RBC Hgb Hct MCV MCH MCHC RDW Plt Count MPV Immature Gran % (Auto) Neut % (Auto) Lymph % (Auto) [place] % (Auto) Eos % (Auto) Baso % (Auto) Lymph # (Auto) [place] # (Auto) Eos # (Auto) Baso # (Auto) Abs Immat Gran (auto) Absolute Neuts (auto) Absolute Nucleated RBC Nucleated RBC % Sodium 131 L Potassium 4.4 Chloride 94 L Carbon Dioxide 25 Anion Gap 12 BUN 23 H Creatinine 0.80 Estim Creat Clear Calc 92 Estimated GFR > 60 Glucose 131 H Calcium 10.2 Total Bilirubin 0.7 AST 323 H ALT 42 Alkaline Phosphatase 292 H Total Protein 7.0 Albumin 3.6 Urine Creatinine Vancomycin Trough
[2020-06-08] MEDS: SALMETEROL XINAFOATE 50 MCG DISKUS 1 PUFF INHALATION (21:08)
[2020-06-09] VITALS (15 sets, daily range): BP systolic 133–165; BP diastolic 83–107; PULSE 93–110; RESP 18–30; TEMP 36.2–36.6; O2SAT 93–97
[2020-06-09] MEDS: methylPREDNISolone SOD SUCC 125 MG VIAL IV PUSH ×3 (01:50→17:50)
[2020-06-09] MEDS: LEVALBUTEROL HFA (*SP) 15 GM INHALER 2 PUFF INHALATION ×4 (02:35→20:27)
[2020-06-09 06:17] LABS: Hematocrit 24.6 % (42.0-52.0); Hemoglobin 7.9 g/dL (14.0-18.0); Immature Platelet Fraction Pct 4.4 % (0.9-11.2); Mean Corpuscular HGB Conc 32.1 g/dl (32-36); Mean Corpuscular Hemoglobin 27.6 pg (26-34); Mean Platelet Volume 10.3 fl (7.4-10.4); Platelet Count Result 66 k/mm3 (150-375); Red Blood Count 2.86 M/mm3 (4.6-6.20); Red Cell Distribution Width 13.6 % (11.5-14.5)
[2020-06-09 06:29] LABS: Alanine Aminotransferase 90 U/L (4-50); Albumin Level 3.6 g/dL (3.5-5.1); Alkaline Phosphatase 329 U/L (38-126); Anion Gap 11 mmol/L (8-16); Aspartate Amino Transferase 378 U/L (17-59); Bilirubin,Total 0.7 mg/dL (0.2-1.3); Blood Urea Nitrogen 32 mg/dL (9-20); Calcium 10.3 mg/dL (8.4-10.2); Carbon Dioxide 26 mmol/L (22-30); Chloride 95 mmol/L (98-107); Estimated CRCL calculation 92 ml/min; Estimated Glomerular Filt Rate > 60; Glucose 133 mg/dL (75-110); Magnesium 2.4 mg/dL (1.6-2.3); Potassium 4.3 mmol/L (3.4-5.0); Sodium 132 mmol/L (137-145)
[2020-06-09 07:48] LABS: Band Neutrophils Percent 5 % (0-6); Eosinophils Absolute Manual 0.07 K/mm3 (0.02-0.5); Eosinophils Percent Manual 1 % (0-4); Lymphocytes Absolute Manual 3.78 K/mm3 (1.1-4.5); Metamyelocytes Percent 3 %; Monocytes Absolute Manual 0.21 K/mm3 (0.1-0.90); Monocytes Percent Manual 3 % (3-9); Neutrophils Absolute Manual 2.73 K/mm3 (1.3-6.7); Neutrophils Percent Manual 34 % (46-73); Nucleated Red Blood Cells 17 %; Total Cells Counted 100
--- NOTE | 2020-06-09 07:49 | PM.PNGS ---
Progress Note: A&P Assessment and Plan (1) Small cell carcinoma of lung: Code(s): C34.90 - Malignant neoplasm of unspecified part of unspecified bronchus or lung Status: Chronic Assessment and Plan: Feeling better, would like to go home (2) Encounter for care related to Port-a-Cath: Code(s): Z45.2 - Encounter for adjustment and management of vascular access device Status: Acute Assessment and Plan: Port-A-Cath wound healing well. Should be ready for use at any time. Okay to discharge at any time from my perspective. Does not need surgical follow-up. I will sign off. (3) Thrombocytopenia: Code(s): D69.6 - Thrombocytopenia, unspecified Status: Acute Assessment and Plan: Better with steroids. Still above 50,000 although lower than yesterday. Platelet count today is 66,000. no sign of bleeding. Subjective Subjective Date/Time Seen: 06/09/20 07:49 Post Op day: 2 Patient reports: feels better and afebrile Exam Chest: Chest palpation & inspection: abnormal inspection of the chest (left subclavian portacath in place, wound healing well. No hematoma) other (No significant swelling or bruising. Portacath easy to palpate. ) Objective Data Vital Signs Vital Signs: Vital Signs - 24 hr 06/08/20 08:00 06/08/20 09:05 06/08/20 12:00 Temperature 36.8 C 36.2 C L Pulse Rate 92 102 H 101 H Respiratory Rate 18 20 20 Blood Pressure 137/84 137/82 Pulse Oximetry 98 94 99 06/08/20 16:00 06/08/20 20:00 06/08/20 21:15 Temperature 36.7 C Pulse Rate 100 98 98 Respiratory Rate 20 20 20 Blood Pressure 118/85 Pulse Oximetry 96 95 95 06/08/20 22:00 06/09/20 00:00 06/09/20 02:00 Temperature 36.6 C 36.2 C L Pulse Rate 101 H 96 93 Respiratory Rate 20 20 Blood Pressure 134/87 133/89 Pulse Oximetry 97 97 06/09/20 04:00 06/09/20 06:00 Temperature 36.2 C L Pulse Rate 93 98 Respiratory Rate 20 Blood Pressure 144/85 H Pulse Oximetry 95 Intake/Output Intake/Output: Intake & Output 06/06/20 06/07/20 06/08/20 06/09/20 23:59 23:59 23:59 23:59 Intake Total 1150 1845 1820 540 Output Total 0 1600 400 300 Balance 0771 226 7934 240 Meds/Results Medications: Active Medications Generic Name Dose Route Start Last Admin Trade Name Freq PRN Reason Stop Dose Admin Acetaminophen 500 mg 06/07/20 16:49 Tylenol Tablet PO Q6H PRN Mild Pain (1-3) or Fever Hydrocodone Bitart/Acetaminophen 1 tab 06/07/20 16:49 06/07/20 23:12 [place] 5-325 Mg PO 1 tab Q4H PRN Administration Pain Rated 4-6 Hydrocodone Bitart/Acetaminophen 1 tab 06/07/20 16:49 06/08/20 20:59 [place] 7.5-325 Mg PO 1 tab Q4H PRN Administration Pain Rated 7-10 Diphenhydramine HCl 25 mg 06/07/20 16:49 Benadryl Inj IV PUSH Q6H PRN Itching Vancomycin HCl 1,250 mg in 250 mls @ 200 mls/hr 06/07/20 02:00 06/09/20 03:05 Vancomycin 1,250 Mg/D5w 250 Ml IVPB Infused Q12H MARVIN Infusion Ceftriaxone Sodium/Dextrose 1 gm in 50 mls @ 100 mls/hr 06/07/20 01:55 06/08/20 21:31 Rocephin 1 Gm/D5w 50 Ml IVPB Infused HS MARVIN Infusion Azithromycin 500 mg in 250 mls @ 250 mls/hr 06/08/20 00:00 06/09/20 00:35 Zithromax IVPB Infused Q24H MARVIN Infusion Levalbuterol HCl 2 puff 06/08/20 20:00 06/09/20 02:35 Xopenex Hfa INHALATION 2 puff Q6HRT MARVIN Administration Methylprednisolone Sodium Succinate 125 mg 06/07/20 09:00 06/09/20 01:50 Solu-Medrol IV PUSH 125 mg Q8H MARVIN Administration Morphine Sulfate 2 mg 06/07/20 08:32 Morphine Sulfate Inj IV PUSH Q4H PRN Dyspnea Morphine Sulfate 1 mg 06/07/20 16:49 Morphine Sulfate Inj IV PUSH Q2H PRN Pain Rated 4-6 Morphine Sulfate 2 mg 06/07/20 16:49 06/08/20 16:25 Morphine Sulfate Inj IV PUSH 2 mg Q2H PRN Administration Pain Rated 7-10 Ondansetron HCl 4 mg 06/06/20 10:44 Zofran Inj IV PUSH Q4H PRN [place]
[2020-06-09 07:50] LABS: Platelet Estimate Decreased (Adequate)
--- NOTE | 2020-06-09 08:28 | P.PNIM_ITS ---
Progress Note: A&P Assessment and Plan (1) Pneumonia: Code(s): J18.9 - Pneumonia, unspecified organism Status: Acute Assessment and Plan: He has been started on antibiotics for postobstructive pneumonia. * Will continue IV Rocephin, vanc and azithromycin * Pulmonology has been consulted and appreciate input * Monitor for improvement (2) Sepsis: Code(s): A41.9 - Sepsis, unspecified organism Status: Acute Assessment and Plan: His tachycardia and tachypnea likely related to underlying cancer and postobstr uctive PNA, his Bp is stable for now, no hypotension. Lactic acid could be high due to hypoxia and also due to cancer. BC NGTD x 2 * Continue treatment of PNA; suspected source of infection * Please see above (3) Acute hypoxemic respiratory failure: Code(s): J96.01 - Acute respiratory failure with hypoxia Status: Acute Assessment and Plan: Likely due to small cell carcinoma of the lung, postobstructive PNA and right pleural effusion. * Treatment as noted above * Will discuss with Pulmonology and IR to see if thoracentesis is appropriate/feasible in this gentleman with platelets at 66k today * Dr. Mendoza has been consulted and appreciate recommendations (4) Small cell carcinoma of lung: Code(s): C34.90 - Malignant neoplasm of unspecified part of unspecified bronchus or lung Status: Chronic Assessment and Plan: Mass continues to expand with increasing mets to the liver on imaging. He has a right sided pleural effusion that might be contributing to his SOB. * PRN narcotics for pain and dyspnea. * Monitor closely * Dr. 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 Platelets today are 66k * This was discussed with oncology and recommended continuing methylprednisone 125 mg q 8hours if platelets drop below 20 or bleeding will transfuse plate lets * Patient to be discharged on 60 mg predinisone BID once stable for discharge per Oncology rec * Monitor (6) Syncope: Qualifiers: Syncope type: unspecified Qualified Code(s): R55 - Syncope and collapse Code(s): R55 - Syncope and collapse Status: Acute Assessment and Plan: Possibly vasovagal syncope. Echo results as above. Despite a very high D-dimer and risk factors for such, no pulmonary embolism was noted on chest CTA. * Fall precautions * Monitor closely * PT/OT when clinically improved (7) Elevated LFTs: Code(s): R79.89 - Other specified abnormal findings of blood chemistry Status: Acute Assessment and Plan: * Related to liver mets. 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 132 today * Continue fluid restriction at 1,000 ml per day. (9) Anemia of chronic disease: Code(s): D63.8 - Anemia in other chronic diseases classified elsewhere Status: Acute Assessment and Plan:
--- NOTE | 2020-06-09 08:28 | PM.IMPN ---
Progress Note: A&P Assessment and Plan (1) Pneumonia: Code(s): J18.9 - Pneumonia, unspecified organism Status: Acute Assessment and Plan: He has been started on antibiotics for postobstructive pneumonia. Will continue IV Rocephin, vanc and azithromycin Pulmonology has been consulted and appreciate input Monitor for improvement (2) Sepsis: Code(s): A41.9 - Sepsis, unspecified organism Status: Acute Assessment and Plan: His tachycardia and tachypnea likely related to underlying cancer and postobstructive PNA, his Bp is stable for now, no hypotension. Lactic acid could be high due to hypoxia and also due to cancer. BC NGTD x 2 Continue treatment of PNA; suspected source of infection Please see above (3) Acute hypoxemic respiratory failure: Code(s): J96.01 - Acute respiratory failure with hypoxia Status: Acute Assessment and Plan: Likely due to small cell carcinoma of the lung, postobstructive PNA and right pleural effusion. Treatment as noted above Will discuss with Pulmonology and IR to see if thoracentesis is appropriate/feasible in this gentleman with platelets at 66k today Dr. Mendoza has been consulted and appreciate recommendations (4) Small cell carcinoma of lung: Code(s): C34.90 - Malignant neoplasm of unspecified part of unspecified bronchus or lung Status: Chronic Assessment and Plan: Mass continues to expand with increasing mets to the liver on imaging. He has a right sided pleural effusion that might be contributing to his SOB. PRN narcotics for pain and dyspnea. Monitor closely Dr. 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 Platelets today are 66k This was discussed with oncology and recommended continuing methylprednisone 125 mg q 8hours if platelets drop below 20 or bleeding will transfuse platelets Patient to be discharged on 60 mg predinisone BID once stable for discharge per Oncology rec Monitor (6) Syncope: Qualifiers: Syncope type: unspecified Qualified Code(s): R55 - Syncope and collapse Code(s): R55 - Syncope and collapse Status: Acute Assessment and Plan: Possibly vasovagal syncope. Echo results as above. Despite a very high D-dimer and risk factors for such, no pulmonary embolism was noted on chest CTA. Fall precautions Monitor closely PT/OT when clinically improved (7) Elevated LFTs: Code(s): R79.89 - Other specified abnormal findings of blood chemistry Status: Acute Assessment and Plan: Related to liver mets. 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 132 today Continue fluid restriction at 1,000 ml per day. (9) Anemia of chronic disease: Code(s): D63.8 - Anemia in other chronic diseases classified elsewhere Status: Acute Assessment and Plan: Hgb 7.[address] Ramirez following and appreciate rec. No evidence of active bleeding. Likely related to the underlying cancer. Monitor closely Transfuse PRN (10) Chronic obstructive pulmonary disease: Code(s): J44.9 - Chronic obstructive pulmonary disease, unspecified Status: Acute Assessment and Plan: Continue Anoro Ellipta equiv
[2020-06-09] MEDS: SALMETEROL XINAFOATE 50 MCG DISKUS 1 PUFF INHALATION ×2 (08:31→20:26)
[2020-06-09 08:51] LABS: INR 1.2; Prothrombin Time 14.8 Seconds (11.1-14.7)
[2020-06-09 08:52] LABS: Partial Thromboplastin Time 30.7 SECONDS (22.3-36.8)
--- NOTE | 2020-06-09 11:10 | PC.NURSE ---
PT to xray via stretcher
[2020-06-09 11:49] LABS: Amylase 57 U/L (30-110)
--- NOTE | 2020-06-09 11:55 | PC.NURSE ---
PT returned from xray via stretcher
[2020-06-09 12:16] LABS: pH Pleural Fluid 7.214 (7.210-7.500)
[2020-06-09 12:21] LABS: Albumin Level 3.6 g/dL (3.5-5.1); Bilirubin,Total 0.7 mg/dL (0.2-1.3); Cholesterol 213 mg/dL (0-200); Glucose 138 mg/dL (75-110); Triglycerides 360 mg/dL (<150)
[2020-06-09 12:50] LABS: Pleural fluid source Pleural fluid
[2020-06-09 12:51] LABS: Appearance Pleural Fluid Bloody (Clear); Color Pleural Fluid Brown (Colorless)
[2020-06-09 12:53] LABS: Lymphocytes Pleural Fluid 51 %; Macrophages Pleural Fluid 16 %; Mesothelial Cells Pleural Flui 5 %; Neutrophils Pleural Fluid 28 % (0-25); Nucleated Cell Pleural Fluid 156 /uL (0-1000); RBC Pleural Fluid 8387 /uL (0-0)
[2020-06-09] MEDS: MORPHINE SULFATE 4 MG/ML INJ 2 MG IV PUSH (17:50)
[2020-06-09 22:39] LABS: Lactate Dehydrogenase 8559 U/L (313-618)
[2020-06-10] VITALS (9 sets, daily range): BP systolic 132–149; BP diastolic 80–87; PULSE 88–106; RESP 20; TEMP 36.1–36.6; O2SAT 92–99
[2020-06-10] MEDS: methylPREDNISolone SOD SUCC 125 MG VIAL IV PUSH ×2 (00:40→08:46)
[2020-06-10] MEDS: LEVALBUTEROL HFA (*SP) 15 GM INHALER 2 PUFF INHALATION ×3 (02:44→13:11)
[2020-06-10] MEDS: MORPHINE SULFATE 2 MG/ML INJ IV PUSH (03:50)
[2020-06-10 05:48] LABS: Osmolality, Urine 626 mOsm/kg (50-1200)
[2020-06-10 06:50] LABS: Alanine Aminotransferase 132 U/L (4-50); Albumin Level 3.7 g/dL (3.5-5.1); Alkaline Phosphatase 321 U/L (38-126); Anion Gap 11 mmol/L (8-16); Aspartate Amino Transferase 406 U/L (17-59); Bilirubin,Total 0.7 mg/dL (0.2-1.3); Blood Urea Nitrogen 37 mg/dL (9-20); Carbon Dioxide 26 mmol/L (22-30); Chloride 97 mmol/L (98-107); Estimated CRCL calculation 82 ml/min; Estimated Glomerular Filt Rate > 60; Glucose 128 mg/dL (75-110); Magnesium 2.6 mg/dL (1.6-2.3); Potassium 4.3 mmol/L (3.4-5.0); Sodium 134 mmol/L (137-145)
[2020-06-10 06:55] LABS: Hematocrit 24.1 % (42.0-52.0); Hemoglobin 7.7 g/dL (14.0-18.0); Immature Platelet Fraction Pct 3.9 % (0.9-11.2); Mean Corpuscular Hemoglobin 27.5 pg (26-34); Mean Corpuscular Volume 86.1 fl (80-100); Mean Platelet Volume 10.7 fl (7.4-10.4); Platelet Count Result 49 k/mm3 (150-375); Red Cell Distribution Width 13.7 % (11.5-14.5); White Blood Count 7.7 K/mm3 (4.5-10.0)
[2020-06-10 07:11] LABS: INR 1.2; Prothrombin Time 14.4 Seconds (11.1-14.7)
[2020-06-10 07:12] LABS: Partial Thromboplastin Time 29.9 SECONDS (22.3-36.8)
[2020-06-10 07:26] LABS: Band Neutrophils Percent 6 % (0-6); Lymphocytes Absolute Manual 3.23 K/mm3 (1.1-4.5); Monocytes Percent Manual 4 % (3-9); Neutrophils Absolute Manual 4.15 K/mm3 (1.3-6.7); Neutrophils Percent Manual 48 % (46-73); Nucleated Red Blood Cells 14 %; Platelet Estimate Decreased (Adequate); Total Cells Counted 100
[2020-06-10 07:28] LABS: Polychromasia 1+ (NORMAL)
[2020-06-10] MEDS: SALMETEROL XINAFOATE 50 MCG DISKUS 1 PUFF INHALATION (08:26)
--- NOTE | 2020-06-10 10:10 | PM.PNPUL ---
Progress Note: A&P Assessment and Plan (1) Pleural effusion on right: Code(s): J90 - Pleural effusion, not elsewhere classified Status: Acute Assessment and Plan: Pleural effusion is bloody with 8k RBC and low pH; discussed with Dr Suarez and ZEE Dean possibly placing chest tube to drain and monitor amount of fluid and re-check pH. CXR today is still consistent with significant pleural effusion. (2) Small cell carcinoma of lung: Code(s): C34.90 - Malignant neoplasm of unspecified part of unspecified bronchus or lung Status: Chronic Assessment and Plan: Diagnosed May 19 by bronchoscopy (3) Acute hypoxemic respiratory failure: Code(s): J96.01 - Acute respiratory failure with hypoxia Status: Acute Assessment and Plan: on low flow O2 4L with sat 92-97%; needs to have walk study before going home (4) COPD (chronic obstructive pulmonary disease): Qualifiers: COPD type: unspecified COPD Qualified Code(s): J44.9 - Chronic obstructive pulmonary disease, unspecified Code(s): J44.9 - Chronic obstructive pulmonary disease, unspecified Status: Acute Assessment and Plan: new diagnosis; he is now able to get meds as his Medicaid in active. (5) History of tobacco abuse: Code(s): Z87.891 - Personal history of nicotine dependence Status: Acute Assessment and Plan: Quit x 1 month Subjective Date/time seen: 06/10/20 10:10 This 50 yo man is seen in follow up for small cell lung cancer with large right pleural effusion, tapped yesterday with low pH 7.21; CXR today shows persistent effusion. He is agreeable to the chest tube. CXR 06/10/2020 Extensive opacification of the right hemithorax with small amount of residual aerated lung in the right upper lung zone. This likely represents interval enlargement of a moderate to large right pleural effusion with underlying likely combination of malignancy, atelectasis, pneumonia and/or asymmetric pulmonary edema. Review of Systems ENT: Denies Normal hearing present Cardiovascular: Cardiovascular: Reports dyspnea (at rest he appears short of breath) Respiratory: Respiratory: Reports dyspnea (at rest he appears short of breath) Neurologic: Denies Normal hearing present Exam Const: General: no acute distress (mild increase in resp rate, diaphoresis; 4 L/min sat 94%), alert and tired appearing HENMT: Head: normal to inspection (abrasion over left forehead) Ears: hearing grossly impaired General nose exam: Normal external nose present Face and sinus: normal facial exam Mouth: Yes Normal oral and palatal mucosa present Throat: posterior oropharynx normal Eyes: General: appearance normal, both eyes and all related structures Neck: Neck: no lymphadenopathy Chest: Chest palpation & inspection: normal inspection of the chest Resp: Auscultation: diminished lung sounds on the right Cardio: Rate: tachycardic Rhythm: regular rhythm Heart sounds: S1 normal heart sound present, S2 normal heart sound present, no gallops and no murmurs GI: Auscultation: normal bowel sounds Skin: General skin exam: normal color Neuro: Cranial nerves: No Normal hearing present Extrem: General: no clubbing, cyanosis or edema Psych: Mental Status: mental status grossly normal Objective Data Vital Signs Vital Signs: Vital Signs - 24 hr 06/09/20 12:00 06/09/20 12:55 06/09/20 14:00 Temperature 36.4 C L Pulse Rate 104 H 110 H 102 H Respiratory Rate 30 H 20 Blood Pressure 154/94 H 139/83 Pulse Oximetry 94 97 06/09/20 16:00 06/09/20 18:00 06/09/20 20:00 Temper
[2020-06-10] MEDS: MORPHINE SULFATE 15 MG TABCR PO (11:09)
--- NOTE | 2020-06-10 11:25 | PM.IMPN ---
Progress Note: A&P Assessment and Plan (1) Pleural effusion on right: Code(s): J90 - Pleural effusion, not elsewhere classified Status: Acute Assessment and Plan: Patient had Thoracentesis yesterday of right pleural effusion which yielded 1L dark maroon colored fluid; pH 7.214, RBC 8387, neut 28%, Lymph 51%. Gram stain mod WBC, no organisms. Cultures pending. Patient noted improvement yesterday, but now has similar symptoms prior to procedure. CXR today read Extensive opacification of the right hemithorax with small amount of residual aerated lung in the right upper lung zone. This likely represents interval enlargement of a moderate to large right pleural effusion with underlying likely combination of malignancy, atelectasis, pneumonia and/or asymmetric pulmonary edema. . Spoke with Dr. Mendoza who recommends transfer to [facility] for possible chest tube after discussing with Dr. Ramirez. Discussed with patient and daughter (with permission) and agreed to attempt for transfer to [facility] transfer line contacted; awaiting call back (2) Pneumonia: Code(s): J18.9 - Pneumonia, unspecified organism Status: Acute Assessment and Plan: He has been started on antibiotics for postobstructive pneumonia. Will continue IV Rocephin, vanc and azithromycin Pulmonology has been consulted and appreciate input Monitor for improvement (3) Sepsis: Code(s): A41.9 - Sepsis, unspecified organism Status: Acute Assessment and Plan: His tachycardia and tachypnea likely related to underlying cancer and postobstructive PNA, his Bp is stable for now, no hypotension. Lactic acid could be high due to hypoxia and also due to cancer. BC NGTD x 2 Continue treatment of PNA; suspected source of infection Please see above (4) Acute hypoxemic respiratory failure: Code(s): J96.01 - Acute respiratory failure with hypoxia Status: Acute Assessment and Plan: Likely due to small cell carcinoma of the lung, postobstructive PNA and right pleural effusion. Treatment as noted above Dr. Mendoza has been consulted and appreciate recommendations (5) Small cell carcinoma of lung: Code(s): C34.90 - Malignant neoplasm of unspecified part of unspecified bronchus or lung Status: Chronic Assessment and Plan: Mass continues to expand with increasing mets to the liver on imaging. He has a right sided pleural effusion that might be contributing to his SOB. PRN narcotics for pain and dyspnea. Monitor closely Dr. 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 Platelets today are 49k This was discussed with oncology and recommended continuing methylprednisone 125 mg q 8hours if platelets drop below 20 or bleeding will transfuse platelets Patient to be discharged on 60 mg predinisone BID once stable for discharge per Oncology rec Monitor (7) Syncope: Qualifiers: Syncope type: unspecified Qualified Code(s): R55 - Syncope and collapse Code(s): R55 - Syncope and collapse Status: Acute Assessment and Plan: Possibly vasovagal syncope. Echo results as above. Despite a very high D-dimer and risk factors for such, no pulmonary embolism was noted on chest CTA. Fall precautions Monitor closely PT/OT when clinically improved (8) Elevated LFTs: Code(s): R79.89 - Other specified abnormal findings of blood chemistry Status: Acute Assess
--- NOTE | 2020-06-10 12:12 | PCPTNOTE ---
Attempted therapy session. Pt declined stating, I just finished my breakfast and am exhausted. I also may be transferring today and just do not have the strength right now to do anything. Reassured Pt and spoke with him of the importance of therapy. Pt continued to decline treatment. Explained to the Pt, we can attempt therapy again if he is available and feeling up to it. Continue per POC.
--- NOTE | 2020-06-10 14:20 | PCPTNOTE ---
Attempted therapy session again. Pt was sleeping upon entering room. Upon waking Pt requested to just rest due to lack of energy. Pt also again stated he would probably be transferring and just does not have the energy to work. Will continue with POC tomorrow if Pt has not transferred.
--- NOTE | 2020-06-10 15:25 | PCOTNOTE ---
Attempted to see Pt this PM, however pt was not available. RN stated that Pt was just transferred to another medical facility for a procedure. Will continue tx per POC frequency and duration if appropriate.
--- NOTE | 2020-06-10 18:58 | PM.TDS ---
Transfer Discharge Sum: Prov Provider Date of admission: 06/07/20 10:12 Primary care physician: UNKNOWN,DOCTOR Admitting clinician: Bhavesh Freedman MD Accepting Transfer Physician Dr. Potter, Hospitalist at [facility] Consults: 06/06/20 10:48 Consult to Physician Routine Comment: Consulting Provider: Evan Ramirez Reason for consultation: Lung cancer Has provider been notified: Yes 06/07/20 Consult to Physician Routine Comment: Spoke with Dr Mendoza @ 1034 ([facility]) Consulting Provider: Karrie Mendoza content architect/MD group to consult: Pulmonary Reason for consultation: SOB, lung CA Has provider been notified: Yes DS: Admitting Diagnosis Admitting Diagnosis Admitting Diagnosis: small cell lung cancer, inadequate venous access DS: Discharge Diagnosis Discharge Diagnosis (1) Pleural effusion on right: Code(s): J90 - Pleural effusion, not elsewhere classified Status: Acute Assessment and Plan: Patient had Thoracentesis yesterday of right pleural effusion which yielded 1L dark maroon colored fluid; pH 7.214, RBC 8387, neut 28%, Lymph 51%. Gram stain mod WBC, no organisms. Cultures pending. Patient noted improvement yesterday, but now has similar symptoms prior to procedure. CXR today read Extensive opacification of the right hemithorax with small amount of residual aerated lung in the right upper lung zone. This likely represents interval enlargement of a moderate to large right pleural effusion with underlying likely combination of malignancy, atelectasis, pneumonia and/or asymmetric pulmonary edema. . Spoke with Dr. Mendoza who recommends transfer to [facility] for possible chest tube after discussing with Dr. Ramirez. Discussed with patient and daughter (with permission) and agreed to attempt for transfer to [facility] Case discussed with Dr. Potter, hospitalist with [facility], who has agreed to accept the patient in transfer Patient transferred at roughly 15:30 on 06/10/20 (2) Pneumonia: Code(s): J18.9 - Pneumonia, unspecified organism Status: Acute Assessment and Plan: He has been started on antibiotics for postobstructive pneumonia. Will continue IV Rocephin, vanc and azithromycin Pulmonology has been consulted and appreciate input Monitor for improvement (3) Sepsis: Code(s): A41.9 - Sepsis, unspecified organism Status: Acute Assessment and Plan: His tachycardia and tachypnea likely related to underlying cancer and postobstructive PNA, his Bp is stable for now, no hypotension. Lactic acid could be high due to hypoxia and also due to cancer. BC NGTD x 2 Continue treatment of PNA; suspected source of infection Please see above (4) Acute hypoxemic respiratory failure: Code(s): J96.01 - Acute respiratory failure with hypoxia Status: Acute Assessment and Plan: Likely due to small cell carcinoma of the lung, postobstructive PNA and right pleural effusion. Treatment as noted above Dr. Mendoza has been consulted and appreciate recommendations (5) Small cell carcinoma of lung: Code(s): C34.90 - Malignant neoplasm of unspecified part of unspecified bronchus or lung Status: Chronic Assessment and Plan: Mass continues to expand with increasing mets to the liver on imaging. He has a right sided pleural effusion that might be contributing to his SOB. PRN narcotics for pain and dyspnea. Monitor closely Dr. 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 Platelets today are 49k This was discussed with oncol
[2020-06-13 00:42] LABS: Amylase, Pleural Fluid 19 U/L
[2020-06-13 06:20] LABS: Glucose Pleural Fluid 70 mg/dL; LDH Pleural Fluid 6797 U/L; Total Protein Pleural Fluid 4.7 g/dL
[2020-06-14 07:42] LABS: Albumin Pleural Fluid 2.2 g/dL
== END 2020-06-10 14:55 | disposition short-term general hospital (02) | DRG 720 ==
LOC: ANHED 10:45 → ANH3MEDSUR 11:12
PROVIDERS: Hospitalist; Internal Medicine Hematology & Oncology; Physician Assistant; Surgery; Admitting Provider Internal Medicine; Emergency Provider Emergency Medicine; Visit Provider Physician Assistant
PROC: 0JH63WZ Insertion of Totally Implantable Vascular Access Device into Chest Subcutaneous Tissue and Fascia, Percutaneous Approach (ICD-10-PCS; principal; 2020-06-07 14:30)
DX: A41.9 Sepsis, unspecified organism (principal); J96.01 Acute respiratory failure with hypoxia; J90 Pleural effusion, not elsewhere classified; J18.9 Pneumonia, unspecified organism; C78.7 Secondary malignant neoplasm of liver and intrahepatic bile duct; J44.0 Chronic obstructive pulmonary disease with (acute) lower respiratory infection; E22.2 Syndrome of inappropriate secretion of antidiuretic hormone; D69.6 Thrombocytopenia, unspecified; R55 Syncope and collapse; C34.90 Malignant neoplasm of unspecified part of unspecified bronchus or lung; S00.83XA Contusion of other part of head, initial encounter; W19.XXXA Unspecified fall, initial encounter; Z87.891 Personal history of nicotine dependence; D63.0 Anemia in neoplastic disease
CPT/HCPCS: 32555; 36415; 36430; 36600; 70450; 71046; 71275; 77001; 80048; 80053; 80202; 81001; 82040; 82042; 82150; 82247; 82465; 82570; 82607; 82728; 82746; 82805; 82945; 82947; 83540; 83550; 83605; 83615; 83735; 83930; 83935; 83986; 84100; 84155; 84157; 84311; 84439; 84443; 84478; 84550; 85025; 85027; 85055; 85384; 85610; 85730; 86023; 86140; 86850; 86900; 86901; 87015; 87040; 87070; 87075; 87076; 87102; 87116; 87205; 87206; 88104; 88108; 88184; 88305; 88342; 89051; 93005; 93306; 93970; 94640; 96361; 96365; 96367; 96375; 97161; 97165; 99285; A9270; C1769; C1788; C9290; G0378; G0379; J0131; J0456; J0690; J0696; J1644; J1956; J2250; J2270; J2543; J2704; J2930; J3010; J3370; J7030; J7050; P9034; Q9967